=== PATIENT | female | born 1945 | race Caucasian/White ===

== ENCOUNTER 2019-09-09 10:26 | Outpatient (CLI) | payer MEDICARE, SELFPAY ==
--- NOTE | 2019-09-09 10:33 | MM_ITS ---
WS: [id number] SCREENING DIGITAL MAMMOGRAM WITH CAD HISTORY: SCREENING COMPARISON: None available. Bilateral CC and MLO views submitted. Computer aided detection analyzed. Breast composition: There are scattered areas of fibroglandular density. Lobulated mass in the upper- outer quadrant of the LEFT breast at a middle depth measures 10.8 mm in diameter. May be superimposed fibroglandular tissue and adjacent vein. Needs to be further evaluated. Additional benign calcificat ions in each breast. LEFT breast: Spot compression views (CC and MLO). True ML. Ultrasound to follow if abnormality humza hope. MM/[place] [id number] IMPRESSION: BI-RADS: 0-Incomplete: Need additional imaging evaluation FOLLOW UP: Need Additional Imaging
== END 2019-09-09 10:27 | disposition home or self-care (01) ==
LOC: RAD 10:26
PROVIDERS: Family Provider Family Medicine; PCP Family Medicine; Visit Provider Family Medicine
DX: Z12.31 Encounter for screening mammogram for malignant neoplasm of breast (principal)
CPT/HCPCS: 77067

== ENCOUNTER 2019-09-21 09:49 | Outpatient (CLI) | payer MEDICARE, SELFPAY ==
--- NOTE | 2019-09-21 09:57 | US_ITS ---
WS: [id number] ADDITIONAL VIEWS LEFT MAMMOGRAM LEFT BREAST ULTRASOUND HISTORY: LT BREAST MASS COMPARISON: 09/09/2019 LEFT MAMMOGRAM: Spot compression views and true ML. Focal asymmetry persists in the upper outer quadrant of the LEFT breast. Margins are very indistinct in the density is nearly equal to the adjacent breast tissue. This area becomes slightly less apparen t as compared to the prior screening examination. No distortion. LEFT BREAST ULTRASOUND 2-D and color Doppler imaging submitted. No abnormalities noted in the upper outer quadrant of the LEFT breast. US/US breast LT limited* [id number] IMPRESSION: BI-RADS: 3-Probably Benign FOLLOW UP: 6 Month Follow-up Vague asymmetry upper-outer quadrant of LEFT breast. Recommend 6 month follow-u p. Mammogram and ultrasound follow-up recommended.
== END 2019-09-21 09:50 | disposition home or self-care (01) ==
LOC: RADSHAW 09:54
PROVIDERS: Family Provider Family Medicine; PCP Family Medicine; Visit Provider Family Medicine
DX: N63.21 Unspecified lump in the left breast, upper outer quadrant (principal)
CPT/HCPCS: 76642; 77065

== ENCOUNTER 2019-10-05 13:12 | Outpatient (CLI) | payer MEDICARE, SELFPAY ==
--- NOTE | 2019-10-05 14:31 | PFTS_ITS ---
Date of Study:10/05/19 Date of Dictation: MECHANICS: Forced vital capacity (FVC) is normal. Forced expiratory volume in one second (FEV1) is reduced. FEV1/FVC is reduced. FLOW VOLUME LOOP: Reduced flow at all lung volumes. LUNG VOLUMES: Total lung capacity (TLC) is normal. Residual volume (RV) is increased. DIFFUSING CAPACITY FOR CARBON MONOXIDE: Mildly reduced. This has not been corrected for hemoglobin. INTERPRETATION: The pulmonary function tests are consistent with moderate obstructive ventilatory defect. There is significant postbronchodilator response. There is evidence of air trapping without hyperinflation. Gas exchange (DLCO) is mildly reduced. MTDD
== END 2019-10-05 13:13 | disposition home or self-care (01) ==
PROVIDERS: Family Provider Family Medicine; PCP Family Medicine; Visit Provider Family Medicine
DX: R06.2 Wheezing (principal); F17.210 Nicotine dependence, cigarettes, uncomplicated
CPT/HCPCS: 94060; 94726; 94729; J7611

== ENCOUNTER 2020-02-09 09:52 | Outpatient (CLI) | payer MEDICARE, SELFPAY ==
--- NOTE | 2020-02-09 09:59 | MM_ITS ---
WS: [id number] LEFT DIGITAL MAMMOGRAPHY WITH CAD CLINICAL INFORMATION: ABNORMAL MAMMOGRAM COMPARISON: September 21, 2019 TECHNIQUE: 5 views of the left breast were obtained. FINDINGS: Fatty-replaced left breast. Left breast is stable in appearance. Stable vague asymmetry upper outer q uadrant left breast. This is unchanged. Ultrasound is pending. ULTRASOUND BREAST LEFT TECHNIQUE: Ultrasound left breast focused area of concern. CLINICAL INFORMATION: ABNORMAL MAMMOGRAM COMPARISON: September 21, 2019 FINDINGS: Ultrasound left breast obtained at the 1 to 3:00 position. Normal underlying breast tissue. No cystic or solid lesions. No suspicious abnormalities. MM/[place] [id number] IMPRESSION: BI-RADS: 2-Benign FOLLOW UP: 1 Year Follow-up Recommend return to annual screening mammography.
== END 2020-02-09 09:53 | disposition home or self-care (01) ==
LOC: RAD 09:57
PROVIDERS: PCP Family Medicine; Visit Provider Family Medicine
DX: R92.8 Other abnormal and inconclusive findings on diagnostic imaging of breast (principal)
CPT/HCPCS: 76642; 77065

== ENCOUNTER 2020-02-27 12:12 | Observation (INO) | payer MEDICARE, SELFPAY ==
--- NOTE | 2020-02-17 10:08 | ANES.PREANE2 ---
Pre-Anesthetic Assessment Pre-Anesthetic Assessment: Height/Weight: Height 1.65 m Preop Diagnosis: Kne pain Proposed Procedure: Operation Date: 02/27/20 09:50 Proposed Procedures p Left Total Knee Arthroplasty 64607/M17.12(Left) - Carroll Gutierrez MD Familial anesthetic complications: None Social: Social History: No alcohol and No tobacco Exam: Pre-Anes Outpt Exam: alert, oriented x 3 and regular rate & rhythm Additional Exam Findings (including area of procedure): coarse breath sounds b/l Airway: Cervical ROM: WNL MP: 3 Dentition: False Pulmonary: Pulmonary: COPD (BID breathing treatments ) and CHILDS CV/HEM: CV/HEM: HTN : : None reported Hepatic: Hepatic: None reported GI: GI: None reported Metabolic: Metabolic: Hyperlipidemia Musc/skel: Musc/skel: OA/DJD Neuropsych: Neuropsych: None reported Anesthetic Plan: ASA status: 3 Anesthesia: General and Regional (specify below) Other: adductor Risk of > 500 ml blood loss (7ml/kg in children): Yes, adequate IV access and fluids planned PFSH Anesthesia PFSH: Social History (Updated 02/07/20 @ 09:30 by Bogdan Ponce LPN) Smoking and tobacco status: never smoked Alcohol intake: never Data Anesthesia Cardiac Studies: No Data to Display
--- NOTE | 2020-02-17 10:32 | ECG_ITS ---
[facility] ED Test Date: 2020-02-17 Pat Name: Keyona Chavarria Department: Room: Gender: Female V Belt Curer: : 1945 Requested By: Ena Lee Order Number: [id number] Gee MD: Chriss Guan M.D. Measurements Intervals Maud Rate: 65 P: 62 DE: 160 QRS: -8 QRSD: 83 T: 58 QT: 354 QTc: 369 Interpretive Statements SINUS RHYTHM No previous ECG available for comparison Electronically Signed On 02-17-2020 21:52:29 CDT by Chriss Guan M.D. [id number]
[2020-02-17 10:34] VITALS: BMI 33.3
[2020-02-27] VITALS (26 sets, daily range): BP systolic 134–225; BP diastolic 70–165; PULSE 59–88; RESP 9–24; TEMP 36.2–36.9; O2SAT 90–97
[2020-02-27] MEDS: sodium chloride 0.9% 1,000 ML 100 ML IV (08:39)
[2020-02-27] MEDS: sodium chloride 0.9% 1,000 ML 30 ML IV (08:40)
--- NOTE | 2020-02-27 09:21 | ANES.PROC ---
Anesthesia Procedures Procedure/Date: 02/27/20 Nerve Block ^: Nerve Block 1: Main Anesthesia: general anesthesia Time Out Performed: Yes Consent: requested by attending/covering physician, risks and benefits reviewed and patient agrees to proceed Nerve block location: adductor canal (left) Anesthesia monitors applied: pulse oximetry, EKG, BP cuff and oxygen Nerve block position: supine Anesthetic Used: ropivicaine 0.5% and with decadron (4mg) Amount of anesthesia used (mL): 30 Ultrasound used to: recognize landmarks Nerve Stimulator Used?: No Interscalene/Femoral BLK: 4 stimuplex 21 g needle used for position and inplane approach, visualize local anesthetic spread and no vascular puncture identified Injection: neg aspiration of heme Patient Tolerated Procedure: well and no complications Complications: none
--- NOTE | 2020-02-27 10:22 | W.PM.OPSUD ---
Surgery/Procedure H&P Update DATE OF PROCEDURE: February 27, 2020 DATE H&P PERFORMED: 02/07/20 PREOP DIAGNOSIS: Osteoarthritis left knee PLANNED PROCEDURE: Operation Date: 02/27/20 09:50 Proposed Procedures p Left Total Knee Arthroplasty 05616/M17.12(Left) - Carroll Gutierrez MD
--- NOTE | 2020-02-27 11:06 | SUR.OPER ---
called daughter and notified her of surgery start.
--- NOTE | 2020-02-27 12:21 | PM.OP ---
Operative Report Date of procedure: February 27, 2020 Pre-op Diagnosis: Osteoarthritis left knee Post-op diagnosis: same Post-op Findings: Same Procedure Done: Left total knee arthroplasty Pathology: none sent Surgeon: Carroll Gutierrez Anesthesia: General and Nerve Block (Adductor canal) Estimated blood loss (mL): 350 Complications: None Findings: Patient had severe eburnation over the medial femoral condyle, medial tibial plateau, patella and trochlea Procedure: The patient was taken to the operating room. Patient was given 1 g of tranexamic acid . The above anesthesia provided by the anesthesia service. A timeout was performed. The patient was prepped and draped in the usual fashion with the lower extremity exposed. A anterior incision was made, midline, from a point proximal to the patella to the distal tibial tubercle. Knee was entered through a medial parapatellar approach. the patellar fat pad was resected to provide better visibility. Retractors were placed medially and laterally adjacent to the tibial plateau. The femoral canal was drilled in line with the longitudinal axis of the femur. Intramedullary femoral guide for used to make a distal femoral cut in 5 degrees of valgus, resecting 8 mm from the more prominent condyle. Next the extra medullary tibial guide was placed in alignment with the longitudinal axis of the tibia. The cutting guides were set to remove just over 9 mm from the high tibial plateau. The proximal tibia was then cut. The femoral measuring guide was then placed over the distal femur. Rotation was verified checking the relationship of the guide to the condyle and the trochlear groove. The femur was measured and cut for the desired femoral component. The desired tibial baseplate was then chosen. A trial reduction with the femur tibial baseplate and polyethylene was done, assuring that the knee was stable throughout full motion. Ligament balancing no more than a release of the deep medial collateral ligament and removal of medial osteophytes. The tibia was prepared for the tibial baseplate. Patellar thickness was then measured. The patella was cut removing articular cartilage and prepared for appropriate size patellar button. All surfaces were cleaned with pulsatile lavage. The femur tibia and patella were then press-fit into place. The posterior capsule and collateral ligaments were then injected with a solution of 100 mL of 0.2% ropivacaine, 1 mL of a 1:1000 epinephrine solution, and 30 mg of Toradol. Final polyethylene component was then snapped into place into the tibia. 2 grams of tranexamic acid were applied to the wound. The tourniquet was deflated. The tranxanemic acid was left contact with the knee for 5 minutes before the knee was irrigated with saline. The extensor retinaculum was closed with 1 Ethibond. The subcutaneous tissues were closed with 2-0 Vicryl and the skin was closed with skin ruddy. A compressive dressing was applied. The patient was taken to recovery room in stable condition. Copybar total knee arthroplasty components were used includin) Size 3 triathalon cruciate retaining femoral component 2) Size 3 Tritanium tibial component 3) 82 mm /10 mm thickness Tritanium asymetric patella 4) Size 3/13 mm thickness CR tibial bearing insert
[2020-02-27] MEDS: fentaNYL 50 mcg/mL INJ 2mL IVP ×2 (12:34→12:56)
--- NOTE | 2020-02-27 12:34 | XR_ITS ---
NOTE: Report was unsigned for reason: Order was edited. Original Signature date and time was: 02/27/20 @1300 WS: [id number] LEFT KNEE 2 VIEWS AP and cross table lateral imaging is submitted. HISTORY: Status post left total knee arthroplasty. COMPARISON: 01/26/2020 Total knee replacement prosthetic devices are in good position and alignment. Normal position of the patella. Posterior patella prosthesis.. Numerous postsurgical sutures are noted over the anterior knee and there are normal postoperative changes in the soft tissues consistent with air, blood and edema. No complications are evident. MTDD XR/XR knee LT 3V* [id number] IMPRESSION: Satisfactory appearance of the recent LEFT knee arthroplasty.
[2020-02-27] MEDS: ipratropium 0.5 mg/2.5 mL Neb INHALATION (12:42)
--- NOTE | 2020-02-27 12:48 | SUR.PHASEI ---
1229 PATIENT TO PACU FROM OR. RESTLESS IN BED, C/O PAIN. DRESSING INTACT TO LEFT KNEE WITH FRANCINE BANDAGE IN PLACE. LEFT PEDAL PULSE, STRONG, MARKED. TABARES CATH DRAINING WITH CLEAR YELLOW URINE. PATIENT PLACED ON SIMPLE MASK AT 8L, SPO2 95%.
[2020-02-27] MEDS: hyDRALAzine 20 mg/mL INJ 1 mL 5 MG IVP (13:27)
--- NOTE | 2020-02-27 13:42 | SUR.PHASEI ---
1333 PATIENT TO MED SURG AT THIS TIME. PAIN TO LEFT KNEE IMPROVED. FIRST ICE IN PLACE.
[2020-02-27] MEDS: lactated ringers 1,000 ML 80 ML IV (14:26)
[2020-02-27] MEDS: oxyCODONE 5 mg IR Tab/Cap PO ×2 (15:17→19:45)
[2020-02-27] MEDS: chlorhexidine gluconate 0.12% Btl 473 mL 30 ML MUCOUS MEM ×2 (17:20→20:13)
[2020-02-27] MEDS: mupirocin oint 22 gm 1 APPLIC TOPICAL (17:22)
[2020-02-27] MEDS: calcium carbonate 500 mg Chew Tablet 1000 MG PO (17:22)
[2020-02-27] MEDS: iron polysaccharide complex 150 mg Capsule PO (17:22)
[2020-02-27] MEDS: sennosides-docusate Tablet 2 TAB PO (17:22)
[2020-02-27] MEDS: CELEcoxib 200 mg Capsule PO (20:13)
[2020-02-28] VITALS (10 sets, daily range): BP systolic 129–180; BP diastolic 64–91; PULSE 75–87; RESP 16–22; TEMP 36.6–37.2; O2SAT 92–96
[2020-02-28] MEDS: oxyCODONE 5 mg IR Tab/Cap PO ×4 (02:23→15:43)
[2020-02-28] MEDS: lactated ringers 1,000 ML 80 ML IV (03:26)
[2020-02-28 04:25] LABS: Hemoglobin 12.6 g/dL (11.5-15.3)
--- NOTE | 2020-02-28 06:20 | SUR.OPER ---
PATIENT DID WELL THROUGH THE NIGHT. REPORTS OF PAIN AND CONTROLLED WITH PRN OXY IR. PATIENT DID NOT SLEEP MUCH. OUTPUT WNL.
--- NOTE | 2020-02-28 08:16 | PM.DCS ---
Discharge Providers Date of Admission: 02/27/20 12:12 Date of Discharge: February 28, 2020 Attending Provider at Admission: Carroll Gutierrez MD Attending Provider at Discharge: Carroll Gutierrez MD Primary Care Provider: Radhika Kaminski MD Diagnoses at Discharge Discharge Diagnosis (1) Status post left knee replacement: Status: Acute (2) Osteoarthritis of left knee: Status: Acute Reason for Visit Reason for Visit: patient agreed to pay $300.00 day of surgery Hospital Course Hospital Course: Patient was admitted for an elective left total knee arthroplasty on 02/27/2020. She did very well postoperatively. By the first day she was up with her walker independent. Her pain was controlled with oxycodone. She was thought stable for discharge. He was managed with aspirin and sequential compression dressings for deep venous thromboses. Physical Exam Narrative: EXAM NARRATIVE: On 02/28/2020 the patient left knee dressing was clean and dry. She can perform a straight leg raise. He was visualized ambulatory with a walker. She had no distal neurovascular deficits I can appreciate. Urinary Catheter Management^: Taylor: Cath Placed During This Visit: yes, but has since been removed by the nurse Reason for Continuing Indwelling Catheter: Decision to DC Catheter Urinary Catheter Date of Insertion: 02/27/20 Urinary Catheter Time of Insertion: 10:35 Date Urinary Catheter Removed: 02/28/20 Time Urinary Catheter Discontinued: 07:18 Discharge Data Data Completed and Pending: Completed Studies During Hospitalization Category Date Time Status XR knee LT 3V* [id number] Routine Exams 02/27/20 12:34 Completed Labs from last 24 hours 02/28/20 03:15 Hgb 12.6 Vitals: Last Vital Signs Temp 98.9 F 02/28/20 04:48 Pulse 87 02/28/20 04:48 Resp 16 02/28/20 06:48 BP 147/73 02/28/20 04:48 Pulse Ox 92 02/28/20 04:48 Discharge Plan Discharge Patient Disposition: Home, Self-Care Condition: Stable Prescriptions: New oxycodone 5 mg Tablet 5 mg PO Q4H PRN (Reason: Moderate Pain) Qty: 40 RF: 0 aspirin 325 mg Tablet,Delayed Release (Dr/Ec) 325 mg PO DAILY Qty: 30 RF: 0 Continued lisinopril 5 mg tablet 15 mg PO DAILY RF: 0 lovastatin 10 mg tablet 10 mg PO DAILY RF: 0 mupirocin 2 % ointment 1 applic TOPICAL BID Qty: 22 RF: 0 meloxicam 7.5 mg Tablet 15 mg PO DAILY RF: 0 Vitamin D3 10 mcg (400 unit) Capsule 10 mcg PO DAILY RF: 0 Fish Oil 1,000 mg (120 mg-180 mg) Capsule 2 cap PO DAILY RF: 0 Vitamin B-12 5,000 mcg/mL Drops 5,000 mcg SUBLINGUAL DAILY RF: 0 Discharge Orders: Discharge Order (Routine); Ordered 02/28/20 Ordered By: Carroll Gutierrez Other Ambulatory Orders: DME: Walker (Order) Location: None Selected Ordered By: Carroll Gutierrez Referrals: [facility] [place] [Outside] [facility] ([facility]) [Outside] Carroll Gutierrez MD [Physician] - 03/12/20 2:45 pm Discharge Diet: Advance as tolerated Discharge Activity: Resume usual activity Activity Restrictions/Additional Instructions: May shower once incisions completely free of drainage. Replaced dressings as needed for drainage.. Take oxycodone for breakthrough pain. Exercises per physical therapy. Ice and elevate knees as needed for pain and swelling.. Discharge Attestations Time Spent in Discharge Care*: other Quality Metrics Clinical Quality Measures During this hospital stay, did patient experience: None Coding Level of Care Code Acute Therapy Coordinator for [facility] Diagnoses Status post left knee replacement Z96.652 Osteoarthritis of left knee M17.12
[2020-02-28] MEDS: lisinopril 10 mg Tablet 15 MG PO (09:27)
[2020-02-28] MEDS: multivitamin therapeutic Tablet 1 TAB PO (09:28)
[2020-02-28] MEDS: aspirin 325 mg EC Tablet PO (09:28)
[2020-02-28] MEDS: sennosides-docusate Tablet 2 TAB PO (09:28)
[2020-02-28] MEDS: cholecalciferol (vitamin D3) 1,000 unit Tablet 1000 UNIT PO (09:29)
[2020-02-28] MEDS: atorvastatin 40 mg Tablet 20 MG PO (09:29)
[2020-02-28] MEDS: CELEcoxib 200 mg Capsule PO (09:29)
[2020-02-28] MEDS: calcium carbonate 500 mg Chew Tablet 1000 MG PO (09:30)
[2020-02-28] MEDS: iron polysaccharide complex 150 mg Capsule PO (09:30)
[2020-02-28] MEDS: mupirocin oint 22 gm 1 APPLIC TOPICAL (09:31)
--- NOTE | 2020-02-28 17:59 | PC.NURSE ---
Pt taken to personal vehicle in wheelchair. Mask worn when she left room until she removed outside. All discharge questions gone over with pt and daughter.
== END 2020-02-28 18:00 | disposition home or self-care (01) ==
LOC: MEDSURG 12:12
PROVIDERS: Admitting Provider Orthopaedic Surgery; PCP Family Medicine; Visit Provider Orthopaedic Surgery
PROC: (CPT 27447; principal; 2020-02-27 09:50)
DX: M17.12 Unilateral primary osteoarthritis, left knee (principal); J44.9 Chronic obstructive pulmonary disease, unspecified; I10 Essential (primary) hypertension; E78.5 Hyperlipidemia, unspecified; M19.90 Unspecified osteoarthritis, unspecified site
CPT/HCPCS: 27447; 12345; 36415; 51702; 73560; 73562; 85018; 93005; 96365; 96366; 96374; 97110; 97116; 97161; 97166; 97530; C1776; G0378; J0131; J0360; J0690; J1100; J1580; J2001; J2405; J2704; J2795; J3010; J7030; J7611; J7644

== ENCOUNTER → 2020-04-10 14:13 | Outpatient (BNVA) | payer MEDICARE, SELFPAY | PROVIDERS: PCP Family Medicine; Visit Provider Orthopaedic Surgery | DX: Z47.1 Aftercare following joint replacement surgery (principal); Z96.652 Presence of left artificial knee joint | CPT/HCPCS: 73560; 73565 ==

== ENCOUNTER 2020-04-17 18:33 | Inpatient (IN) | payer MEDICARE, SELFPAY ==
[2020-04-17 19:20] VITALS: BP 122/79; PULSE 88; RESP 18; TEMP 35.9; O2SAT 96; BMI 33.3
--- NOTE | 2020-04-17 20:16 | XRR_ITS ---
PROCEDURE INFORMATION: Exam: XR Left Knee Exam date and time: 04/17/2020 10:27 PM Age: 74 years old Clinical indication: Injury or trauma; Fall; Initial encounter; Blunt trauma; Left; Injury date: 04/17/20; Prior surgery; Surgery type: Lt knee TECHNIQUE: Imaging protocol: XR Left knee. Views: 3 views. COMPARISON: CR XR knee LT 1-2V [id number] 04/10/2020 2:20 PM FINDINGS: Bones/joints: Status post left knee arthroplasty with femoral, tibial, and patellar components. There is a comminuted fracture of the distal femoral metaphysis. The major distal fragment has been displaced approximately 2.5 cm posteriorly relative to the major proximal fragment. The metallic hardware is intact. No knee dislocation. Large knee joint effusion. Soft tissues: No subcutaneous gas or radiopaque foreign body identified. XR/XR knee LT 3V* [id number] IMPRESSION: 1. There is a comminuted fracture of the distal femoral metaphysis. The major distal fragment has been displaced approximately 2.5 cm posteriorly relative to the major proximal fragment.
--- NOTE | 2020-04-17 21:08 | ED_ITS ---
HPI - Fall General: Chief Complaint: Fall Stated Complaint: fell Time Seen by Provider: 04/17/20 20:55 Source: patient Mode of arrival: ambulatory Limitations: no limitations History of Present Illness: HPI Narrative: 74-year-old female who had a knee replacement her right knee in February. Patient states she tripped and fell 2 hours before arrival. She landed on her right knee and has had severe right knee pain since then. States pain is 9 out of 10 is much worse with movement and cannot stand. She denies any other injuries. MD complaint: fall Onset (ago): hour(s) Fall from: standing Associated symptoms-after fall: Denies abdominal pain, chest pain or headache(s) Review of Systems Const: Denies: fever(s), chills, body aches or change in appetite Eyes: Denies: blurry vision or eye discomfort ENMT: Denies: throat pain or dental pain Card: Denies: chest pain Resp: Denies: dyspnea GI: Denies: abdominal pain, nausea, vomiting or diarrhea : Denies: dysuria Musc: Reports: joint pain Skin/Breast: Denies: rash Neuro: Denies: headache(s) Psych: Denies: depression Christiano/Lymph: Denies: easy bruising All/Imm: Denies: urticaria PFSH ED PFSH: Social History Smoking and tobacco status: never smoked Alcohol intake: never Physical Exam Const: COMMON NORMALS: no acute distress, patient oriented x3 and healthy appearing HENMT: COMMON NORMALS: normocephalic and atraumatic HEAD & SCALP: normocephalic and atraumatic Eye: COMMON NORMALS: Equal, round and reactive pupils present and EOMs intact bilaterally PUPIL: Yes Equal, round and reactive pupils present Neck/C-Spine: COMMON NORMALS: full ROM and supple Chest: COMMONS NORMALS: normal inspection of the chest and normal palpation of entire chest wall Resp: COMMON NORMALS: normal respiratory effort, No retractions, No use of accessory muscles and clear to auscultation bilaterally AUSCULTATION: clear to auscultation bilaterally Cardio: COMMON NORMALS: regular rate, regular rhythm and No murmurs present (Cardio) RATE: regular rate RHYTHM: regular rhythm GI: COMMON NORMALS: Normal to inspection, nondistended, normoactive bowel sounds present, Soft to palpation, non-tender and no masses PALPATION: Yes So ft to palpation Extremity: NARRATIVE EXTREMITY EXAM: Tenderness over right knee. Distal pulses intact patient is feeling to sensation to her foot is able to plantar and dorsiflex her foot. Neuro: COMMON NORMALS: patient oriented x3, moves all extremities and no focal motor deficits Psych: COMMON NORMALS: mental status grossly normal, Normal thought process present and cooperative THOUGHT PROCESS: Normal thought process present Skin: COMMON NORMALS: no rashes or lesions noted and no wounds GENERAL SKIN EXAM: no rashes or lesions noted Course Vital Signs: Vital signs: Vital Signs Temperature 96.6 F L 04/17/20 19:20 Pulse Rate 75 04/17/20 21:18 Respiratory Rate 18 04/17/20 21:18 Blood Pressure 131/68 04/17/20 21:18 Pulse Oximetry 97 04/17/20 21:18 MDM - Fall MDM Narrative: Medical decision making narrative: Patient presents with a dis cristino femur fracture to her right leg. I spoke to Dr. Garcia who is consulted. I also spoke to Dr. Pina who is admitting. Patient placed in a knee immobilizer. Patient has distal pulses intact and able to feel sensations after knee immobilizer placement as well. Patient's been stable while in the ER. Lab Data: Labs: Lab Results 04/17/20 04/17/20 Range/Units 21:15 21:15 WBC 19.4 H (4.0-10.0) 10^3/ uL RBC 4.93 (4.1-5.3) 10^6/u L Hgb 13.9 (11.5-15.3) g/dL Hct 45.7 (37.0-47.0) % MCV 92.7 (81-99) fL MCH 28.2 (28.0-34.0) pg MCHC 30.4 (30.0-36.0) g/dL RDW 13.2 (12.1-15.1) % Plt Count 310 (130-400) 10^3/c mm MPV 8.7 (7.4-10.4) fL Neut % (Auto) 79.0 % Lymph % (Auto) 13.9 % Coles % (Auto) 5.6 % Eos % (Auto) 0.5 % Baso % (Auto) 0.4 % Neut # (Auto) 15.34 H (1.8-7.7) 10^3/u L Lymph # (Auto) 2.7 (0.8-4.8) 10^3/u L Coles # (Auto) 1.1 H (0.2-0.9) 10^3/u L Eos # (Auto) 0.1 (0.0-0.8) 10^3/u L Baso # (Auto) 0.1 (0.0-0.1) 10^3/u L Nucleated RBC % (a uto) 0 % Nucleated RBCs # 0.0 /100WBC Sodium 138 (136-145) mmol/L Chloride 104 (98-107) mmol/L GFR Calculation Not Reportable Calculated Osmolal ity 286 (285-295) mOsm/k g Calcium 9.6 (8.5-10.5) mg/dL Imaging Data^: xr r knee: Attestation: I personally reviewed and interpreted this imaging study as follows: My impression: Distal femur fracture noted Discharge Plan Discharge Patient Disposition: Admitted As Inpatient Clinical Impression: Fall Qualifiers: Encounter type: initial encounter Qualified Code(s): W19.XXXA - Unspecified fall, initial encounter Femoral distal fracture Qualifiers: Encounter type: initial encounter Fracture type: closed Fracture morphology: unspecified fracture morphology Laterality: right Qualified Code(s): S72.401A - Unspecified fracture of lower end of right femur, initial encounter for closed fracture Condition: Stable Referrals: Radhika Kaminski MD [Primary Care Provider] - Coding Level of Care Code ED Loan Documents Closer for [facility] Fwd Exam Comprehensive
[2020-04-17 21:18] VITALS: BP 131/68; PULSE 75; RESP 18; O2SAT 97
[2020-04-17] MEDS: HYDROmorphone 1 mg/mL INJ 1 mL IVP (21:19)
[2020-04-17] MEDS: ondansetron 2 mg/ML SDV 2 mL 4 MG IVP (21:19)
[2020-04-17 21:22] LABS: Basophils # 0.1 10^3/uL (0.0-0.1); Basophils % 0.4 %; Eosinophils # 0.1 10^3/uL (0.0-0.8); Eosinophils % 0.5 %; Hematocrit 45.7 % (37.0-47.0); Hemoglobin 13.9 g/dL (11.5-15.3); Lymphocytes # 2.7 10^3/uL (0.8-4.8); Lymphocytes % 13.9 %; Mean Corpuscular HGB Conc 30.4 g/dL (30.0-36.0); Mean Corpuscular Hemoglobin 28.2 pg (28.0-34.0); Mean Corpuscular Volume 92.7 fL (81-99); Mean Platelet Volume 8.7 fL (7.4-10.4); Monocytes # 1.1 10^3/uL (0.2-0.9); Monocytes % 5.6 %; Neutrophils # 15.34 10^3/uL (1.8-7.7); Nucleated Red Blood Cells % 0 %; Platelet Count 310 10^3/cmm (130-400); Red Blood Count 4.93 10^6/uL (4.1-5.3); Red Cell Distribution Width 13.2 % (12.1-15.1); White Blood Count 19.4 10^3/uL (4.0-10.0)
--- NOTE | 2020-04-17 21:24 | XRR_ITS ---
PROCEDURE INFORMATION: Exam: XR Chest, 1 View Exam date and time: 04/17/2020 9:55 PM Age: 74 years old Clinical indication: Other: HTN TECHNIQUE: Imaging protocol: XR of the chest Views: 1 view. COMPARISON: CR Chest 2 views* [id number] 05/17/2014 1:32 PM FINDINGS: Lungs: The lungs are clear bilaterally. Pulmonary vasculature within normal limits. Pleural space: No visible pneumothorax or pleural effusion. Heart/Mediastinum: Cardiomediastinal silhouette contour within normal limits. Bones/joints: No emergent findings identified. XR/XR chest 1V portable [id number] IMPRESSION: 1. No radiographic findings of acute cardiopulmonary disease.
[2020-04-17 21:42] LABS: Blood Urea Nitrogen 28 mg/dL (8-23); Calcium 9.6 mg/dL (8.5-10.5); Carbon Dioxide 19 mmol/L (22-29); Chloride 104 mmol/L (98-107); Glucose 154 mg/dL (65-115); Osmolality Calculated 286 mOsm/kg (285-295); Sodium 138 mmol/L (136-145)
[2020-04-17 21:45] LABS: Anion Gap 19.2 (5-19); Potassium 4.2 mmol/L (3.5-5.1)
[2020-04-17 22:05] LABS: INR 1.02 (0.8-1.2)
--- NOTE | 2020-04-17 22:35 | P.HP_ITS ---
Providers/Chief Complaint Admitting Physician: Chriss Medina MD Primary Care Provider: Radhika Kaminski MD Chief Complaint: fell History of Present Illness Keyona Chavarria is a 74 year old female who carries history of osteoarthritis, non- oxygen dependent COPD, coronary artery disease, GERD, osteoarthritis of left knee status post knee replacement came in after sustaining a fall. Patient is stating that she was planning to go to the restaurant today when she lost her balance, she tripped over and fell on her left side and heard a popping in her knee. She was not able to bear any weight, she called her family, she was brought to the ER, diagnostics in the ER revealed distal left femur fracture, knee brace was placed, orthopedic consult placed, patient did not experience any chest pain, shortness of breath, palpitations, fever, change in bowel movements or dysuria before this event. She is endorsing to losing her balance and falling on the concrete ground. She is denying any previous history of seizures or arrhythmias. She is tachycardic and tachypneic. MARY on BMP. He is afebrile. Chest x-ray with linear atelectasis versus infiltrate right lower base, I will give her Levaquin and fluids because she meet sepsis criteria Review of Systems Const: Reports: chills, body aches and fatigue; Denies: fever(s) Eyes: Denies: change in vision ENMT: Denies: throat pain Card: Denies: chest pain Resp: Denies: dyspnea GI: Denies: abdominal pain : Denies: flank pain Musc: Denies: neck pain Skin/Breast: Reports: lesions Neuro: Denies: headache(s) Psych: Denies: anxiety Endo: Denies: polyuria Christiano/Lymph: Denies: easy bruising All/Imm: Denies: urticaria Medications/Allergies Home Medications Medication Instructions Recorded Confirmed Last Taken Type lisinopril 5 mg tablet 15 mg PO DAILY tab 02/07/20 04/17/20 04/17/20 History lovastatin 10 mg tablet 10 mg PO DAILY 02/07/20 04/17/20 04/17/20 History Vitamin B-12 5,000 mcg SUBLINGUAL DAILY 02/17/20 04/17/20 04/17/20 History cholecalciferol (vitamin D3) 10 mcg PO DAILY 02/17/20 04/17/20 04/17/20 History [Vitamin D3] meloxicam 15 mg PO DAILY 02/17/20 04/17/20 04/17/20 History omega 8-obh-wkq-fish oil [Fish Oil] 2 cap PO DAILY 02/17/20 04/17/20 04/17/20 History mupirocin 2 % topical ointment 1 applic TOPICAL BID #22 gm 02/20/20 04/17/20 Unknown Rx albuterol sulfate 2 puff INHALATION Q4H PRN 04/17/20 04/17/20 04/17/20 History fluticasone propion-salmeterol 1 inh INHALATION BID 04/17/20 04/17/20 04/17/20 History [Wixela Inhub] Allergies Allergy/AdvReac Type Severity Reaction Status Date / Time No Known Allergies Allergy Verified 04/17/20 21:32 PFSH Acute PFSH: Medical History Asthma 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 with reduced DLCO however total lung capacity is normal increased residual volume COPD (chronic obstructive pulmonary disease) Coronary disease GERD (gastroesophageal reflux disease) Osteoarthritis of left knee Sinus bradycardia Surgical History Coronary angioplasty status Status post left knee replacement Family History Brother CAD (coronary artery disease) Social History (Updated 04/18/20 @ 01:43 by Chriss Medina MD) Smoking and tobacco status: former smoker Alcohol intake: never Substance/Drug Use: never Housing: House Vitals/I&O/Wt Last Vital Signs Temp 96.6 F L 04/17/20 19:20 Pulse 75 04/17/20 21:18 Resp 18 04/17/20 21:18 BP 131/68 04/17/20 21:18 Pulse Ox 97 04/17/20 21:18 Weight last 48 hrs Weight 90.718 kg Physical Exam Narrative: EXAM NARRATIVE: Very pleasant elderly female currently laying comfortably in her bed She has left-sided knee brace no vascular compromise of bilateral lower extremities No active respiratory distress Afebrile S1, S2 no tachycardia heart failure Abdomen soft nontender nondistended bowel sound present Neurologically no focal deficit EOMI, PERRLA Appropriate mood and affect Lungs are clear to auscultation No skin ulcers found Data : 04/17/20 21:15 04/17/20 21:15 A&P Assessment and plan (1) Femoral distal fracture: Status: Acute Qualifiers: Encounter type: initial encounter Fracture morphology: unspecified fracture morphology Fracture type: closed Laterality: left Qualified Code(s): S72.402A - Unspecified fracture of lower end of left femur, initial encounter for closed fracture (2) Fall: Status: Acute Qualifiers: Encounter type: initial encounter Qualified Code(s): W19.XXXA - Unspecified fall, initial encounter (3) Sepsis: Status: Acute (4) Community acquired pneumonia: Status: Acute Additional A&P Information Left distal femoral fracture Left knee brace Analgesia with bowel regimen Orthopedic count No vascular compromise of lower extremity Sepsis secondary to community-acquired pneumonia Right lower base infiltrate Tachycardic, tachypneic, leukocytosis, I will treat her with Levaquin Check urine antigen Low risk for SARS COVID-19 Hypertension: Currently normotensive, monitor overnight, hold lisinopril to avoid vaso-plegic shock perioperatively Patient has good functional capacity, considering urgent nature of the surgery would not require any cardiac work-up, RCRI class I risk Full code VT prophylaxis currently on SCDs, anticipating surgical intervention tomorrow morning N.p.o. Attestations Medical Necessity Statement*: Anticipating stay in the hospital course more than 2 midnights currently need IV antibiotics for pneumonia and need surgical intervention for left femur fracture Time Spent in Patient Care: (>than 50% of time spent in counselling and/or direct pt care on unit) . 40 minutes Coding Level of Care Code Acute Cost Estimating Manager for Chg Fwd Diagnoses Femoral distal fracture S72.402A Encounter type: initial encounter Fracture morphology: unspecified fracture morphology Fracture type: closed Laterality: left Fall W19.XXXA Encounter type: initial encounter Sepsis A41.9 Community acquired pneumonia J18.9
[2020-04-17 22:47] VITALS: BP 115/75; PULSE 102; RESP 14; O2SAT 94
[2020-04-17 22:52] VITALS: BP 123/56; PULSE 85; RESP 14; O2SAT 96
[2020-04-17] MEDS: dextrose 5%-sod chloride 0.45% 1,000 ML 75 ML IV (23:37)
[2020-04-17 23:58] VITALS: RESP 20
[2020-04-17] MEDS: morphine 4 mg/mL SDV 1 mL IVP (23:58)
[2020-04-18] VITALS (22 sets, daily range): BP systolic 81–133; BP diastolic 51–86; PULSE 75–103; RESP 14–24; TEMP 36.4–37.7; O2SAT 90–100
--- NOTE | 2020-04-18 | SCC_ITS ---
Procedure Done: Open reduction internal fixation left distal femur 205.9 seconds of fluoroscopic guidance, for a cumulative dose of 18.67 mGy, was provided to Dr. Gutierrez by the radiology department. C-arm images of the LEFT knee were saved for the patient's permanent record. [facility]
[2020-04-18] MEDS: levofloxacin-dextrose 5 % 750 MG/150 ML PREMIX 100 MG IV (04:02)
[2020-04-18 05:06] LABS: Basophils % 0.3 %; Eosinophils % 0.2 %; Hematocrit 37.4 % (37.0-47.0); Hemoglobin 11.4 g/dL (11.5-15.3); Lymphocytes # 2.9 10^3/uL (0.8-4.8); Lymphocytes % 22.5 %; Mean Corpuscular HGB Conc 30.5 g/dL (30.0-36.0); Mean Corpuscular Hemoglobin 27.9 pg (28.0-34.0); Mean Corpuscular Volume 91.4 fL (81-99); Mean Platelet Volume 8.9 fL (7.4-10.4); Monocytes # 1.1 10^3/uL (0.2-0.9); Monocytes % 8.7 %; Neutrophils % 67.9 %; Nucleated Red Blood Cells % 0 %; Platelet Count 271 10^3/cmm (130-400); Red Blood Count 4.09 10^6/uL (4.1-5.3); Red Cell Distribution Width 13.2 % (12.1-15.1)
[2020-04-18 05:29] LABS: Anion Gap 13.5 (5-19); Blood Urea Nitrogen 33 mg/dL (8-23); Calcium 8.7 mg/dL (8.5-10.5); Carbon Dioxide 22 mmol/L (22-29); Chloride 104 mmol/L (98-107); Glucose 153 mg/dL (65-115); Osmolality Calculated 280 mOsm/kg (285-295); Potassium 4.5 mmol/L (3.5-5.1); Sodium 135 mmol/L (136-145)
[2020-04-18 06:04] LABS: Add Urine Microscopic? YES; Bacteria Urine TRACE; Bilirubin Urine 1+ (NEGATIVE); Blood Urine Neg (Negative); Glucose Urine UA Norm (Normal); Ketones Urine Negative (Negative); Leukocyte Esterase Urine Negative (Negative); Nitrate Urine Negative (Negative); Protein Urine 1+ (Negative); RBC Urine RARE /hpf (0-2); Squamous Epithelial Cell Urine RARE (0-5); Urine Appearance Cloudy (CLEAR); Urine Color Yellow (Yellow); Urobilinogen Urine 1 mg/dL (Negative); WBC Urine 0-4 /hpf (0-5); pH Urine 5 (5-7)
[2020-04-18] MEDS: sennosides-docusate Tablet 1 TAB PO (08:37)
[2020-04-18] MEDS: morphine 4 mg/mL SDV 1 mL IVP (08:56)
--- NOTE | 2020-04-18 14:13 | PC.CHAP ---
Pastoral Care Encounter/Spiritual Assessment Type of Contact [] Declined buckle coverer visit [] Patient/Family/Request visit [] Outpatient visit [] Follow-up visit [] Physician referral [] Code/Alert [X] Routine visit [] Staff referral [] Actively dying [] Patient sleeping [] Family support [] [] Out of room [] Palliative care [] [] Receiving care in room [] Pre-surgical visit [] Trauma [] Long length of stay [] ICU visit [] Other: Relational/Emotional Strength [] Patient feels connected with others/family/visitors/staff [] Distress [] Loneliness/isolation [] Abandonment Spirituality of Patient [] Person of Mago [] Attends Uatsdin of their Mago [] Believes in Prayer [] Reads Bible or Sabianism materials [] There are Spiritual issues to be addressed Office Services Specialist Interventions [] Prayer [] Active listening [] Non-anxious presence [] Spiritual/emotional support [] Crisis/trauma care [] Spiritual counseling [] Bereavement support [] Provided bereavement packet [] Provided Bible/devotional materials [] Provided toy/stuffed animal, coloring book to patient or family member [] Provided Communion [] Anointing/[place] [] Salvation [] Completed spiritual assessment [] Other: Impact on Illness or Injury [] Angry [] Fearful [] Anxious [] Often cries [] Exhaustion [] Unable to work [] Unable to attend muslim [] Unable to walk/stand [] Unable to read [] Unable to drive [] Unable to eat/drink [] Unable to sleep [] Unable to be with family [] Patient intubated [] Other: Summary Time spent with patient
--- NOTE | 2020-04-18 16:09 | ANES.PREANE2 ---
Pre-Anesthetic Assessment Pre-Anesthetic Assessment: Height/Weight: Height 1.65 m Weight 90.718 kg Temp Pulse Resp BP Pulse Ox 98.6 F 75 18 81/51 94 04/18/20 15:22 04/18/20 15:22 04/18/20 15:22 04/18/20 15:22 04/18/20 15:22 Preop Diagnosis: Osteoarthritis left knee Proposed Procedure: Operation Date: 04/18/20 16:00 Proposed Procedures p ORIF LEFT KNEE PERIPROSTHETIC FX(Left) - Carroll Gutierrez MD Was Beta Nataly taken within 24 hours: Yes Last intake: Intake Last Liquid Date 04/17/20 Last Liquid Time 18:00 Last Solid Date 04/17/20 Last Solid Time 18:00 Social: Social History: No alcohol and No tobacco Exam: Pre-Anes Outpt Exam: alert, oriented x 3, clear to auscultation bilaterally and regular rate & rhythm Airway: MP: 2 Dentition: Partials Pulmonary: Pulmonary: COPD CV/HEM: CV/HEM: HTN : : None reported Hepatic: Hepatic: None reported GI: GI: GERD Metabolic: Metabolic: DM Musc/skel: Musc/skel: None reported Neuropsych: Neuropsych: None reported Anesthetic Plan: ASA status: 3E Anesthesia: General Meds/Allergies Current Medications: Current Medications Generic Name Dose Route Start Last Admin Trade Name Freq PRN Reason Stop Dose Admin Dextrose/Sodium Ch loride 1,000 mls @ 75 ml s/hr 04/17/20 23:27 04/18/20 15:12 Dextrose 5%-Sod Chloride 0.45% IV Infused .[id number] VICKY Infusion Levofloxacin/Dextr ose 750 mg in 150 mls @ 100 mls/hr 04/18/20 02:00 04/18/20 08:58 Levaquin-D5w IV Infused Q24H VICKY Infusion Protocol Morphine Sulfate 4 mg 04/17/20 23:27 04/18/20 08:56 Morphine IVP 4 mg Q4H PRN Administration SEVERE PAIN Senna/Docusate Sod ium 1 tab 04/18/20 09:00 04/18/20 08:37 Senna-S PO 1 tab BID VICKY Administration PFSH Anesthesia PFSH: Medical History Asthma 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 with reduced DLCO however total lung capacity is normal increased residual volume COPD (chronic obstructive pulmonary disease) Coronary disease GERD (gastroesophageal reflux disease) Osteoarthritis of left knee Sinus bradycardia Surgical History Coronary angioplasty status Status post left knee replacement Family History Brother CAD (coronary artery disease) Social History (Updated 04/18/20 @ 01:43 by Chriss Medina MD) Smoking and tobacco status: former smoker Alcohol intake: never Substance/Drug Use: never Housing: House Data Anesthesia CBC & Chem 7: 04/18/20 04:40 04/18/20 04:40 Other Labs: Laboratory Results - last 48 hr 04/17/20 04/17/20 04/17/20 21:15 21:15 21:15 WBC 19.4 H RBC 4.93 Hgb 13.9 Hct 45.7 MCV 92.7 MCH 28.2 MCHC 30.4 RDW 13.2 Plt Count 310 MPV 8.7 Neut % (Auto) 79.0 Lymph % (Auto) 13.9 [place] % (Auto) 5.6 Eos % (Auto) 0.5 Baso % (Auto) 0.4 Neut # (Auto) 15.34 H Lymph # (Auto) 2.7 [place] # (Auto) 1.1 H Eos # (Auto) 0.1 Baso # (Auto) 0.1 Nucleated RBC % (auto) 0 Nucleated RBCs # 0.0 PT 13.70 INR 1.02 Sodium 138 Potassium 4.2 Chloride 104 Carbon Dioxide 19 L Anion Gap 19.2 H BUN 28 H Creatinine 1.3 H GFR Calculation Not Reportable Glucose 154 H Calculated Osmolality 286 Calcium 9.6 Urine Color Urine Appearance Urine pH Ur Specific [place] Urine Protein Urine Glucose (UA) Urine Ketones Urine Blood Urine Nitrate Urine Bilirubin Urine Urobilinogen Ur Leukocyte Esterase Urine RBC Urine WBC Ur Squamous Epith Cells Amorphous Sediment Urine Bacteria 04/18/20 04/18/20 04/18/20 04:00 04:40 04:40 WBC 13.0 H RBC 4.09 L Hgb 11.4 L Hct 37.4 MCV 91.4 MCH 27.9 L MCHC 30.5 RDW 13.2 Plt Count 271 MPV 8.9 Neut % (Auto) 67.9 Lymph % (Auto) 22.5 [place] % (Auto) 8.7 Eos % (Auto) 0.2 Baso % (Auto) 0.3 Neut # (Auto) 8.80 H Lymph # (Auto) 2.9 [place] # (Auto) 1.1 H Eos # (Auto) 0.0 Baso # (Auto) 0.0 Nucleated RBC % (auto) 0 Nucleated RBCs # 0.0 PT INR Sodium 135 L Potassium 4.5 Chloride 104 Carbon Dioxide 22 Anion Gap 13.5 BUN 33 H Creatinine 2.0 H GFR Calculation Not Reportable Glucose 153 H Calculated Osmolality 280 L Calcium 8.7 Urine Color Yellow Urine Appearance Cloudy Urine pH 5 Ur Specific [place] 1.030 Urine Protein 1+ H Urine Glucose (UA) Norm Urine Ketones Negative Urine Blood Neg Urine Nitrate Negative Urine Bilirubin 1+ H Urine Urobilinogen 1 H Ur Leukocyte Esterase Negative Urine RBC Rare Urine WBC 0-4 H Ur Squamous Epith Cells Rare Amorphous Sediment Not Reportable Urine Bacteria Trace Micro: Microbiology 04/18/20 04:00 Bacterial Antigens - Final Urine,Clean Catch 04/18/20 04:00 Legionella Urinary Antigen - Final Urine Catheterized Cardiac Studies: No Data to Display
[2020-04-18] MEDS: sodium chloride 0.9% 1,000 ML 30 ML IV (16:35)
--- NOTE | 2020-04-18 16:43 | PM.CONSULT ---
Providers/Reason For Consult Consulting Physican/Specialty*: Carroll Gutierrez MD Reason for Consult*: Left periprosthetic distal femur fracture Attending Physician: Westley Shepard Primary Care Provider: Radhika Kaminski MD History of Present Illness History of Present Illness Keyona Chavarria is a 74 year old female who underwent elective left total knee arthroplasty on 02/27/2020. She was doing well. She was actually seen in my clinic on April 10, 2028 where she was ambulating without her walker and I returned it. Apparently yesterday she was at a [employer] restaurant. She stood up from the jensen tripped and fell landing on the anterior aspect of her left knee. She felt a pop and had immediate pain. She was seen in our emergency room where radiographs revealed a periprosthetic left supracondylar femur fracture Meds/Allergies Home Medications and Allergies Home Medications Medication Instructions Recorded Confirmed Last Taken Type lisinopril 5 mg tablet 15 mg PO DAILY tab 02/07/20 04/17/20 04/17/20 History lovastatin 10 mg tablet 10 mg PO DAILY 02/07/20 04/17/20 04/17/20 History Vitamin B-12 5,000 mcg SUBLINGUAL DAILY 02/17/20 04/17/20 04/17/20 History cholecalciferol (vitamin D3) 10 mcg PO DAILY 02/17/20 04/17/20 04/17/20 History [Vitamin D3] meloxicam 15 mg PO DAILY 02/17/20 04/17/20 04/17/20 History omega 0-wsd-zwd-fish oil [Fish Oil] 2 cap PO DAILY 02/17/20 04/17/20 04/17/20 History mupirocin 2 % topical ointment 1 applic TOPICAL BID #22 gm 02/20/20 04/17/20 Unknown Rx albuterol sulfate 2 puff INHALATION Q4H PRN 04/17/20 04/17/20 04/17/20 History fluticasone propion-salmeterol 1 inh INHALATION BID 04/17/20 04/17/20 04/17/20 History [Wixela Inhub] Allergies Allergy/AdvReac Type Severity Reaction Status Date / Time No Known Allergies Allergy Verified 04/17/20 21:32 Current Medications Current Medications Generic Name Dose Route Start Last Admin Trade Name Freq PRN Reason Stop Dose Admin Dextrose/Sodium Chloride 1,000 mls @ 75 mls/hr 04/17/20 23:27 04/18/20 15:12 Dextrose 5%-Sod Chloride 0.45% IV Infused .[id number] VICKY Infusion Levofloxacin/Dextrose 750 mg in 150 mls @ 100 mls/hr 04/18/20 02:00 04/18/20 08:58 Levaquin-D5w IV Infused Q24H VICKY Infusion Protocol Sodium Chloride 1,000 mls @ 30 mls/hr 04/18/20 16:15 04/18/20 16:35 Sodium Chloride 0.9% IV 04/19/20 16:14 30 mls/hr .Q24H VICKY Administration Morphine Sulfate 4 mg 04/17/20 23:27 04/18/20 08:56 Morphine IVP 4 mg Q4H PRN Administration SEVERE PAIN Senna/Docusate Sodium 1 tab 04/18/20 09:00 04/18/20 08:37 Senna-S PO 1 tab BID VICKY Administration PFSH Acute PFSH: Medical History Asthma 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 with reduced DLCO however total lung capacity is normal increased residual volume COPD (chronic obstructive pulmonary disease) Coronary disease GERD (gastroesophageal reflux disease) Osteoarthritis of left knee Sinus bradycardia Surgical History Coronary angioplasty status Status post left knee replacement Family History Brother CAD (coronary artery disease) Social History (Updated 04/18/20 @ 01:43 by Chriss Medina MD) Smoking and tobacco status: former smoker Alcohol intake: never Substance/Drug Use: never Housing: House Vitals/I&O/Wt Last Vital Signs Temp 98.6 F 04/18/20 15:22 Pulse 75 04/18/20 15:22 Resp 18 04/18/20 15:22 BP 81/51 04/18/20 15:22 Pulse Ox 94 04/18/20 15:22 04/18/20 04/18/20 04/18/20 06:59 14:59 22:59 Intake Total 100 / 100 150 / 150 1000 / 1150 Output Total 60 / 60 Balance 40 / 40 150 / 150 1000 / 1150 Weight last 48 hrs Weight 200 lb Physical Exam Narrative: EXAM NARRATIVE: Patient's left knee is in immobilizer. She has swelling about the knee. Her skin is intact. She has pain with any efforts at motion of the knee. She will flex and extend her left toes and ankle. Her sensation is intact light touch. She has a strong left tibialis posterior pulse and good perfusion in her digits Urinary Catheter Management^: Taylor: Cath Placed During This Visit: yes Reason for Continuing Indwelling Catheter: Perioperative Use in Selected Surgeries Urinary Catheter Date of Insertion: 04/18/20 Urinary Catheter Time of Insertion: 04:00 Data Micro: Micro: Microbiology 04/18/20 04:00 Bacterial Antigens - Final Urine,Clean Catch 04/18/20 04:00 Legionella Urinary Antigen - Final Urine Catheterize d Imaging^: Xray Ortho: Radiologist's impression: I reviewed radiographs of the left knee. The patient has a left periprosthetic distal femur fracture. Her components appear to be well fixed. A&P Assessment and plan (1) Femoral distal fracture: I discussed options with the patient. To be mobilized and have any chance of resuming ambulatory status she will need surgical stabilization of the fracture. It appears the components are well fixed. I would recommend doing this with a distal femoral locking plate. Kerrie risk with surgery. I told her this fracture can be difficult to heal. I discussed risk of bleeding and infection. I discussed risk of nonunion malunion. I discussed the possible need for future revision of her components. She understands and agrees to proceed. We will proceed to the operating room today. Status: Acute Qualifiers: Encounter type: initial encounter Fracture morphology: unspecified fracture morphology Fracture type: closed Laterality: left Qualified Code(s): S72.402A - Unspecified fracture of lower end of left femur, initial encounter for closed fracture Coding Level of Care Code Acute Saw Feeder for [facility] Fwd Diagnoses Femoral distal fracture S72.402A Encounter type: initial encounter Fracture morphology: unspecified fracture morphology Fracture type: closed Laterality: left
--- NOTE | 2020-04-18 19:24 | XR_ITS ---
WS: [id number] Left knee, AP and lateral views, 04/18/2020 Clinical Data: OR PICS Comparison: Left knee, 04/17/2020. Findings: The fracture of the distal left femur has been reduced with the aid of a lateral plate extending from at least the mid femoral region to the condylar region. The plate is fixed with multiple orthopedic screws. The femoral component of the left knee arthroplasty is in good position. XR/XR knee LT 1-2V [id number] Impression: 1. Internal fixation of comminuted fracture of distal left femur. 2. The femoral component of the left knee arthroplasty is in good position.
--- NOTE | 2020-04-18 19:34 | PM.OP ---
Operative Report Date of procedure: April 18, 2020 Pre-op Diagnosis: Periprosthetic left femur fracture, status post left total knee arthroplasty Post-op diagnosis: same Post-op Findings: Same Procedure Done: Open reduction internal fixation left distal femur Implants: Alexander AXSOS 12 hole distal femoral locking plate Pathology: none sent Surgeon: Carroll Gutierrez Anesthesia: General Estimated blood loss (mL): 400 Complications: None Findings: The patient had a mildly comminuted fracture of her left distal femur oblique just above the level of the anterior flare of her total knee arthroplasty. She had osteopenia consistent with age. Condition: stable Disposition: PACU Brief History: The patient is a 74-year-old female who underwent left total knee arthroplasty approximately 6 weeks ago. She was functioning well and ambulatory with her walker. The day prior to surgery she fell in a restaurant on her flexed knee with immediate pain. Radiographs revealed a left supracondylar femur fracture Procedure: The patient was taken to the operating room and given 2 g of Ancef. She was prepped and draped in the supine position with the left lower extremity exposed. A timeout was performed. Initially an 8 cm long incision was made over the lateral knee from a level the joint line extending proximally. Dissection was carried through the subcutaneous fat with electrocautery and the fascia nikolai was split. The vastus lateralis musculature was elevated bringing us to the lateral femur and the joint. With longitudinal traction the fracture could be disengaged and aligned. The 12 hole AXSOS plate was then passed from distal to proximal along the lateral femur. Is provisionally held in place with 2 K wires. Utilizing the targeting guide a proximal unicortical cortical screw was placed securing the proximal plate to the lateral femur. Final alignment was accomplished with a [place] elevator and gentle traction. Combination of locking and nonlocking screws were placed through the distal femoral fragment all with fair purchase. The guide was used to past series of the locking screws through the proximal shaft and nonlocking screws more proximally all with reasonable purchase. The process of his securing 1 of the proximal cancellous screws a head did break off.. Due to the extensive proximal fixation the screw was left in place. The wound was irrigated with saline. Intraoperative images were taken with fluoroscopy verifying anatomic alignment. The fascia nikolai was closed laterally with 0 Ethibond. Deep tissues were closed with: 2-0 Vicryl. The skin was closed with skin ruddy. Xeroflo gauze 4 x 4's and ABD pad and compressive Souleymane wrap were applied. The patient was placed in a longer knee immobilizer. She was extubated taken recovery in stable condition.
[2020-04-18] MEDS: morphine 4 mg/mL SDV 1 mL 2 MG IVP ×2 (19:50→19:55)
[2020-04-18] MEDS: sodium chloride 0.9% 1,000 ML 80 ML IV (21:38)
--- NOTE | 2020-04-18 22:25 | PC.NURSE ---
O2 O2 sat 88-89% on room air with VS check. Placed O2 at 2l with sat up to 94%. Explained to pt will probably just need tonight while sleeping
--- NOTE | 2020-04-18 23:55 | P.PN_ITS ---
Subjective Subjective: Interval history: Deneis pain. Having some wheezing, but says it is much less than she used to. Was just recently started on treatment for COPD. Vitals/I&O/Wt Last Vital Signs Temp 98.3 F 04/18/20 23:29 Pulse 94 04/18/20 23:29 Resp 18 04/18/20 23:29 BP 119/69 04/18/20 23:29 Pulse Ox 98 04/18/20 23:29 04/18/20 04/18/20 04/19/20 14:59 22:59 06:59 Intake Total 150 / 150 1420 / 1570 Output Total 650 / 650 Balance 150 / 150 770 / 920 Weight last 48 hrs Weight 90.718 kg Physical Exam Const: COMMON NORMALS: no acute distress and patient oriented x3 HENMT: COMMON NORMALS: oropharynx normal Eye: OTHER: Disconjugate gaze. Neck/C-Spine: COMMON NORMALS: no JVD Resp: COMMON NORMALS: normal respiratory effort AUSCULTATION: wheezes (mild) Cardio: COMMON NORMALS: no JVD, regular rhythm, S1 normal heart sound present, S2 normal heart sound present and No murmurs present (Cardio) RHYTHM: regular rhythm HEART SOUNDS: S1 normal heart sound present and S2 normal heart sound present GI: COMMON NORMALS: Normal to inspection, nondistended, normoactive bowel s ounds present, Soft to palpation and non-tender PALPATION: Yes Soft to palpation Extremity: COMMON NORMALS: no joint enlargement and no pedal edema NARRATIVE EXTREMITY EXAM: shortened LLE. Swellng at the knee. Neuro: COMMON NORMALS: patient oriented x3 and moves all extremities Skin: COMMON NORMALS: no rashes or lesions noted GENERAL SKIN EXAM: no rashes or lesions noted Urinary Catheter Management^: Taylor: Cath Placed During This Visit: yes Reason for Continuing Indwelling Catheter: Perioperative Use in Selected Surgeries Urinary Catheter Date of Insertion: 04/18/20 Urinary Catheter Time of Insertion: 04:00 Data : 04/18/20 04:40 04/18/20 04:40 Micro: Microbiology 04/18/20 04:00 Bacterial Antigens - Final Urine,Clean Catch 04/18/20 04:00 Legionella Urinary Antigen - Final Urine Catheterized A&P Assessment and plan (1) Femoral distal fracture: ORIF L distal femur fracture today. Monitory post-operatively. Mild wheezes, but doing well on room air. Status: Acute Qualifiers: Encounter type: initial encounter Fracture morphology: unspecified fracture morphology Fracture type: closed Laterality: left Qualified Code(s): S72.402A - Unspecified fracture of lower end of left femur, initial encounter for closed fracture (2) Fall: Status: Acute Qualifiers: Encounter type: initial encounter Qualified Code(s): W19.XXXA - Unspecified fall, initial encounter (3) Sepsis: CAP, as below. Collect blood and sputum cultures. Urine not suggestive of UTI. No RN RESEARCH, GI, integumentary symptoms to suggest infection. Status: Acute (4) Community acquired pneumonia: She had a low grade fever. Sats good on RA pre-operatively, subsequently requiring a little oxygen. BP steady. Monitor. Follow up cultures. Bacterial antigens neg. Status: Acute Additional A&P Information Hypertension: hold lisinopril COPD: resume inhalers. Duonebs PRN. Full code Attestations Medical Necessity Statement*: Continue admission for management following distal femoral fracture repair, PNA. 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
[2020-04-19] VITALS (10 sets, daily range): BP systolic 89–122; BP diastolic 47–67; PULSE 84–97; RESP 16–22; TEMP 36.3–37.2; O2SAT 88–97
[2020-04-19] MEDS: ceFAZolin 1,000 MG in sodium chloride 0.9% (plus) 50 ML 100 MG IV ×3 (00:46→17:16)
[2020-04-19 01:26] LABS: Basophils % 0.2 %; Eosinophils % 0.2 %; Hematocrit 31.1 % (37.0-47.0); Hemoglobin 9.2 g/dL (11.5-15.3); Lymphocytes # 1.7 10^3/uL (0.8-4.8); Mean Corpuscular HGB Conc 29.6 g/dL (30.0-36.0); Mean Corpuscular Hemoglobin 28.8 pg (28.0-34.0); Mean Corpuscular Volume 97.2 fL (81-99); Mean Platelet Volume 8.7 fL (7.4-10.4); Monocytes % 8.1 %; Neutrophils % 76.9 %; Nucleated Red Blood Cells % 0 %; Platelet Count 221 10^3/cmm (130-400); Red Cell Distribution Width 13.4 % (12.1-15.1); White Blood Count 12.1 10^3/uL (4.0-10.0)
[2020-04-19 01:44] LABS: Alanine Aminotransferase 7 U/L (0-33); Alkaline Phosphatase 55 IU/L (35-105); Anion Gap 14.9 (5-19); Aspartate Amino Transferase 11 U/L (0-32); Blood Urea Nitrogen 42 mg/dL (8-23); Calcium 7.6 mg/dL (8.5-10.5); Carbon Dioxide 17 mmol/L (22-29); Chloride 109 mmol/L (98-107); Globulin 2.2 g/dL (1.3-4.6); Glucose 136 mg/dL (65-115); Osmolality Calculated 282 mOsm/kg (285-295); Potassium 4.9 mmol/L (3.5-5.1); Sodium 136 mmol/L (136-145); Total Bilirubin 0.3 mg/dL (0.15-1.2); Total Protein 5.2 g/dL (6.6-8.7)
[2020-04-19] MEDS: levofloxacin-dextrose 5 % 750 MG/150 ML PREMIX 100 MG IV (05:25)
[2020-04-19] MEDS: HYDROcodone-acetaminophen 5-325 mg Tablet PO ×2 (05:28→10:35)
[2020-04-19] MEDS: albuterol 8 gm MDI 2 PUFF INHALATION ×2 (08:38→21:48)
[2020-04-19] MEDS: sodium chloride 0.9% 1,000 ML 80 ML IV ×2 (10:36→21:32)
--- NOTE | 2020-04-19 12:13 | ANE.PACU2 ---
Inpatient post-anesthesia follow up: Airway intact: Yes Vital signs: Temperature 98.0 F Pulse Rate [Monito r] 88 Pulse Rate 94 Respiratory Rate 18 Blood Pressure [Le ft Arm] 122/79 Blood Pressure 89/53 Pulse Oximetry 93 Oxygen Delivery Me thod Room Air Oxygen Flow Rate 2 Fraction of Inspir ed Oxygen Hydration adequate: Yes Nausea and vomiting: No Pain level: 7 Mental status: Baseline
--- NOTE | 2020-04-19 13:22 | PM.PN ---
Subjective Subjective: Interval history: She states she is doing all right. Does not have any breathing difficulties. Does note that her blood pressure is low today, and states that usually does not have low blood pressure. Vitals/I&O/Wt Last Vital Signs Temp 98.0 F 04/19/20 11:10 Pulse 94 04/19/20 11:10 Resp 18 04/19/20 11:10 BP 89/53 04/19/20 11:10 Pulse Ox 93 04/19/20 11:10 04/18/20 04/19/20 04/19/20 22:59 06:59 14:59 Intake Total 1530 / 1680 200 / 1880 1350 / 1350 Output Total 650 / 650 350 / 1000 200 / 200 Balance 880 / 1030 -150 / 880 1150 / 1150 Weight last 48 hrs Weight 90.718 kg Physical Exam Const: COMMON NORMALS: no acute distress and patient oriented x3 HENMT: COMMON NORMALS: oropharynx normal Eye: OTHER: Disconjugate gaze. Neck/C-Spine: COMMON NORMALS: no JVD Resp: COMMON NORMALS: normal respiratory effort AUSCULTATION: wheezes (mild) Cardio: COMMON NORMALS: no JVD, regular rhythm, S1 normal heart sound present, S2 normal heart sound present and No murmurs present (Cardio) RHYTHM: regular rhythm HEART SOUNDS: S1 normal heart sound present and S2 normal heart sound present GI: COMMON NORMALS: Normal to inspection, nondistended, normoactive bowel sounds present, Soft to palpation and non-tender PALPATION: Yes Soft to palpation Extremity: COMMON NORMALS: no joint enlargement and no pedal edema NARRATIVE EXTREMITY EXAM: shortened LLE. Swellng at the knee. Neuro: COMMON NORMALS: patient oriented x3 and moves all extremities Skin: COMMON NORMALS: no rashes or lesions noted GENERAL SKIN EXAM: no rashes or lesions noted Urinary Catheter Management^: Taylor: Cath Placed During This Visit: yes Reason for Continuing Indwelling Catheter: Perioperative Use in Selected Surgeries Urinary Catheter Date of Insertion: 04/18/20 Urinary Catheter Time of Insertion: 04:00 Data : 04/19/20 01:10 04/19/20 01:10 Micro: Microbiology 04/19/20 01:05 Blood Culture - Preliminary Blood SPECIMEN COLLECTED 04/19/20 01:10 Blood Culture - Preliminary Blood SPECIMEN COLLECTED A&P Assessment and plan (1) Hypotension: Mean BP 58. WBC count is still some elevated, although this appears to be improving. She denies rest or discomfort apart from having some wheezing. She is saturating 93% on room air. Has been on antibiotics for suspected pneumonia. Discussed with Ortho. Has had some decline in hemoglobin down to 9.2. Will recheck later today. Has not had excessive pain medication. Fracture secondary to trauma. Has met all suspicion of infection of the left knee joint. At this time we will give her a normal saline bolus 500 mL. Will check lactic acid. Continue antibiotics as above. Due to repeat use of steroids in the past, concern is for contribution from adrenal insufficiency. Okay with Ortho to start for now on stress dose steroid. Monitor blood pressures. Wean down steroids as soon as possible due to the bone fractures, surgery. Discussed with patient. She is agreeable. Status: Acute (2) Femoral distal fracture: ORIF L distal femur fracture today. Monitory post-operatively. Mild wheezes, but doing well on room air. She is touchdown weightbearing only on the left lower extremity. She lives alone, and so after discharge would be agreeable to go to SNF for additional rehabilitation. Status: Acute Qualifiers: Encounter type: initial encounter Fracture morphology: unspecified fracture morphology Fracture type: closed Laterality: left Qualified Code(s): S72.402A - Unspecified fracture of lower end of left femur, initial encounter for closed fracture (3) Fall: Status: Acute Qualifiers: Encounter type: initial encounter Qualified Code(s): W19.XXXA - Unspecified fall, initial encounter (4) Sepsis: CAP Blood and sputum cultures. Urine not suggestive of UTI. No SOLID STATE TESTER, GI, integumentary symptoms to suggest infection. Status: Acute (5) Community acquired pneumonia: She had a low grade fever. Resolved so far without recurrence. Sats good on RA pre-operatively, subsequently requiring a little oxygen. BP steady. Monitor. Follow up cultures. Bacterial antigens neg. Status: Acute Additional A&P Information Hypertension: hold lisinopril COPD: resume inhalers. Duonebs PRN. Full code Attestations Medical Necessity Statement*: Continue admission for assessment of management of hypotension, acute anemia, postoperative care after left distal femoral fracture and repair. 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
--- NOTE | 2020-04-19 14:02 | PM.PN ---
Subjective Subjective: Interval history: Patient describes little pain. Tolerating p.o. intake. Vitals/I&O/Wt Last Vital Signs Temp 98.0 F 04/19/20 11:10 Pulse 94 04/19/20 11:10 Resp 18 04/19/20 11:10 BP 122/58 04/19/20 13:42 Pulse Ox 93 04/19/20 11:10 04/18/20 04/19/20 04/19/20 22:59 06:59 14:59 Intake Total 1530 / 1680 200 / 1880 1350 / 1350 Output Total 650 / 650 350 / 1000 200 / 200 Balance 880 / 1030 -150 / 880 1150 / 1150 Weight last 48 hrs Weight 200 lb Physical Exam Narrative: EXAM NARRATIVE: Left knee dressing clean and dry. Flexes and extends left toes and ankle. Comparable tibialis posterior pulse. Urinary Catheter Management^: Taylor: Cath Placed During This Visit: yes Reason for Continuing Indwelling Catheter: Perioperative Use in Selected Surgeries Urinary Catheter Date of Insertion: 04/18/20 Urinary Catheter Time of Insertion: 04:00 Data : 04/19/20 01:10 04/19/20 01:10 Micro: Microbiology 04/19/20 01:05 Blood Culture - Preliminary Blood SPECIMEN COLLECTED 04/19/20 01:10 Blood Culture - Preliminary Blood SPECIMEN COLLECTED A&P Assessment and plan (1) Postoperative state: Patient has been bit hypertensive today. I suspect this is a result of pain medications. Therapy will continue to mobilize her. 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
[2020-04-19 16:24] LABS: Hemoglobin 8.1 g/dL (11.5-15.3)
[2020-04-19 16:40] LABS: Lactic Sepsis W/Reflex 1.4 mmol/L (0.5-2.2)
[2020-04-19] MEDS: predniSONE 20 mg Tablet PO (17:11)
[2020-04-19] MEDS: enoxaparin 40 mg/0.4 mL Syringe SUBCUT (21:34)
[2020-04-19] MEDS: HYDROcodone-acetaminophen 5-325 mg Tablet 1 TAB PO (21:40)
[2020-04-20] VITALS (12 sets, daily range): BP systolic 113–190; BP diastolic 66–80; PULSE 81–100; RESP 17–22; TEMP 36.4–36.9; O2SAT 92–99
[2020-04-20] MEDS: HYDROcodone-acetaminophen 5-325 mg Tablet 1 TAB PO ×4 (03:36→21:02)
[2020-04-20] MEDS: albuterol 8 gm MDI 2 PUFF INHALATION ×3 (03:58→21:18)
[2020-04-20 04:38] LABS: Basophils % 0.1 %; Hematocrit 25.8 % (37.0-47.0); Hemoglobin 7.9 g/dL (11.5-15.3); Lymphocytes # 1.2 10^3/uL (0.8-4.8); Lymphocytes % 15.3 %; Mean Corpuscular HGB Conc 30.6 g/dL (30.0-36.0); Mean Corpuscular Hemoglobin 28.2 pg (28.0-34.0); Mean Corpuscular Volume 92.1 fL (81-99); Monocytes # 0.6 10^3/uL (0.2-0.9); Monocytes % 7.8 %; Neutrophils # 5.77 10^3/uL (1.8-7.7); Neutrophils % 76.4 %; Nucleated Red Blood Cells % 0 %; Platelet Count 154 10^3/cmm (130-400); Red Cell Distribution Width 13.7 % (12.1-15.1); White Blood Count 7.6 10^3/uL (4.0-10.0)
[2020-04-20 05:00] LABS: Alanine Aminotransferase < 5 U/L (0-33); Alkaline Phosphatase 57 IU/L (35-105); Anion Gap 10.8 (5-19); Aspartate Amino Transferase 11 U/L (0-32); Blood Urea Nitrogen 28 mg/dL (8-23); Calcium 8.1 mg/dL (8.5-10.5); Carbon Dioxide 21 mmol/L (22-29); Chloride 111 mmol/L (98-107); Globulin 2.2 g/dL (1.3-4.6); Glucose 144 mg/dL (65-115); Osmolality Calculated 286 mOsm/kg (285-295); Potassium 4.8 mmol/L (3.5-5.1); Sodium 138 mmol/L (136-145); Total Bilirubin 0.2 mg/dL (0.15-1.2); Total Protein 5.2 g/dL (6.6-8.7)
[2020-04-20] MEDS: predniSONE 20 mg Tablet PO (08:36)
--- NOTE | 2020-04-20 09:29 | PC.SOCIAL ---
IMM update Pg. 2 of updated and given to patient, who verbalized understanding.
[2020-04-20] MEDS: sodium chloride 0.9% 1,000 ML 80 ML IV (11:41)
--- NOTE | 2020-04-20 13:50 | PC.NURSE ---
Physical Therapy in room assisting pt back to bed from chair. Pt tolerated well. Room is neat with 2 bed rails up, call light in reach, no linen on floor, bedside table within reach.
--- NOTE | 2020-04-20 15:28 | P.PN_ITS ---
Subjective Subjective: Interval history: Today she is feeling better. Her blood pressure has been better. Reports that she gets somewhat sleepy after pain medication. Denies chest pain or pressure. Wheezing is better today. Currently denies shortness of breath. Says has been working was with her incentive spirometer. Vitals/I&O/Wt Last Vital Signs Temp 98.1 F 04/20/20 11:52 Pulse 95 04/20/20 11:52 Resp 17 04/20/20 11:52 BP 142/70 04/20/20 11:52 Pulse Ox 96 04/20/20 11:52 04/20/20 04/20/20 04/20/20 06:59 14:59 22:59 Intake Total 1170 / 1170 Output Total 450 / 1500 450 / 450 Balance -450 / 1204.667 720 / 720 Physical Exam Const: COMMON NORMALS: no acute distress and patient oriented x3 HENMT: COMMON NORMALS: oropharynx normal Eye: OTHER: Disconjugate gaze. Very hard of hearing, right ear is the only site she hears out of. Neck/C-Spine: COMMON NORMALS: no JVD Resp: COMMON NORMALS: normal respiratory effort AUSCULTATION: wheezes (mild) Cardio: COMMON NORMALS: no JVD, regular rhythm, S1 normal heart sound present, S2 normal heart sound present and No murmurs present (Cardio) RHYTHM: regular rhythm HEART SOUNDS: S1 normal heart sound present and S2 normal heart sound present GI: COMMON NORMALS: Normal to inspection, nondistended, normoactive bowel sounds present, Soft to palpation and non-tender PALPATION: Yes Soft to palpation Extremity: COMMON NORMALS: no joint enlargement and no pedal edema NARRATIVE EXTREMITY EXAM: Left lower extremity well perfused. Neuro: COMMON NORMALS: patient oriented x3 and moves all extremities Skin: COMMON NORMALS: no rashes or lesions noted GENERAL SKIN EXAM: no jose hes or lesions noted Urinary Catheter Management^: Taylor: Cath Placed During This Visit: yes Reason for Continuing Indwelling Catheter: Perioperative Use in Selected Surgeries Urinary Catheter Date of Insertion: 04/18/20 Urinary Catheter Time of Insertion: 04:00 Data : 04/20/20 04:23 04/20/20 04:23 Micro: Microbiology 04/19/20 01:05 Blood Culture - Preliminary Blood NEGATIVE TO DATE 04/19/20 01:10 Blood Culture - Preliminary Blood NEGATIVE TO DATE A&P Assessment and plan (1) Community acquired pneumonia: Gradually improving. Was started on low-dose prednisone due to recurrent wheezing with hypoxia, with some component of bronchitis, COPD exacerbation. Oxygenation is improved. Today wheezing has resolved. Decrease prednisone dose to 10 mg for tomorrow, and if continues to do well may discontinue. No recurrence of fever. Continue antibiotics. Pending COVID-19 testing results for placement to correction facility. Monitor. Follow up cultures. Bacterial antigens neg. Status: Acute (2) Femoral distal fracture: ORIF L distal femur fracture. Caution with pain medicines as appears to be sensitive to them. She is touchdown weightbearing only on the left lower extremity. She lives alone, would benefit from going to SNF. Status: Acute Qualifiers: Encounter type: initial encounter Fracture morphology: unspecified frac ture morphology Fracture type: closed Laterality: left Qualified Code(s): S72.402A - Unspecified fracture of lower end of left femur, initial encounter for closed fracture (3) Hypotension: Resolved. Status: Acute (4) Fall: Would benefit from rehabilitation after discharge. Status: Acute Qualifiers: Encounter type: initial encounter Qualified Code(s): W19.XXXA - Unspecified fall, initial encounter (5) Sepsis: CAP Blood and sputum cultures. Urine not suggestive of UTI. No DIRECTOR OF GOLF, GI, integumentary symptoms to suggest infection. Status: Acute Additional A&P Information Hypertension: hold lisinopril due to MARY. Fluctuating blood pressures, although currently appears at goal. Will monitor for now. Change diet to cardiac. MARY: improving COPD: resume inhalers. Duonebs PRN. Full code Attestations Medical Necessity Statement*: Continue admission for assessment of management following femoral fracture and repair, community-acquired pneumonia, COPD exacerbation, disposition arrangements. 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
[2020-04-20] MEDS: enoxaparin 40 mg/0.4 mL Syringe SUBCUT (21:03)
[2020-04-20] MEDS: ipratropium-albuterol 3 mL Neb INHALATION (21:18)
--- NOTE | 2020-04-20 21:33 | PC.NURSE ---
pt increasingly wheezy from initial assessment at 1930 to 2099, pt minimally SOB so elected to put pt on 2Lnc. Expiratory weezes with no crackles. Fluids running at 80ml/hr. Respiratory to room for breathing treatment and confirmed no crackles or evidence of fluid over load. Will monitor.
[2020-04-21] VITALS (12 sets, daily range): BP systolic 157–196; BP diastolic 75–90; PULSE 82–105; RESP 16–20; TEMP 36.4–37.4; O2SAT 95–98
--- NOTE | 2020-04-21 00:06 | PC.NURSE ---
Patient's blood pressure is elevated 182/80. Patient's nurse been notified.
--- NOTE | 2020-04-21 02:41 | PC.NURSE ---
discovered in pts belongings on rounding that she had home medications in her possession. Went through medications and there were anti-nausea, and anti-spasmodic drugs in the bag. Spoke with the pt about policy and she agreed with sending her medications home with her son, who was at bedside at the time. Witnessed son leaving with said medications.
[2020-04-21] MEDS: levofloxacin-dextrose 5 % 750 MG/150 ML PREMIX 100 MG IV (05:11)
[2020-04-21] MEDS: sodium chloride 0.9% 1,000 ML 80 ML IV (05:15)
[2020-04-21 06:11] LABS: Basophils % 0.3 %; Eosinophils # 0.2 10^3/uL (0.0-0.8); Eosinophils % 3.1 %; Hematocrit 22.9 % (37.0-47.0); Hemoglobin 7.1 g/dL (11.5-15.3); Lymphocytes # 2.2 10^3/uL (0.8-4.8); Lymphocytes % 32.5 %; Mean Corpuscular Hemoglobin 28.3 pg (28.0-34.0); Mean Corpuscular Volume 91.2 fL (81-99); Mean Platelet Volume 9.2 fL (7.4-10.4); Monocytes # 0.4 10^3/uL (0.2-0.9); Monocytes % 6.3 %; Neutrophils # 3.93 10^3/uL (1.8-7.7); Neutrophils % 57.5 %; Nucleated Red Blood Cells % 0 %; Platelet Count 170 10^3/cmm (130-400); Red Blood Count 2.51 10^6/uL (4.1-5.3); Red Cell Distribution Width 13.6 % (12.1-15.1); White Blood Count 6.8 10^3/uL (4.0-10.0)
[2020-04-21 06:14] LABS: Coronavirus Lab Test PTC Negative
[2020-04-21 06:47] LABS: Alanine Aminotransferase < 5 U/L (0-33); Albumin Level 2.8 g/dL (3.5-5.2); Alkaline Phosphatase 55 IU/L (35-105); Anion Gap 11.3 (5-19); Aspartate Amino Transferase 10 U/L (0-32); Blood Urea Nitrogen 22 mg/dL (8-23); Calcium 8.3 mg/dL (8.5-10.5); Carbon Dioxide 22 mmol/L (22-29); Chloride 110 mmol/L (98-107); Globulin 2.3 g/dL (1.3-4.6); Glucose 105 mg/dL (65-115); Osmolality Calculated 285 mOsm/kg (285-295); Potassium 4.3 mmol/L (3.5-5.1); Sodium 139 mmol/L (136-145); Total Bilirubin 0.3 mg/dL (0.15-1.2); Total Protein 5.1 g/dL (6.6-8.7)
[2020-04-21] MEDS: predniSONE 10 mg Tablet PO (08:58)
[2020-04-21] MEDS: albuterol 8 gm MDI 2 PUFF INHALATION (09:17)
[2020-04-21] MEDS: HYDROcodone-acetaminophen 5-325 mg Tablet 1 TAB PO ×2 (11:05→18:52)
--- NOTE | 2020-04-21 15:17 | P.DS_ITS ---
Discharge Providers Date of Admission: 04/17/20 21:39 Date of Discharge: April 21, 2020 Attending Provider at Admission: Chriss Medina MD Attending Provider at Discharge: Westley Shepard Primary Care Provider: Radhika Kaminski MD Diagnoses at Discharge Discharge Diagnosis (1) Community acquired pneumonia: Status: Acute (2) Femoral distal fracture: Status: Acute Qualifiers: Encounter type: initial encounter Fracture morphology: unspecified fracture morphology Fracture type: closed Laterality: left Qualified Code(s): S72.402A - Unspecified fracture of lower end of left femur, initial encounter for closed fracture (3) Hypotension: Status: Acute (4) Fall: Status: Acute Qualifiers: Encounter type: initial encounter Qualified Code(s): W19.XXXA - Unspecified fall, initial encounter (5) Sepsis: Status: Acute Reason for Visit Reason for Visit: fell Hospital Course Hospital Course: 74-year-old lady with history of osteoarthritis, COPD, CAD, GERD, status post left TKA in January was admitted after she lost her balance, tripped and fell on the left side, with resultant distal femoral fracture, on presentation also noted with sepsis, community-acquired pneumonia. For this is been treated with Levaquin, with resolution of sepsis. MARY resolved as well. After discussion of treatment options with orthopedics elected to proceed with open reduction internal fixation which was done on 04/18. Has had some gradual hemoglobin decline, due to this received 1 unit PRBC transfusion today. Please follow-up hemoglobin after discharge. Taylor catheter was kept in place somewhat longer than usual as she had an episode of hypotension, although this appears to have been related to taking 2 tablets of hydrocodone with temporal relation, and subsequently has had no recurrence. Her breathing continues to improve, although was noted to have substantial wheezing and COPD exacerbation, requiring oxygen due to which he received after discussion with orthopedic surgery, a dose of 40 mg prednisone, which was next day cut down to 20, and today down to 10. As she still has some residual wheezing, this is for now cut down to 5 mg, and hopefully may be able to discontinue tomorrow so as to avoid complications with healing as discussed with her. Her COVID 19 PCR testing was negative. Bacterial antigens in urine negative. She will complete course of antibiotic with Levaquin. She otherwise has been having some pain in the left leg, but has been working physical therapy. She is touchdown weightbearing on the left only. Discussed with orthopedic surgery, and she was cleared for discharge from their perspective. Per recommendation she will continue on extended DVT prophylaxis for the next 4 weeks due to consideration of higher than normal risk for VTE. Please exercise caution with pain medications as her blood pressure appears to be sensitive to them. She is feeling well, and after receiving blood transfusion is eager to proceed to SNF to continue her rehabilitation. Physical Exam Const: COMMON NORMALS: no acute distress and patient oriented x3 HENMT: COMMON NORMALS: oropharynx normal Eye: OTHER: Disconjugate gaze. Very hard of hearing, right ear is the only site she hears out of. Neck/C-Spine: COMMON NORMALS: no JVD Resp: COMMON NORMALS: normal respiratory effort AUSCULTATION: wheezes (mild) Cardio: COMMON NORMALS: no JVD, regular rhythm, S1 normal heart sound present, S2 normal heart sound present and No murmurs present (Cardio) RHYTHM: regular rhythm HEART SOUNDS: S1 normal heart sound present and S2 normal heart sound present GI: COMMON NORMALS: Normal to inspection, nondistended, normoactive bowel sounds present, Soft to palpation and non-tender PALPATION: Yes Soft to palpation Extremity: COMMON NORMALS: no joint enlargement and no pedal edema NARRATIVE EXTREMITY EXAM: Left lower extremity well perfused. Neuro: COMMON NORMALS: patient oriented x3 and moves all extremities Skin: COMMON NORMALS: no rashes or lesions noted GENERAL SKIN EXAM: no rashes or lesions noted Urinary Catheter Management^: Taylor: Cath Placed During This Visit: yes Reason for Continuing Indwelling Catheter: Perioperative Use in Selected Surgeries Urinary Catheter Date of Insertion: 04/18/20 Urinary Catheter Time of Insertion: 04:00 Discharge Data Data Completed and Pending: Completed Studies During Hospitalization Category Date Time Status XR chest 1V ladi ble [id number] Stat Exams 04/17/20 21:24 Completed XR knee LT 1-2V 7 [id number] Routine Exams 04/18/20 19:24 Completed XR knee LT 3V* 73 [id number] Stat Exams 04/17/20 20:16 Completed Pending at discharge Category Date Time Status Blood Culture Sta t Lab 04/19/20 01:05 Results Sputum Culture an d Gram Stain Routi ne Lab 04/20/20 21:45 Results Labs from last 24 hours 04/21/20 04/21/20 04/20/20 05:45 05:45 08:10 WBC 6.8 RBC 2.51 L Hgb 7.1 L Hct 22.9 L MCV 91.2 MCH 28.3 MCHC 31.0 RDW 13.6 Plt Count 170 MPV 9.2 Neut % (Auto) 57.5 Lymph % (Auto) 32.5 [place] % (Auto) 6.3 Eos % (Auto) 3.1 Baso % (Auto) 0.3 Neut # (Auto) 3.93 Lymph # (Auto) 2.2 [place] # (Auto) 0.4 Eos # (Auto) 0.2 Baso # (Auto) 0.0 Nucleated RBC % (a uto) 0 Nucleated RBCs # 0.0 Sodium 139 Potassium 4.3 Chloride 110 H Carbon Dioxide 22 Anion Gap 11.3 BUN 22 Creatinine 0.8 GFR Calculation Not Reportable Glucose 105 Calculated Osmolal ity 285 Calcium 8.3 L Total Bilirubin 0.3 AST 10 ALT < 5 Alkaline Phosphata se 55 Total Protein 5.1 L Albumin 2.8 L Globulin 2.3 Nasal/Oral COVID-1 9 PCR Negative Blood Type Rho(D) Type Antibody Screen Antibody Identific ation Antigen Identifica tion Crossmatch 04/18/20 17:43 WBC RBC Hgb Hct MCV MCH MCHC RDW Plt Count MPV Neut % (Auto) Lymph % (Auto) [place] % (Auto) Eos % (Auto) Baso % (Auto) Neut # (Auto) Lymph # (Auto) [place] # (Auto) Eos # (Auto) Baso # (Auto) Nucleated RBC % (a uto) Nucleated RBCs # Sodium Potassium Chloride Carbon Dioxide Anion Gap BUN Creatinine GFR Calculation Glucose Calculated Osmolal ity Calcium Total Bilirubin AST ALT Alkaline Phosphata se Total Protein Albumin Globulin Nasal/Oral COVID-1 9 PCR Blood Type O Positive Rho(D) Type Positive Antibody Screen Positive Antibody Identific ation Anti-Jka Antigen Identifica tion Jka Antigen - NEG ATIVE Crossmatch See Detail Vitals: Last Vital Signs Temp 99.1 F 04/21/20 14:55 Pulse 94 04/21/20 14:55 Resp 17 04/21/20 14:55 BP 167/89 04/21/20 14:55 Pulse Ox 97 04/21/20 14:55 Discharge Plan Discharge Patient Disposition: Xfer SNF Condition: Stable Prescriptions: New hydrocodone-acetaminophen 5-325 mg Tablet 1 tab PO Q4H PRN (Reason: Breakthrough Pain) Qty: 12 RF: 0 prednisone 5 mg Tablet 5 mg PO DAILY Qty: 1 RF: 0 Levaquin 750 mg tablet 750 mg PO DAILY 5 Days Qty: 5 RF: 0 Lovenox 40 mg/0.4 mL Syringe 40 mg SUBCUT Q24H 28 Days Qty: 11.2 RF: 0 amlodipine 5 mg tablet 5 mg PO DAILY Qty: 30 RF: 0 Continued lovastatin 10 mg tablet 10 mg PO DAILY RF: 0 mupirocin 2 % ointment 1 applic TOPICAL BID Qty: 22 RF: 0 Wixela Inhub 250-50 mcg/dose blister with device 1 inh INHALATION BID RF: 0 albuterol sulfate 90 mcg/actuation HFA aerosol inhaler 2 puff INHALATION Q4H PRN (Reason: Shortness Of Breath) RF: 0 cholecalciferol (vitamin D3) [Vitamin D3] 10 mcg (400 unit) Capsule 10 mcg PO DAILY RF: 0 omega 1-oly-jdt-fish oil [Fish Oil] 1,000 mg (120 mg-180 mg) Capsule 2 cap PO DAILY RF: 0 Vitamin B-12 5,000 mcg/mL Drops 5,000 mcg SUBLINGUAL DAILY RF: 0 Held lisinopril 5 mg tablet 15 mg PO DAILY RF: 0 Hold Instructions: Resume on 04/28/20. Discontinued meloxicam 7.5 mg Tablet 15 mg PO DAILY RF: 0 Discharge Orders: Discharge Order (Routine); Ordered 04/21/20 Ordered By: Westley Shepard Referrals: Radhika Kaminski MD [Primary Care Provider] - 4-7 days (long-term will make all follow up appointments.) Carroll Gutierrez MD [Physician] - 1 week (Please call [facility] with a follow up appointment for [address] Gutiererz. Faxed information to clinic) Discharge Activity: Limit activity as instructed and As per PT/OT instructions Patient Instructions: Hydrocodone/Acetaminophen (By mouth), Prednisone (By mouth), Amlodipine (By mouth), Enoxaparin (Injection), Levofloxacin (By mouth), Sepsis (DC), Community-acquired Pneumonia (DC), Precautions after Total Joint Replacement Surgery (DC), Hypotension (DC) Activity Restrictions/Additional Instructions: Touchdown weightbearing on LLE. Fall precautions. Consider reevaluation for home oxygen once she is more ambulatory. At rest she has not been requiring any oxygen on evaluation. Please recheck hemoglobin in 3 days due to acute blood loss anemia. And BMP in 3 days to confirm improvement of acute kidney injury. Monitor blood pressure 3 times daily due to hypertension. Discharge Attestations Time Spent in Discharge Care*: greater than 30 min Quality Metrics Clinical Quality Measures During this hospital stay, did patient experience: None Coding Level of Care Code Acute Slot Floor Attendant for g Fwd Diagnoses Community acquired pneumonia J18.9 Femoral distal fracture S72.402A Encounter type: initial encounter Fracture morphology: unspecified fracture morphology Fracture type: closed Laterality: left Hypotension I95.9 Fall W19.XXXA Encounter type: initial encounter Sepsis A41.9
[2020-04-21] MEDS: sodium chloride 0.9% (100 ml) 100 ML 125 ML (17:23)
--- NOTE | 2020-04-24 16:18 | PC.SOCIAL ---
Received call from Dr Shepard indicating sputum shows yeast growing. If improving per Dr Shepard may not be significant however would like result sent to [facility] and nurse to discuss results with attending at that facility. Call placed to Brianda patient care nurse for Mrs. Chavarria and reviewed information. Brianda agrees to discuss with attending provider and provided fax number of [phone] to send results. Results faxed with confirmation that fax was sent successfully.
== END 2020-04-21 19:00 | disposition skilled nursing facility (03) | DRG 853 ==
LOC: ER 21:46 → MEDSURG 22:19
PROVIDERS: Emergency Medicine; Orthopaedic Surgery; Admitting Provider Internal Medicine; PCP Family Medicine; Visit Provider Internal Medicine
PROC: 0QSC04Z Reposition Left Lower Femur with Internal Fixation Device, Open Approach (ICD-10-PCS; principal; 2020-04-18 16:00)
DX: A41.9 Sepsis, unspecified organism (principal); J18.9 Pneumonia, unspecified organism; S72.452A Displaced supracondylar fracture without intracondylar extension of lower end of left femur, initial encounter for closed fracture; M97.12XA Periprosthetic fracture around internal prosthetic left knee joint, initial encounter; J44.1 Chronic obstructive pulmonary disease with (acute) exacerbation; J44.0 Chronic obstructive pulmonary disease with (acute) lower respiratory infection; N17.9 Acute kidney failure, unspecified; W01.0XXA Fall on same level from slipping, tripping and stumbling without subsequent striking against object, initial encounter; I25.10 Atherosclerotic heart disease of native coronary artery without angina pectoris; Z98.61 Coronary angioplasty status; K21.9 Gastro-esophageal reflux disease without esophagitis; Z96.652 Presence of left artificial knee joint; Z87.891 Personal history of nicotine dependence; I10 Essential (primary) hypertension; I95.9 Hypotension, unspecified; D64.9 Anemia, unspecified; Z79.51 Long term (current) use of inhaled steroids
CPT/HCPCS: 12345; 36415; 36430; 51702; 71045; 73560; 73562; 76000; 80048; 80053; 80500; 81001; 83605; 85018; 85025; 85610; 86403; 86850; 86870; 86900; 86902; 86920; 87040; 87070; 87106; 87205; 87449; 87635; 94640; 96372; 96375; 97110; 97162; 97166; 97530; 97535; 99282; C1713; J0690; J1170; J1580; J1650; J1956; J2270; J2370; J2405; J2704; J2710; J3010; J3490; J3535; J7030; J7512; J7799; P9016

== ENCOUNTER → 2020-05-22 15:02 | Outpatient (BNVA) | payer MEDICARE, SELFPAY | PROVIDERS: PCP Family Medicine; Visit Provider Orthopaedic Surgery | DX: Z47.89 Encounter for other orthopedic aftercare (principal); S72.402D Unspecified fracture of lower end of left femur, subsequent encounter for closed fracture with routine healing; W19.XXXD Unspecified fall, subsequent encounter | CPT/HCPCS: 73562 ==

== ENCOUNTER → 2020-06-19 13:36 | Outpatient (BNVA) | payer MEDICARE, SELFPAY | PROVIDERS: PCP Family Medicine; Visit Provider Orthopaedic Surgery | DX: Z48.89 Encounter for other specified surgical aftercare (principal); S72.402A Unspecified fracture of lower end of left femur, initial encounter for closed fracture; S72.492A Other fracture of lower end of left femur, initial encounter for closed fracture | CPT/HCPCS: 73562 ==

== ENCOUNTER → 2020-07-17 08:56 | Outpatient (BNVA) | payer MEDICARE, SELFPAY | PROVIDERS: PCP Family Medicine; Visit Provider Orthopaedic Surgery | DX: Z47.89 Encounter for other orthopedic aftercare (principal); S72.402D Unspecified fracture of lower end of left femur, subsequent encounter for closed fracture with routine healing; X58.XXXD Exposure to other specified factors, subsequent encounter | CPT/HCPCS: 73562 ==

== ENCOUNTER → 2020-08-14 08:37 | Outpatient (BNVA) | payer MEDICARE, SELFPAY | PROVIDERS: PCP Family Medicine; Visit Provider Orthopaedic Surgery | DX: Z47.1 Aftercare following joint replacement surgery (principal); S72.402D Unspecified fracture of lower end of left femur, subsequent encounter for closed fracture with routine healing; X58.XXXD Exposure to other specified factors, subsequent encounter; Z96.652 Presence of left artificial knee joint | CPT/HCPCS: 73560; 73565 ==

== ENCOUNTER → 2020-09-25 08:18 | Outpatient (BNVA) | payer MEDICARE, SELFPAY | PROVIDERS: PCP Family Medicine; Visit Provider Orthopaedic Surgery | DX: Z47.89 Encounter for other orthopedic aftercare (principal); S72.402D Unspecified fracture of lower end of left femur, subsequent encounter for closed fracture with routine healing; W19.XXXD Unspecified fall, subsequent encounter | CPT/HCPCS: 73560; 73565 ==

== ENCOUNTER → 2020-12-25 08:24 | Outpatient (BNVA) | payer MEDICARE, SELFPAY | PROVIDERS: PCP Family Medicine; Visit Provider Orthopaedic Surgery | DX: Z98.890 Other specified postprocedural states (principal); S72.402D Unspecified fracture of lower end of left femur, subsequent encounter for closed fracture with routine healing; W19.XXXD Unspecified fall, subsequent encounter; Z48.89 Encounter for other specified surgical aftercare | CPT/HCPCS: 73560; 73565 ==

== ENCOUNTER 2021-02-13 21:17 | Emergency (ER) | payer MEDICARE, SELFPAY ==
[2021-02-13 21:28] VITALS: BP 214/169; PULSE 111; RESP 17; TEMP 36.4; O2SAT 93; BMI 30.9
--- NOTE | 2021-02-13 21:42 | CTR_ITS ---
PROCEDURE INFORMATION: Exam: CT Head Without Contrast Exam date and time: 02/13/2021 9:42 PM Age: 75 years old Clinical indication: Altered mental status/memory loss; Patient HX: Hallucinations. ; Additional info: Halucinations TECHNIQUE: Imaging protocol: Computed tomography of the head without contrast. Radiation optimization: All CT scans at this facility use at least one of these dose optimization techniques: automated exposure control; mA and/or kV adjustment per patient size (includes targeted exams where dose is matched to clinical indication); or iterative reconstruction. ADDITIONAL STUDY INFORMATION: Total DLP (mGy-cm): 569.52 COMPARISON: No relevant prior studies available. FINDINGS: Examination is limited by artifacts from patient motion. There is [id number]-dvpqixgm low density in the bilateral periventricular white matter which may represent chronic small vessel ischemic disease in the appropriate clinical setting. The possibility of superimposed acute infarctions cannot be excluded; consider MRI brain (including diffusion images) for further assessment if clinically warranted and if patient has no contraindication to MRI. There are prominent intracranial arterial calcifications. There is moderate cerebral cortical volume loss. Ventricles do not appear significantly dilated. No definite depressed calvarial fracture is demonstrated. Visualized paranasal sinuses and mastoid air cells demonstrate no significant opacification. CT/CT head wo con* [id number] IMPRESSION: Examination is limited by artifacts from patient motion. Probable chronic ischemic changes as discussed above. Radiation Dose CTDIVOL = (mGy): DLP = 569.52 (mGy-cm)
--- NOTE | 2021-02-13 21:42 | ECG_ITS ---
[facility] Test Date: 2021-02-13 Pat Name: Keyona Chavarria Department: Room: Gender: Female Communication Clerk: : 1945 Requested By: Albert Laura Order Number: [id number] Gee MD: Tracee Sherman M.D. Measurements Intervals [place] Rate: 95 P: 79 SD: 152 QRS: -19 QRSD: 98 T: 76 QT: 332 QTc: 417 Interpretive Statements SINUS RHYTHM WITH SINUS ARRHYTHMIA SEPTAL MYOCARDIAL INFARCTION [40+ ms Q WAVE IN V1/V2], PROBABLY OLD Compared to ECG 02/17/2020 10:44:55 Myocardial infarct finding now present Electronically Signed On 02-15-2021 14:22:44 CDT by Tracee Sherman M.D. [id number] lisa
[2021-02-13 22:05] LABS: Basophils # 0.1 10^3/uL (0.0-0.1); Basophils % 0.6 %; Eosinophils # 0.2 10^3/uL (0.0-0.8); Eosinophils % 1.5 %; Hematocrit 49.9 % (37.0-47.0); Hemoglobin 16.2 g/dL (11.5-15.3); Lymphocytes # 4.3 10^3/uL (0.8-4.8); Lymphocytes % 36.5 %; Mean Corpuscular HGB Conc 32.5 g/dL (30.0-36.0); Mean Corpuscular Hemoglobin 28.8 pg (28.0-34.0); Mean Corpuscular Volume 88.8 fL (81-99); Mean Platelet Volume 8.5 fL (7.4-10.4); Monocytes # 0.8 10^3/uL (0.2-0.9); Monocytes % 7.2 %; Neutrophils % 53.9 %; Nucleated Red Blood Cells % 0 %; Platelet Count 339 10^3/cmm (130-400); Red Blood Count 5.62 10^6/uL (4.1-5.3); Red Cell Distribution Width 12.9 % (12.1-15.1); White Blood Count 11.7 10^3/uL (4.0-10.0)
--- NOTE | 2021-02-13 22:18 | ED_ITS ---
HPI - Psych General: Chief Complaint: Psychiatric Symptoms Stated Complaint: hallucinating, SI, Time Seen by Provider: 02/13/21 21:39 Source: patient and family Mode of arrival: ambulatory Limitations: no limitations History of Present Illness: HPI Narrative: 75-year-old female states she is actually been hearing voices over the last 2 years but has not informed any family until just recently. Family states that they had her today talking to these voices. She states the voices became more violent and been telling her to kill herself. They had to take a knife away from her at home. Patient is here cooperative. She denies a history of these hallucinations before last 2 years. Associated symptoms: Reports auditory hallucinations Review of Systems Const: Denies: fever(s), chills, body aches or change in appetite Eyes: Denies: blurry vision or eye discomfort ENMT: Denies: throat pain or dental pain Card: Denies: chest pain Resp: Denies: dyspnea GI: Denies: abdominal pain, nausea, vomiting or diarrhea : Denies: dysuria Musc: Denies: neck pain or back pain Skin/Breast: Denies: rash Neuro: Denies: headache(s) Psych: Reports: auditory hallucinations [place]/Lymph: Denies: easy bruising All/Imm: Denies: urticaria PFSH ED PFSH: Medical History (Updated 02/14/21 @ 03:13 by Albert Laura MD) Asthma 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 with reduced DLCO however total lung capacity is normal increased residual volume COPD (chronic obstructive pulmonary disease) Coronary disease GERD (gastroesophageal reflux disease) Osteoarthritis of left knee Sinus bradycardia Surgical History Coronary angioplasty status History of knee replacement procedure of left knee Status post left knee replacement Family History Brother CAD (coronary artery disease) Social History Smoking and tobacco status: former smoker Alcohol intake: never Housing: House Current gender identity: Female Physical Exam Const: COMMON NORMALS: no acute distress, patient oriented x3 and healthy appearing HENMT: COMMON NORMALS: normocephalic and atraumatic HEAD & SCALP: normocephalic and atraumatic Eye: COMMON NORMALS: Equal, round and reactive pupils present and EOMs intact bilaterally PUPIL: Yes Equal, round and reactive pupils present Neck/C-Spine: COMMON NORMALS: full ROM and supple Chest: COMMONS NORMALS: normal inspection of the chest and normal palpation of entire chest wall Resp: COMMON NORMALS: normal respiratory effort, No retractions, No use of accessory muscles and clear to auscultation bilaterally AUSCULTATION: clear to auscultation bilaterally Cardio: COMMON NORMALS: regular rate, regular rhythm and No murmurs present (Cardio) RATE: regular rate RHYTHM: regular rhythm GI: COMMON NORMALS: Normal to inspection, nondistended, normoactive bowel sounds present, Soft to palpation, non-tender and no masses PALPATION: Yes Soft to palpation Extremity: COMMON NORMALS: normal to inspection and full ROM Neuro: COMMON NORMALS: patient oriented x3, moves all extremities and no focal motor deficits Psych: COMMON NORMALS: mental status grossly normal, Normal thought process present and cooperative THOUGHT PROCESS: Normal thought process present THOUGHT CONTENT: Yes Hallucination(s) present Skin: COMMON NORMALS: no rashes or lesions noted and no wounds GENERAL SKIN EXAM: no rashes or lesions noted Course Vital Signs: Vital signs: Vital Signs Temperature 97.6 F 02/13/21 21:28 Pulse Rate 70 02/14/21 00:57 Respiratory Rate 18 02/14/21 00:57 Blood Pressure 169/97 02/14/21 00:57 Pulse Oximetry 94 02/14/21 00:57 MDM - Psych MDM Narrative: Medical decision making narrative: Keyona presents here with hallucinations along with some suicidal thoughts. Patient is medically cleared and accepted at [facility]. Will transfer there. Lab Data: Labs: Lab Results 02/13/21 02/13/21 02/13/21 Range/Units 21:45 21:45 21:55 WBC 11.7 H (4.0-10.0) 10^3/ uL RBC 5.62 H (4.1-5.3) 10^6/u L Hgb 16.2 H (11.5-15.3) g/dL Hct 49.9 H (37.0-47.0) % MCV 88.8 (81-99) fL MCH 28.8 (28.0-34.0) pg MCHC 32.5 (30.0-36.0) g/dL RDW 12.9 (12.1-15.1) % Plt Count 339 (130-400) 10^3/c mm MPV 8.5 (7.4-10.4) fL Neut % (Auto) 53.9 % Lymph % (Auto) 36.5 % Bell % (Auto) 7.2 % Eos % (Auto) 1.5 % Baso % (Auto) 0.6 % Neut # (Auto) 6.30 (1.8-7.7) 10^3/u L Lymph # (Auto) 4.3 (0.8-4.8) 10^3/u L Bell # (Auto) 0.8 (0.2-0.9) 10^3/u L Eos # (Auto) 0.2 (0.0-0.8) 10^3/u L Baso # (Auto) 0.1 (0.0-0.1) 10^3/u L Nucleated RBC % (a uto) 0 % Nucleated RBCs # 0.0 /100WBC Sodium (136-145) mmol/L Potassium (3.5-5.1) mmol/L Chloride (98-107) mmol/L Carbon Dioxide (22-29) mmol/L Anion Gap (5-19) BUN (8-23) mg/dL Creatinine (0.5-0.9) mg/dL GFR Calculation Glucose (65-115) mg/dL Calculated Osmolal ity (285-295) mOsm/k g Calcium (8.5-10.5) mg/dL Total Bilirubin (0.15-1.2) mg/dL AST (0-32) U/L ALT (0-33) U/L Alkaline Phosphata se (35-105) IU/L Total Protein (6.6-8.7) g/dL Albumin (3.5-5.2) g/dL Globulin (1.3-4.6) g/dL Urine Color Yellow (Yellow) Urine Appearance Sl hazy (CLEAR) Urine pH 5 (5-7) Ur Specific Gravit y 1.015 (1.005-1.030) Urine Protein 1+ H (Negative) Urine Glucose (UA) Norm (Normal) Urine Ketones Negative (Negative) Urine Blood 3+ H (Negative) Urine Nitrate Negative (Negative) Urine Bilirubin Neg (Negative) Urine Urobilinogen Norm (Negative) mg/dL Ur Leukocyte Isabel ase 2+ H (Negative) Urine RBC 0-4 H (0-2) /hpf Urine WBC 25-40 H (0-5) /hpf Ur Squamous Epith Cells 25-40 H (0-5) /hpf Amorphous Sediment Not Reportable Urine Bacteria 2+ H (NONE) /hpf Salicylates (3-10) mg/dL Urine Opiates Scre en Negative (Negative) ng/mL Acetaminophen (10-30) ug/mL Ur Barbiturates Sc reen Negative (Negative) ng/mL Ur Phencyclidine S crn Negative (Negative) ng/mL Ur Amphetamines Sc reen Negative (Negative) ng/mL U Benzodiazepines Scrn Negative (Negative) ng/mL Urine Cocaine Scre en Negative (Negative) ng/mL U Marijuana (THC) Screen Positive H (Negative) ng/mL Ethyl Alcohol (0-10) mg/dL SARS-CoV-2 Ag (Rap id) (Negative) 02/13/21 02/13/21 Range/Units 21:55 23:10 WBC (4.0-10.0) 10^3/ uL RBC (4.1-5.3) 10^6/u L Hgb (11.5-15.3) g/dL Hct (37.0-47.0) % MCV (81-99) fL MCH (28.0-34.0) pg MCHC (30.0-36.0) g/dL RDW (12.1-15.1) % Plt Count (130-400) 10^3/c mm MPV (7.4-10.4) fL Neut % (Auto) % Lymph % (Auto) % Bell % (Auto) % Eos % (Auto) % Baso % (Auto) % Neut # (Auto) (1.8-7.7) 10^3/u L Lymph # (Auto) (0.8-4.8) 10^3/u L Bell # (Auto) (0.2-0.9) 10^3/u L Eos # (Auto) (0.0-0.8) 10^3/u L Baso # (Auto) (0.0-0.1) 10^3/u L Nucleated RBC % (a uto) % Nucleated RBCs # /100WBC Sodium 138 (136-145) mmol/L Potassium 4.4 (3.5-5.1) mmol/L Chloride 103 (98-107) mmol/L Carbon Dioxide 21 L (22-29) mmol/L Anion Gap 18.4 (5-19) BUN 28 H (8-23) mg/dL Creatinine 1.2 H (0.5-0.9) mg/dL GFR Calculation Not Reportable Glucose 121 H (65-115) mg/dL Calculated Osmolal ity 293 (285-295) mOsm/k g Calcium 9.8 (8.5-10.5) mg/dL Total Bilirubin 0.3 (0.15-1.2) mg/dL AST 14 (0-32) U/L ALT 10 (0-33) U/L Alkaline Phosphata se 109 H (35-105) IU/L Total Protein 7.3 (6.6-8.7) g/dL Albumin 4.7 (3.5-5.2) g/dL Globulin 2.6 (1.3-4.6) g/dL Urine Color (Yellow) Urine Appearance (CLEAR) Urine pH (5-7) Ur Specific Gravit y (1.005-1.030) Urine Protein (Negative) Urine Glucose (UA) (Normal) Urine Ketones (Negative) Urine Blood (Negative) Urine Nitrate (Negative) Urine Bilirubin (Negative) Urine Urobilinogen (Negative) mg/dL Ur Leukocyte Isabel ase (Negative) Urine RBC (0-2) /hpf Urine WBC (0-5) /hpf Ur Squamous Epith Cells (0-5) /hpf Amorphous Sediment Urine Bacteria (NONE) /hpf Salicylates < 0.3 L (3-10) mg/dL Urine Opiates Scre en (Negative) ng/mL Acetaminophen < 5.0 L (10-30) ug/mL Ur Barbiturates Sc reen (Negative) ng/mL Ur Phencyclidine S crn (Negative) ng/mL Ur Amphetamines Sc reen (Negative) ng/mL U Benzodiazepines Scrn (Negative) ng/mL Urine Cocaine Scre en (Negative) ng/mL U Marijuana (THC) Screen (Negative) ng/mL Ethyl Alcohol < 10 (0-10) mg/dL SARS-CoV-2 Ag (Rap id) Negative (Negative) Imaging Data^: CXR: Attestation: I personally reviewed and interpreted this imaging study as follows: My impression: no acute abnormality EKG Data^: EKG 1: Attestation: I personally reviewed and interpreted this EKG as follows: EKG interpretation date: 02/13/21 EKG interpretation time: 22:13 Interpretation: nsr hr [address] or t wave abnormalities qrs 98 qtc 384 Discharge Plan Discharge Patient Disposition: Xfer Psychiatric Hosp Clinical Impression: Suicidal ideation Condition: Stable Referrals: Radhika Kaminski MD [Primary Care Provider] - Coding Level of Care Code ED Stitch Bonding Machine Operator for Chg Fwd Exam Comprehensive
[2021-02-13 22:25] LABS: Alanine Aminotransferase 10 U/L (0-33); Albumin Level 4.7 g/dL (3.5-5.2); Alkaline Phosphatase 109 IU/L (35-105); Anion Gap 18.4 (5-19); Aspartate Amino Transferase 14 U/L (0-32); Blood Urea Nitrogen 28 mg/dL (8-23); Calcium 9.8 mg/dL (8.5-10.5); Carbon Dioxide 21 mmol/L (22-29); Chloride 103 mmol/L (98-107); Globulin 2.6 g/dL (1.3-4.6); Glucose 121 mg/dL (65-115); Osmolality Calculated 293 mOsm/kg (285-295); Potassium 4.4 mmol/L (3.5-5.1); Sodium 138 mmol/L (136-145); Total Bilirubin 0.3 mg/dL (0.15-1.2); Total Protein 7.3 g/dL (6.6-8.7)
[2021-02-13 22:31] LABS: Amphetamines Screen Urine Negative (Negative); Barbiturates Screen Urine Negative (Negative); Benzodiazepines Screen Urine Negative (Negative); Cocaine Screen Urine Negative (Negative); Opiate Screen Urine Negative (Negative); PCP Screen Urine Negative (Negative); THC Screen Urine Positive (Negative)
[2021-02-13 22:34] LABS: Acetaminophen < 5.0 ug/mL (10-30); Alcohol Level < 10 mg/dL (0-10); Creatinine Clr Calc Pharmacy 41.2274; Salicylate < 0.3 mg/dL (3-10)
[2021-02-13 22:40] LABS: Add Urine Culture? No; Add Urine Microscopic? YES; Bacteria Urine 2+ /hpf; Bilirubin Urine Neg (Negative); Blood Urine 3+ (Negative); Glucose Urine UA Norm (Normal); Ketones Urine Negative (Negative); Leukocyte Esterase Urine 2+ (Negative); Nitrate Urine Negative (Negative); Protein Urine 1+ (Negative); RBC Urine 0-4 /hpf (0-2); Specific Gravity, Urine 1.015 (1.005-1.030); Squamous Epithelial Cell Urine 25-40 /hpf (0-5); Urine Appearance SL Hazy (CLEAR); Urine Color Yellow (Yellow); Urobilinogen Urine Norm (Negative); WBC Urine 25-40 /hpf (0-5); pH Urine 5 (5-7)
[2021-02-13 22:49] VITALS: BP 196/90
[2021-02-13] MEDS: labetalol 5 mg/mL SDV 20mL 10 MG IVP (23:10)
[2021-02-13 23:35] LABS: SARS Covid-2 Antigen Negative (Negative)
--- NOTE | 2021-02-14 00:21 | PC.NURSE ---
2130 Pt placed in paper scrubs; sitter outside room; room cleared of unsafe items. Pt calm and cooperative. Urine and blood specimens collected. Hypertensive; notified.
--- NOTE | 2021-02-14 00:56 | PC.NURSE ---
Assisted onto bedside toilet. Daughter left to go home for the night.
[2021-02-14 00:57] VITALS: BP 169/97; PULSE 70; RESP 18; O2SAT 94
[2021-02-14] MEDS: LORazepam 2 mg/mL INJ 1 mL 1 MG IVP (01:46)
--- NOTE | 2021-02-14 02:43 | PC.NURSE ---
Pt resting, eyes closed, easily awakened. Lights off for comfort; sitter outside room. Will continue to monitor.
--- NOTE | 2021-02-14 02:46 | XRR_ITS ---
PROCEDURE INFORMATION: Exam: XR Chest Exam date and time: 02/14/2021 2:46 AM Age: 75 years old Clinical indication: Abnormal findings; Abnormal diagnostic tests; Abnormal ekg; Patient HX: Elevated wbc. History of copd. Psych transfer. ; Additional info: Si TECHNIQUE: Imaging protocol: XR of the chest. Views: 1 view. COMPARISON: CR XR chest 1V portable [id number] 04/17/2020 9:39 PM FINDINGS: Lung volumes are somewhat low. Otherwise no focal pulmonary consolidation is demonstrated on this single frontal image. No significant obscuration of the lateral costophrenic angles is demonstrated. No significant vascular congestion is demonstrated. Visualized cardiac silhouette size appears mildly enlarged. Thoracic aorta is unfolded. XR/XR chest 1V portable [id number] IMPRESSION: No definite acute pulmonary process is demonstrated.
--- NOTE | 2021-02-14 04:07 | PC.NURSE ---
Accepted by Dr. Villalobos at [facility].
[2021-02-14 04:44] VITALS: BP 172/118; PULSE 72; RESP 16; O2SAT 95
[2021-02-14] MEDS: hyDRALAzine 20 mg/mL INJ 1 mL 10 MG IVP (04:48)
[2021-02-14 05:36] VITALS: BP 174/91; PULSE 74; RESP 16; O2SAT 95
[2021-02-14] MEDS: labetalol 5 mg/mL SDV 20mL 10 MG IVP (05:50)
--- NOTE | 2021-02-14 05:52 | PC.NURSE ---
Pt resting; no needs identified at this time. Sitter outside room. Will continue to monitor.
[2021-02-14 06:15] VITALS: BP 143/94
--- NOTE | 2021-02-14 06:56 | PC.NURSE ---
Called daughter Lorraine to advise that pt was transferred to [place] and gave her the contact number.
[2021-02-14 06:57] VITALS: BP 143/77; PULSE 70; RESP 18; O2SAT 95
== END 2021-02-14 06:58 ==
PROVIDERS: Emergency Provider Emergency Medicine; PCP Family Medicine
DX: R45.851 Suicidal ideations (principal); J44.9 Chronic obstructive pulmonary disease, unspecified; I25.10 Atherosclerotic heart disease of native coronary artery without angina pectoris; Z98.61 Coronary angioplasty status; Z87.891 Personal history of nicotine dependence; R44.0 Auditory hallucinations
CPT/HCPCS: 70450; 71045; 80053; 80306; 80307; 81001; 85025; 87426; 93005; 96374; 96375; 96376; 99284; J0360; J2060; J3490

== ENCOUNTER 2021-02-17 19:59 | Inpatient (IN) | payer MEDICARE, SELFPAY ==
[2021-02-17 20:45] VITALS: BP 201/148; PULSE 90; RESP 18; TEMP 36.7; O2SAT 97; BMI 36.6
[2021-02-17 21:35] LABS: Basophils # 0.1 10^3/uL (0.0-0.1); Basophils % 0.6 %; Eosinophils # 0.2 10^3/uL (0.0-0.8); Eosinophils % 1.4 %; Hematocrit 45.5 % (37.0-47.0); Hemoglobin 14.9 g/dL (11.5-15.3); Lymphocytes # 3.2 10^3/uL (0.8-4.8); Mean Corpuscular HGB Conc 32.7 g/dL (30.0-36.0); Mean Corpuscular Volume 88.5 fL (81-99); Monocytes % 8.4 %; Neutrophils # 7.37 10^3/uL (1.8-7.7); Neutrophils % 62.3 %; Nucleated Red Blood Cells % 0 %; Platelet Count 308 10^3/cmm (130-400); Red Blood Count 5.14 10^6/uL (4.1-5.3); Red Cell Distribution Width 13.2 % (12.1-15.1); White Blood Count 11.8 10^3/uL (4.0-10.0)
[2021-02-17 21:47] LABS: Alanine Aminotransferase 10 U/L (0-33); Alkaline Phosphatase 97 IU/L (35-105); Anion Gap 14.7 (5-19); Aspartate Amino Transferase 14 U/L (0-32); Blood Urea Nitrogen 28 mg/dL (8-23); Calcium 9.2 mg/dL (8.5-10.5); Carbon Dioxide 22 mmol/L (22-29); Chloride 106 mmol/L (98-107); Globulin 2.4 g/dL (1.3-4.6); Glucose 120 mg/dL (65-115); Osmolality Calculated 293 mOsm/kg (285-295); Potassium 4.7 mmol/L (3.5-5.1); Sodium 138 mmol/L (136-145); Total Bilirubin 0.2 mg/dL (0.15-1.2); Total Protein 6.4 g/dL (6.6-8.7)
[2021-02-17 21:48] LABS: Acetaminophen < 5.0 ug/mL (10-30); Alcohol Level < 10 mg/dL (0-10); Salicylate < 0.3 mg/dL (3-10)
[2021-02-17 22:00] LABS: Amphetamines Screen Urine Negative (Negative); Barbiturates Screen Urine Negative (Negative); Benzodiazepines Screen Urine Negative (Negative); Cocaine Screen Urine Negative (Negative); Opiate Screen Urine Negative (Negative); PCP Screen Urine Negative (Negative); THC Screen Urine Positive (Negative)
[2021-02-17 22:14] VITALS: BP 172/96; PULSE 80; RESP 16; O2SAT 99
[2021-02-17 22:17] LABS: Blood Urine Neg (Negative); Glucose Urine UA Norm (Normal); Ketones Urine Negative (Negative); Protein Urine Neg (Negative); Specific Gravity, Urine 1.015 (1.005-1.030); Urine Appearance Clear (CLEAR); Urine Color Yellow (Yellow); pH Urine 5 (5-7)
[2021-02-17 22:18] LABS: Add Urine Microscopic? YES; Bilirubin Urine Neg (Negative); Leukocyte Esterase Urine 1+ (Negative); Nitrate Urine Negative (Negative); Urobilinogen Urine 1 mg/dL (Negative)
[2021-02-17 22:27] LABS: Add Urine Culture? No; Bacteria Urine 1+ /hpf; RBC Urine 0-4 /hpf (0-2); Squamous Epithelial Cell Urine 25-40 /hpf (0-5)
[2021-02-17] MEDS: cefdinir 300 MG CAPSULE PO (23:13)
[2021-02-17 23:20] VITALS: BP 244/144; PULSE 95; RESP 18; O2SAT 96
[2021-02-17 23:30] LABS: SARS Covid-2 Antigen Negative (Negative)
[2021-02-18] VITALS (103 sets, daily range): BP systolic 97–218; BP diastolic 53–132; PULSE 65–100; RESP 13–35; TEMP 36.4–37; O2SAT 87–97
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
--- NOTE | 2021-02-18 03:18 | ECG_ITS ---
[facility] Test Date: 2021-02-18 Pat Name: Keyona Chavarria Department: Room: Gender: Female Buffer Copper: : [id number] Requested By: Joe Aceves Order Number: [id number] Gee MD: Jarod José M.D. Measurements Intervals [place] Rate: 92 P: 69 ME: 158 QRS: -21 QRSD: 85 T: 60 QT: 342 QTc: 423 Interpretive Statements SINUS RHYTHM SEPTAL MYOCARDIAL INFARCTION [40+ ms Q WAVE IN V1/V2], PROBABLY OLD INTERPRETATION BASED ON A DEFAULT AGE OF 40 YEARS Compared to ECG 02/13/2021 22:13:54 Sinus arrhythmia no longer present Myocardial infarct finding still present Electronically Signed On 02-18-2021 21:15:54 CDT by Jarod José M.D. [email or web address]
[2021-02-18] MEDS: LORazepam 1 mg Tablet PO (03:56)
[2021-02-18] MEDS: amlodipine 10 mg Tablet PO (04:25)
[2021-02-18] MEDS: cloNIDine 0.1 mg Tablet 0.2 MG PO (05:28)
[2021-02-18] MEDS: nitroglycerin 1 gm/inch oint Pkt 2 INCH TOPICAL (07:31)
[2021-02-18] MEDS: labetalol 5 mg/mL SDV 20mL 20 MG IVP (07:37)
[2021-02-18] MEDS: enalaprilat 1.25 mg/mL Inj IVP (07:37)
[2021-02-18 08:34] LABS: Thyroid Stimulating Hormone 0.63 uIU/mL (0.27-4.20)
[2021-02-18 08:37] LABS: Estmated Average Glucose 105; Hemoglobin A1C 5.3 % (4.0-6.0)
--- NOTE | 2021-02-18 08:38 | PC.NURSE ---
Sitter at doorway . No acute distress or changes
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
[2021-02-18] MEDS: haloperidol inj 5 mg/mL INJ 1 mL 3 MG IVP (08:56)
[2021-02-18 09:46] LABS: Troponin T (5th) Once 21 ng/L (0-10)
[2021-02-18 10:19] LABS: Vitamin B12 > 2000 pg/mL (232-1245)
[2021-02-18] MEDS: aspirin 81 mg EC Tablet PO (10:20)
[2021-02-18] MEDS: metoprolol tartrate 25 mg Tablet 12.5 MG PO ×2 (10:20→20:17)
[2021-02-18] MEDS: atorvastatin 40 mg Tablet 20 MG PO (10:20)
[2021-02-18] MEDS: enoxaparin 40 mg/0.4 mL Syringe SUBCUT (10:21)
[2021-02-18 12:32] LABS: Troponin T (5th) Once 27 ng/L (0-10)
--- NOTE | 2021-02-18 12:40 | PC.CHAP ---
Pastoral Care Encounter/Spiritual Assessment Type of Contact [] Declined cage supervisor visit [] Patient/Family/Request visit [] Outpatient visit [x] Follow-up visit [] Physician referral [] Code/Alert [] Routine visit [] Staff referral [] Actively dying [x] Patient sleeping [] Family support [] [] Out of room [] Palliative care [] [] Receiving care in room [] Pre-surgical visit [] Trauma [] Long length of stay [] ICU visit [] Other: Relational/Emotional Strength [] Patient feels connected with others/family/visitors/staff [] Distress [] Loneliness/isolation [] Abandonment Spirituality of Patient [] Person of Mago [] Attends Uatsdin of their Mago [] Believes in Prayer [] Reads Bible or Baptist materials [] There are Spiritual issues to be addressed Res Counselor Interventions [] Prayer [] Active listening [] Non-anxious presence [] Spiritual/emotional support [] Crisis/trauma care [] Spiritual counseling [] Bereavement support [] Provided bereavement packet [] Provided Bible/devotional materials [] Provided toy/stuffed animal, coloring book to patient or family member [] Provided Communion [] Anointing/[place] [] Salvation [] Completed spiritual assessment [] Other: Impact on Illness or Injury [] Angry [] Fearful [] Anxious [] Often cries [] Exhaustion [] Unable to work [] Unable to attend advent [] Unable to walk/stand [] Unable to read [] Unable to drive [] Unable to eat/drink [] Unable to sleep [] Unable to be with family [] Patient intubated [] Other: Summary Time spent with patient
[2021-02-18] MEDS: hyDRALAzine 20 mg/mL INJ 1 mL 10 MG IVP ×2 (19:07→22:38)
--- NOTE | 2021-02-18 19:10 | PC.NURSE ---
Blood pressure 191/106 at this time PRN hydralzine IVP given at this time
--- NOTE | 2021-02-18 22:22 | PC.NURSE ---
High BP Notified Dr. Medina about patient high blood pressure of 179/104, after receiving scheduled dose of 2100 Metoprolol 12.5 mg PO. Patient also has PRN Hydralazine 10 mg IVP ordered Q4 and received a dose at 1907. Dr. Medina put in orders to administer another 10 mg Hydralazine IVP one time.
[2021-02-19] VITALS (131 sets, daily range): BP systolic 86–155; BP diastolic 52–86; PULSE 58–109; RESP 16–33; TEMP 35.9–37.6; O2SAT 89–98; BMI 33.1
[2021-02-19 05:22] LABS: Basophils # 0.1 10^3/uL (0.0-0.1); Basophils % 0.7 %; Eosinophils # 0.2 10^3/uL (0.0-0.8); Eosinophils % 1.8 %; Hematocrit 46.1 % (37.0-47.0); Hemoglobin 14.7 g/dL (11.5-15.3); Lymphocytes # 3.7 10^3/uL (0.8-4.8); Lymphocytes % 35.1 %; Mean Corpuscular HGB Conc 31.9 g/dL (30.0-36.0); Mean Corpuscular Hemoglobin 28.8 pg (28.0-34.0); Mean Corpuscular Volume 90.2 fL (81-99); Mean Platelet Volume 8.7 fL (7.4-10.4); Monocytes # 0.9 10^3/uL (0.2-0.9); Monocytes % 8.7 %; Neutrophils # 5.63 10^3/uL (1.8-7.7); Neutrophils % 53.4 %; Nucleated Red Blood Cells % 0 %; Platelet Count 306 10^3/cmm (130-400); Red Blood Count 5.11 10^6/uL (4.1-5.3); Red Cell Distribution Width 13.3 % (12.1-15.1); White Blood Count 10.5 10^3/uL (4.0-10.0)
[2021-02-19 05:39] LABS: Alanine Aminotransferase 8 U/L (0-33); Albumin Level 3.7 g/dL (3.5-5.2); Alkaline Phosphatase 73 IU/L (35-105); Anion Gap 15.7 (5-19); Aspartate Amino Transferase 13 U/L (0-32); Blood Urea Nitrogen 21 mg/dL (8-23); Carbon Dioxide 24 mmol/L (22-29); Chloride 105 mmol/L (98-107); Globulin 2.4 g/dL (1.3-4.6); Glucose 106 mg/dL (65-115); Osmolality Calculated 293 mOsm/kg (285-295); Potassium 4.7 mmol/L (3.5-5.1); Sodium 140 mmol/L (136-145); Total Bilirubin 0.5 mg/dL (0.15-1.2); Total Protein 6.1 g/dL (6.6-8.7)
--- NOTE | 2021-02-19 05:55 | PC.NURSE ---
Shift Summary Patient noted to have high blood pressure at the beginning of the night, notified Dr. Medina and received a one time order for an additional dose of Hydralazine 10 mg IVP. After administering the 10 mg IVP of Hydralazine the patients blood pressure was normotensive the rest of the night. Patient rested throughout the evening and only had one complaint of a headache, which Dr. Medina was notified about but no orders were received for PRN pain medication. Patient has a 20 gauge IV to the right forearm that is saline locked. She is alert and oriented x4. Patient showed no signs of aggression and made no threats to the staff throughout the night. Patient noted to mumble underneath breath and look to the side occasionally which looks like she is talking to someone, although there is no one there. Patient had 2 small brown bowel movements and 3 voids all evening.
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
--- NOTE | 2021-02-19 08:04 | PC.NURSE ---
recd. sleeping. awakened easily. oriented to person, place, date, president.. dr. saenz in.
[2021-02-19] MEDS: acetaminophen 325 mg Tablet 650 MG PO (08:08)
[2021-02-19] MEDS: atorvastatin 40 mg Tablet 20 MG PO (09:00)
[2021-02-19] MEDS: aspirin 81 mg EC Tablet PO (09:07)
[2021-02-19] MEDS: amlodipine 10 mg Tablet PO (09:08)
[2021-02-19] MEDS: enoxaparin 40 mg/0.4 mL Syringe SUBCUT (09:08)
[2021-02-19] MEDS: lisinopril 20 mg Tablet PO (09:08)
--- NOTE | 2021-02-19 09:24 | PC.CHAP ---
Pastoral Care Encounter/Spiritual Assessment Type of Contact [] Declined band presser visit [] Patient/Family/Request visit [] Outpatient visit [] Follow-up visit [] Physician referral [] Code/Alert [x] Routine visit [] Staff referral [] Actively dying [x] Patient sleeping [] Family support [] [] Out of room [] Palliative care [] [] Receiving care in room [] Pre-surgical visit [] Trauma [] Long length of stay [x] ICU visit [] Other: Relational/Emotional Strength [] Patient feels connected with others/family/visitors/staff [] Distress [] Loneliness/isolation [] Abandonment Spirituality of Patient [] Person of Mago [] Attends Oriental Orthodox of their Mago [] Believes in Prayer [] Reads Bible or Zoroastrianism materials [] There are Spiritual issues to be addressed Game Programmer Interventions [x] Prayer [] Active listening [] Non-anxious presence [] Spiritual/emotional support [] Crisis/trauma care [] Spiritual counseling [] Bereavement support [] Provided bereavement packet [] Provided Bible/devotional materials [] Provided toy/stuffed animal, coloring book to patient or family member [] Provided Communion [] Anointing/[place] [] Salvation [x] Completed spiritual assessment [] Other: Impact on Illness or Injury [] Angry [] Fearful [] Anxious [] Often cries [] Exhaustion [] Unable to work [] Unable to attend baptism [] Unable to walk/stand [] Unable to read [] Unable to drive [] Unable to eat/drink [] Unable to sleep [] Unable to be with family [] Patient intubated [] Other: Summary Time spent with patient
--- NOTE | 2021-02-19 09:24 | PC.NURSE ---
dr. blackmon in.
[2021-02-19] MEDS: metoprolol tartrate 25 mg Tablet 12.5 MG PO (11:20)
--- NOTE | 2021-02-19 13:13 | PM.TDS ---
Transfer Summary Providers Date of Admission: 02/18/21 09:23 Date of Discharge: 02/19/21 Attending Provider at Admission: Jairo Altamirano MD Attending Provider at Transfer: Jairo Altamirano MD Primary Care Provider: Radhika Kaminski MD Anticipated Date of Transfer: Anticipated date of transfer: 02/19/21 Receiving Facility & Provider: Receiving Provider: [] Receiving facility: [] Diagnoses at Discharge Discharge Diagnosis (1) Hyperglycemia: Status: Acute (2) Confusion: Status: Acute (3) Suicidal ideation: Status: Acute (4) Acute psychosis: Status: Acute (5) Homicidal ideation: Status: Acute (6) Hypertensive crisis, unspecified: Status: Acute (7) Postoperative state: Status: Acute (8) Community acquired pneumonia: Status: Acute (9) Fall: Status: Acute Qualifiers: Encounter type: initial encounter Qualified Code(s): W19.XXXA - Unspecified fall, initial encounter (10) Femoral distal fracture: Status: Acute Qualifiers: Encounter type: initial encounter Fracture morphology: unspecified fracture morphology Fracture type: closed Laterality: left Qualified Code(s): S72.402A - Unspecified fracture of lower end of left femur, initial encounter for closed fracture Reason for Visit Reason for Visit: [facility] Hospital Course Hospital Course Keyona is a 75-year-old white female who presented to the emergency department with confusion, homicidal ideation, and concern of auditory hallucinations. A 96-hour hold was placed in the emergency department. She received some Haldol for agitation. As blood pressure was markedly elevated, she was admitted to the medical service. She received quite a bit of blood pressure medication in the emergency department. While in the hospital I adjusted her Norvasc, lisinopril and added metoprolol and aspirin secondary to her past history of coronary disease. She did not have any significant concerning trend of her troponin. Psychiatric consultation was obtained. They believed to geriatric psychiatric evaluation was in order. As she was medically stable, transfer to [facility] was arranged on February 19. Accepting physician Dr. Carter. Head CT and chest x-ray without any acute changes. TSH normal. B12 not low. No evidence of UTI. Physical Exam Narrative: EXAM NARRATIVE: General exam no apparent distress Cardiovascular regular in rhythm without murmur Lungs clear Abdomen is soft with positive bowel sounds Extremities no cyanosis clubbing or edema Neuro no obvious focal deficits. TS Data Data Completed and Pending: Labs from last 24 hours 02/19/21 02/19/21 05:00 05:00 WBC 10.5 H RBC 5.11 Hgb 14.7 Hct 46.1 MCV 90.2 MCH 28.8 MCHC 31.9 RDW 13.3 Plt Count 306 MPV 8.7 Neut % (Auto) 53.4 Lymph % (Auto) 35.1 [place] % (Auto) 8.7 Eos % (Auto) 1.8 Baso % (Auto) 0.7 Neut # (Auto) 5.63 Lymph # (Auto) 3.7 [place] # (Auto) 0.9 Eos # (Auto) 0.2 Baso # (Auto) 0.1 Nucleated RBC % (a uto) 0 Nucleated RBCs # 0.0 Sodium 140 Potassium 4.7 Chloride 105 Carbon Dioxide 24 Anion Gap 15.7 BUN 21 Creatinine 1.1 H GFR Calculation Not Reportable Glucose 106 Calculated Osmolal ity 293 Calcium 9.0 Total Bilirubin 0.5 AST 13 ALT 8 Alkaline Phosphata se 73 Total Protein 6.1 L Albumin 3.7 Globulin 2.4 Vitals: Last Vital Signs Temp 97.8 F 02/19/21 11:00 Pulse 83 02/19/21 11:45 Resp 20 H 02/19/21 11:45 BP 155/81 02/19/21 11:30 Pulse Ox 92 02/19/21 11:45 TS Medications Medications Home Medications lisinopril 5 mg tablet 10 mg PO DAILY tab 02/07/20 [History Confirmed 02/18/21] lovastatin 10 mg tablet 20 mg PO DAILY 02/07/20 [History Confirmed 02/18/21] Vitamin B-12 5,000 mcg SUBLINGUAL DAILY 02/17/20 [History Confirmed 02/18/21] cholecalciferol (vitamin D3) [Vitamin D3] 10 mcg PO DAILY 02/17/20 [History Confirmed 02/18/21] omega 5-sia-bys-fish oil [Fish Oil] 2 cap PO DAILY 02/17/20 [History Confirmed 02/18/21] albuterol sulfate 2 puff INHALATION Q4H PRN 04/17/20 [History Confirmed 02/18/21] fluticasone propion-salmeterol [Wixela Inhub] 1 inh INHALATION BID 08/25/20 [History Confirmed 02/18/21] amlodipine 5 mg PO DAILY #30 tab 04/21/20 [Rx Confirmed 02/18/21] meloxicam 15 mg PO DAILY 02/18/21 [History Confirmed 02/18/21] Active Medications Acetaminophen (Acetaminophen 325 Mg Tablet) 650 mg PO Q4H PRN PRN Reason: MILD PAIN OR INCREASE TEMP Last Admin: 02/19/21 08:08 Dose: 650 mg Documented by: Albuterol/Ipratropium (Ipratropium-Albuterol 3 Ml Neb) 3 ml INHALATION Q6H PRN PRN Reason: SHORTNESS OF BREATH Amlodipine Besylate (Amlodipine 10 Mg Tablet) 10 mg PO DAILY [facility] Last Admin: 02/19/21 09:08 Dose: 10 mg Documented by: Aspirin (Aspirin 81 Mg Ec Tablet) 81 mg PO DAILY [facility] Last Admin: 02/19/21 09:07 Dose: 81 mg Documented by: Atorvastatin Calcium (Atorvastatin 40 Mg Tablet) 20 mg PO DAILY [facility] Last Admin: 02/19/21 09:00 Dose: 20 mg Documented by: Enoxaparin Sodium (Enoxaparin 40 Mg/0.4 Ml Syringe) 40 mg SUBCUT Q24H [facility] Last Admin: 02/19/21 09:08 Dose: 40 mg Documented by: Hydralazine HCl (Hydralazine 20 Mg/Ml Inj 1 Ml) 10 mg IVP Q4H PRN PRN Reason: HYPERTENSION Last Admin: 02/18/21 19:07 Dose: 10 mg Documented by: Lisinopril (Lisinopril 20 Mg Tablet) 20 mg PO DAILY [facility] Last Admin: 02/19/21 09:08 Dose: 20 mg Documented by: Metoprolol Tartrate (Metoprolol Tartrate 25 Mg Tablet) 12.5 mg PO BID@0900,2100 [facility] Last Admin: 02/19/21 11:20 Dose: 12.5 mg Documented by: Ondansetron HCl (Ondansetron 2 Mg/Ml Sdv 2 Ml) 4 mg IVP Q6H PRN PRN Reason: NAUSEA AND VOMITING Fluticasone/Salmeterol (Fluticasone-Salmeterol 250-50 Diskus) 1 puff INHALATION BID.RESPIRATORY [facility] Last Admin: 02/19/21 10:20 Dose: 1 inhalation Documented by: Discharge Plan Discharge Patient Disposition: Xfer Psychiatric Hosp Condition: Stable Prescriptions: New metoprolol tartrate 25 mg Tablet 12.5 mg PO BID@0900,2100 Qty: 30 RF: 0 aspirin 81 mg Tablet,Delayed Release (Dr/Ec) 81 mg PO DAILY Qty: 30 RF: 0 Continued lovastatin 10 mg tablet 20 mg PO DAILY RF: 0 fluticasone propion-salmeterol [Wixela Inhub] 250-50 mcg/dose blister with device 1 inh INHALATION BID RF: 0 albuterol sulfate 90 mcg/actuation HFA aerosol inhaler 2 puff INHALATION Q4H PRN (Reason: Shortness Of Breath) RF: 0 meloxicam 7.5 mg tablet 15 mg PO DAILY RF: 0 cholecalciferol (vitamin D3) [Vitamin D3] 10 mcg (400 unit) Capsule 10 mcg PO DAILY RF: 0 omega 7-tza-ndf-fish oil [Fish Oil] 1,000 mg (120 mg-180 mg) Capsule 2 cap PO DAILY RF: 0 Vitamin B-12 5,000 mcg/mL Drops 5,000 mcg SUBLINGUAL DAILY RF: 0 Changed lisinopril 5 mg tablet 20 mg PO DAILY Qty: 0 RF: 0 amlodipine 5 mg tablet 10 mg PO DAILY Qty: 30 RF: 0 Discharge Orders: Transfer Out of Facility (Order); Ordered 02/19/21 Ordered By: Jairo Altamirano Referrals: Radhika Kaminski MD [Primary Care Provider] - Discharge Diet: Cardiac Discharge Activity: Increase activity as tolerated Transfer Attestations Time Spent in Transfer Care*: greater than 30 min Quality Metrics Clinical Quality Measures: During this hospital stay, did patient experience: None Coding Level of Care Code Acute Sales Enablement Consultant for Chg Fwd Diagnoses Hyperglycemia R73.9 Confusion R41.0 Suicidal ideation R45.851 Acute psychosis F23 Homicidal ideation R45.850 Hypertensive crisis, unspecified I16.9 Postoperative state Z98.890 Community acquired pneumonia J18.9 Fall W19.XXXA Encounter type: initial encounter Femoral distal fracture S72.402A Encounter type: initial encounter Fracture morphology: unspecified fracture morphology Fracture type: closed Laterality: left
--- NOTE | 2021-02-19 13:55 | PC.NURSE ---
transferred to 259/1 per w/c. c/o vertigo when she lay back in bed. upstairs.
--- NOTE | 2021-02-22 09:57 | PC.RESP ---
PULMONARY REHAB INFORMATION SENT TO PATIENT.
== END 2021-02-19 18:30 | DRG 304 ==
LOC: ER 02-18 08:14 → ICU 02-19 06:16 → MEDSURG 02-19 13:43
PROVIDERS: Physician Assistant; Admitting Provider Internal Medicine; Emergency Provider Emergency Medicine; PCP Family Medicine; Visit Provider Internal Medicine
DX: I16.9 Hypertensive crisis, unspecified (principal); J18.9 Pneumonia, unspecified organism; F23 Brief psychotic disorder; J44.0 Chronic obstructive pulmonary disease with (acute) lower respiratory infection; I10 Essential (primary) hypertension; I25.10 Atherosclerotic heart disease of native coronary artery without angina pectoris; Z98.61 Coronary angioplasty status; K21.9 Gastro-esophageal reflux disease without esophagitis; Z96.652 Presence of left artificial knee joint; Z87.891 Personal history of nicotine dependence; R45.850 Homicidal ideations; R73.9 Hyperglycemia, unspecified; E78.5 Hyperlipidemia, unspecified; Z81.8 Family history of other mental and behavioral disorders; S72.409D Unspecified fracture of lower end of unspecified femur, subsequent encounter for closed fracture with routine healing; W19.XXXD Unspecified fall, subsequent encounter; Z79.82 Long term (current) use of aspirin; Z79.51 Long term (current) use of inhaled steroids
CPT/HCPCS: 36415; 80053; 80306; 80307; 81001; 82607; 83036; 84443; 84484; 85025; 87426; 93005; 94640; 96365; 96372; 96375; 99285; 99291; 99292; J0360; J1630; J1650; J3490

== ENCOUNTER 2021-03-14 06:39 | Emergency (ER) | payer MEDICARE, SELFPAY ==
[2021-03-14 06:46] VITALS: BP 132/73; PULSE 73; RESP 16; TEMP 36.8; O2SAT 97; BMI 39.9
[2021-03-14 06:59] VITALS: BP 140/77; PULSE 65; RESP 18; O2SAT 97
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
[2021-03-14 07:38] LABS: Basophils # 0.1 10^3/uL (0.0-0.1); Basophils % 0.6 %; Eosinophils # 0.5 10^3/uL (0.0-0.8); Eosinophils % 4.8 %; Hematocrit 47.9 % (37.0-47.0); Hemoglobin 15.6 g/dL (11.5-15.3); Lymphocytes # 3.5 10^3/uL (0.8-4.8); Lymphocytes % 34.5 %; Mean Corpuscular HGB Conc 32.6 g/dL (30.0-36.0); Mean Corpuscular Hemoglobin 29.2 pg (28.0-34.0); Mean Corpuscular Volume 89.7 fL (81-99); Mean Platelet Volume 8.7 fL (7.4-10.4); Monocytes # 0.7 10^3/uL (0.2-0.9); Monocytes % 7.1 %; Neutrophils # 5.29 10^3/uL (1.8-7.7); Neutrophils % 52.7 %; Nucleated Red Blood Cells % 0 %; Platelet Count 292 10^3/cmm (130-400); Red Blood Count 5.34 10^6/uL (4.1-5.3); Red Cell Distribution Width 13.4 % (12.1-15.1)
[2021-03-14 07:55] LABS: Alanine Aminotransferase 10 U/L (0-33); Albumin Level 4.2 g/dL (3.5-5.2); Alkaline Phosphatase 74 IU/L (35-105); Anion Gap 19.1 (5-19); Aspartate Amino Transferase 12 U/L (0-32); Blood Urea Nitrogen 36 mg/dL (8-23); Calcium 9.3 mg/dL (8.5-10.5); Carbon Dioxide 20 mmol/L (22-29); Chloride 104 mmol/L (98-107); Globulin 2.7 g/dL (1.3-4.6); Glucose 104 mg/dL (65-115); Osmolality Calculated 295 mOsm/kg (285-295); Potassium 5.1 mmol/L (3.5-5.1); Sodium 138 mmol/L (136-145); Total Bilirubin 0.4 mg/dL (0.15-1.2); Total Protein 6.9 g/dL (6.6-8.7)
[2021-03-14 07:56] LABS: Bilirubin Urine Neg (Negative); Blood Urine Neg (Negative); Glucose Urine UA Norm (Normal); Ketones Urine Negative (Negative); Nitrate Urine Negative (Negative); Protein Urine Neg (Negative); Urine Appearance SL Hazy (CLEAR); Urine Color Yellow (Yellow); pH Urine 5 (5-7)
[2021-03-14 07:57] LABS: Add Urine Microscopic? YES; Leukocyte Esterase Urine 1+ (Negative); Urobilinogen Urine Norm (Negative)
[2021-03-14 08:01] LABS: Add Urine Culture? No; Bacteria Urine 1+ /hpf; Squamous Epithelial Cell Urine 25-40 /hpf (0-5)
[2021-03-14 08:03] LABS: Acetaminophen < 5.0 ug/mL (10-30); Alcohol Level < 10 mg/dL (0-10); Salicylate < 0.3 mg/dL (3-10)
[2021-03-14 08:40] VITALS: BP 155/95; PULSE 60; RESP 18; O2SAT 97
--- NOTE | 2021-03-14 09:20 | PC.NURSE ---
NO signs of delusional episodes, or stress States I feel great
[2021-03-14 10:00] VITALS: BP 137/83; PULSE 59; RESP 19; O2SAT 98
[2021-03-14 11:00] VITALS: BP 169/79; PULSE 88; RESP 19; O2SAT 97
== END 2021-03-14 12:17 | disposition home or self-care (01) ==
PROVIDERS: Emergency Provider Family Medicine; PCP Family Medicine
DX: F32.9 Major depressive disorder, single episode, unspecified (principal); F41.9 Anxiety disorder, unspecified; J44.9 Chronic obstructive pulmonary disease, unspecified; I25.10 Atherosclerotic heart disease of native coronary artery without angina pectoris; Z87.891 Personal history of nicotine dependence
CPT/HCPCS: 36415; 80053; 80307; 81001; 85025; 99283

== ENCOUNTER → 2021-05-07 13:20 | Outpatient (BNVA) | payer MEDICARE, SELFPAY | PROVIDERS: PCP Family Medicine; Visit Provider Psychiatry & Neurology Psychiatry | DX: F32.9 Major depressive disorder, single episode, unspecified (principal); R41.89 Other symptoms and signs involving cognitive functions and awareness | CPT/HCPCS: 90792 ==

== ENCOUNTER 2021-06-07 10:21 | Outpatient (CLI) | payer MEDICARE, SELFPAY ==
--- NOTE | 2021-06-07 10:28 | MM_ITS ---
WS: [id number] BILATERAL DIGITAL SCREENING MAMMOGRAPHY WITH CAD CLINICAL INFORMATION: SCREENING HISTORY: Screening mammogram. No current complaints. COMPARISON: February 09, 2020 TECHNIQUE: Bilateral CC and MLO views. FINDINGS: Scattered fibroglandular densities bilaterally. A few benign punctate calcifications. Vascular calcif ication. No suspicious focal mass, asymmetry, calcifications, or architectural distortion. No evidenc e of malignancy. MM/[id number] IMPRESSION: BI-RADS: 2-Benign FOLLOW UP: 1 Year Follow-up Recommend return to annual screening mammography.
== END 2021-06-07 10:22 | disposition home or self-care (01) ==
PROVIDERS: PCP Family Medicine; Visit Provider Family Medicine
DX: Z12.31 Encounter for screening mammogram for malignant neoplasm of breast (principal)
CPT/HCPCS: 77067

== ENCOUNTER → 2021-06-25 14:47 | Outpatient (BNVA) | payer MEDICARE, SELFPAY | PROVIDERS: PCP Family Medicine; Visit Provider Psychiatry & Neurology Psychiatry | DX: F32.9 Major depressive disorder, single episode, unspecified (principal); R41.89 Other symptoms and signs involving cognitive functions and awareness | CPT/HCPCS: 99214 ==

== ENCOUNTER → 2021-07-24 14:56 | Outpatient (BNVA) | payer MEDICARE, SELFPAY | PROVIDERS: PCP Family Medicine; Visit Provider Orthopaedic Surgery | DX: Z47.1 Aftercare following joint replacement surgery (principal); Z96.652 Presence of left artificial knee joint | CPT/HCPCS: 73560; 73565 ==

== ENCOUNTER → 2021-08-27 14:55 | Outpatient (BNVA) | payer MEDICARE, SELFPAY | PROVIDERS: PCP Family Medicine; Visit Provider Psychiatry & Neurology Psychiatry | DX: F32.9 Major depressive disorder, single episode, unspecified (principal); R41.89 Other symptoms and signs involving cognitive functions and awareness | CPT/HCPCS: 99214 ==

== ENCOUNTER 2022-05-31 00:50 | Emergency (ER) | payer MEDICARE, SELFPAY ==
[2022-05-31 00:57] VITALS: BP 160/74; PULSE 74; RESP 19; TEMP 36.4; O2SAT 98; BMI 27.4
--- NOTE | 2022-05-31 01:03 | W.ED.GENADLT ---
HPI - General Adult General: Chief complaint: General Medical Stated complaint: wants bp taken Time Seen by Provider: 05/31/22 01:01 History of Present Illness: 76-year-old female comes in today for concerns of feeling fatigued and is concerned that her blood count is low. Patient's had a history of anemia and blood loss due to surgery. Patient appears nontoxic. Patient appears in no acute distress. 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 with reduced DLCO however total lung capacity is normal increased residual volume Cognitive impairment COPD (chronic obstructive pulmonary disease) Coronary disease GERD (gastroesophageal reflux disease) MDD (major depressive disorder) Osteoarthritis of left knee Psychiatric care Sinus bradycardia Surgical History Coronary angioplasty status History of knee replacement procedure of left knee Status post left knee replacement Family History Brother CAD (coronary artery disease) Social History Smoking and tobacco status: former smoker Alcohol intake: never Housing: House Current gender identity: Female Physical Exam Const: COMMON NORMALS: alert HENMT: COMMON NORMALS: normocephalic HEAD & SCALP: normocephalic Neck/C-Spine: COMMON NORMALS: full ROM Resp: COMMON NORMALS: normal respiratory effort Cardio: COMMON NORMALS: regular rate RATE: regular rate Extremity: COMMON NORMALS: no pedal edema Neuro: SENSORIUM/ORIENTATION: Yes alert Skin: COMMON NORMALS: turgor normal GENERAL SKIN EXAM: turgor normal Course Vital Signs: Vital signs: Vital Signs Temperature 97.6 F 05/31/22 00:57 Pulse Rate 74 05/31/22 00:57 Respiratory Rate 19 H 05/31/22 00:57 Blood Pressure 160/74 05/31/22 00:57 Pulse Oximetry 98 05/31/22 00:57 Oxygen Delivery Me thod 05/31/22 00:57 MDM - General Adult Medical Decision Making 76-year-old female comes in today for complaints of lightheadedness and worry about her blood count. On exam patient appears well. Vital signs were normal. Respirations were even. Abdomen soft nontender. No edema is noted in extremities. Differential diagnosis includes but not limited to anxiety, anemia, hypertension. Vital signs were unremarkable except for some mild elevation in blood pressure. Hemoglobin hematocrit was 13 and 40. Reviewed exam with patient with recommendations for follow-up with primary care. No serious illness or injuries were noted. Patient reported understanding. Lab Data : 05/31/22 01:25 Laboratory Results WBC 9.9 10^3/uL (4.0-10.0) 05/31/22 01:25 RBC 4.66 10^6/uL (4.1-5.3) 05/31/22 01:25 Hgb 13.3 g/dL (11.5-15.3) 05/31/22 01:25 Hct 40.7 % (37.0-47.0) 05/31/22 01:25 MCV 87.3 fl (81-99) 05/31/22 01:25 MCH 28.5 pg (28.0-34.0) 05/31/22 01:25 MCHC 32.7 g/dL (30.0-36.0) 05/31/22 01:25 RDW 13.9 % (12.1-15.1) 05/31/22 01:25 Plt Count 313 10^3/cmm (130-400) 05/31/22 01:25 MPV 8.6 fL (7.4-10.4) 05/31/22 01:25 Neut % (Auto) 42.3 % 05/31/22 01:25 Lymph % (Auto) 45.8 % 05/31/22 01:25 [place] % (Auto) 7.2 % 05/31/22 01:25 Eos % (Auto) 3.7 % 05/31/22 01:25 Baso % (Auto) 0.7 % 05/31/22 01:25 Neut # (Auto) 4.20 10^3/uL (1.8-7.7) 05/31/22 01:25 Lymph # (Auto) 4.5 10^3/uL (0.8-4.8) 05/31/22 01:25 [place] # (Auto) 0.7 10^3/uL (0.2-0.9) 05/31/22 01:25 Eos # (Auto) 0.4 10^3/uL (0.0-0.8) 05/31/22 01:25 Baso # (Auto) 0.1 10^3/uL (0.0-0.1) 05/31/22 01:25 Nucleated RBC % (auto) 0 % 05/31/22 01:25 Nucleated RBCs # 0.0 /100WBC 05/31/22 01:25 Discharge Plan Discharge Patient Disposition: Home Clinical Impression: Anxiety about health Condition: Stable Prescriptions: No Action amlodipine 10 mg tablet 10 mg PO QAM Qty: 30 0RF lovastatin 10 mg tablet 20 mg PO DAILY metoprolol tartrate 25 mg tablet 12.5 mg PO BID 30 Days Qty: 30 0RF citalopram 10 mg tablet 10 mg PO DAILY 30 Days Qty: 30 3RF fluticasone propion-salmeterol [Wixela Inhub] 250-50 mcg/dose blister with device 1 inh INHALATION BID albuterol sulfate 90 mcg/actuation HFA aerosol inhaler 2 puff INHALATION Q4H PRN (Reason: Shortness Of Breath) omega 9-ope-sjx-fish oil [Fish Oil] 1,000 mg (120 mg-180 mg) Capsule 2 cap PO DAILY Vitamin B-12 5,000 mcg/mL Drops 5,000 mcg SUBLINGUAL BID meloxicam 15 mg tablet 15 mg PO BID lorazepam 0.5 mg tablet 0.5 mg PO Q6H PRN (Reason: Anxiety) lisinopril 10 mg tablet 20 mg PO QAM Discharge Orders: Discharge ED (Routine); Ordered 05/31/22 Ordered By: Marito Mohan Referrals: Radhika Kaminski MD [Primary Care Provider] - Discharge Diet: Usual diet Discharge Activity: Increase activity as tolerated Patient Instructions: Lightheadedness (ED) Activity Restrictions/Additional Instructions: Home and rest. Drink plenty of fluids. Continue with routine medications as directed. Follow-up with Dr. Kaminski for further recommendations and treatment. Coding Level of Care Code ED Power System Engineer for Chg Fwd Exam Detailed
[2022-05-31 01:31] LABS: Basophils # 0.1 10^3/uL (0.0-0.1); Basophils % 0.7 %; Eosinophils # 0.4 10^3/uL (0.0-0.8); Eosinophils % 3.7 %; Hematocrit 40.7 % (37.0-47.0); Hemoglobin 13.3 g/dL (11.5-15.3); Lymphocytes # 4.5 10^3/uL (0.8-4.8); Lymphocytes % 45.8 %; Mean Corpuscular HGB Conc 32.7 g/dL (30.0-36.0); Mean Corpuscular Hemoglobin 28.5 pg (28.0-34.0); Mean Corpuscular Volume 87.3 fl (81-99); Mean Platelet Volume 8.6 fL (7.4-10.4); Monocytes # 0.7 10^3/uL (0.2-0.9); Monocytes % 7.2 %; Neutrophils % 42.3 %; Nucleated Red Blood Cells % 0 %; Platelet Count 313 10^3/cmm (130-400); Red Blood Count 4.66 10^6/uL (4.1-5.3); Red Cell Distribution Width 13.9 % (12.1-15.1); White Blood Count 9.9 10^3/uL (4.0-10.0)
== END 2022-05-31 02:02 | disposition home or self-care (01) ==
PROVIDERS: Emergency Provider Nurse Practitioner Family; PCP Family Medicine
DX: F41.9 Anxiety disorder, unspecified (principal); J44.9 Chronic obstructive pulmonary disease, unspecified; I25.10 Atherosclerotic heart disease of native coronary artery without angina pectoris; Z87.891 Personal history of nicotine dependence; Z98.61 Coronary angioplasty status
CPT/HCPCS: 36415; 85025; 99283

== ENCOUNTER 2024-01-09 09:37 | Inpatient (IN) | payer MEDICARE, SELFPAY ==
[2024-01-09] VITALS (7 sets, daily range): BP systolic 89–130; BP diastolic 69–74; PULSE 84–136; RESP 16–20; TEMP 36.4–37.1; O2SAT 91–94; BMI 26.9
--- NOTE | 2024-01-09 10:13 | XRR_ITS ---
PROCEDURE INFORMATION: Exam: XR Chest Exam date and time: 01/09/2024 10:29 AM Age: 78 years old Clinical indication: Dyspnea; Additional info: Weakness TECHNIQUE: Imaging protocol: Radiologic exam of the chest. Views: 1 view. COMPARISON: CR XR chest 1V portable [id number] 02/14/2021 2:44 AM FINDINGS: Lungs: Unremarkable. No consolidation. Pleural spaces: Unremarkable. No pleural effusion. No pneumothorax. Heart/Mediastinum: Unremarkable. No cardiomegaly. Bones/joints: Unremarkable. XR/XR chest 1V portable [id number] IMPRESSION: No acute findings.
--- NOTE | 2024-01-09 10:34 | ED_ITS ---
HPI - Nausea/Vomiting/Diarrhea 2 General: Chief complaint: Nausea/Vomiting/Diarrhea Stated complaint: dizzy, left side hip pain Time Seen by Provider: 01/09/24 10:09 History of Present Illness: 78-year-old female with a history of hyp ertension, dementia, anxiety, depression, COPD and coronary artery disease who presents to the emergency room with weakness, fevers, cough, dry heaves and worsening dementia symptoms. This is been going on for about a week. Family states she normally lives in their basement but this week she has been on her couch all week. 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 This does not appear red or infected. No focal motor deficits. No abdominal pain. Family states she has has had decreased appetite and has not eaten much of anything all week Review of Systems 2 Narrative: Constitutional symptoms: Negative except as documented in HPI. Skin symptoms: Negative except as documented in HPI. Eye symptoms: Negative except as documented in HPI. ENMT symptoms: Negative except as documented in HPI. Respiratory symptoms: Negative except as documented in HPI. Cardiovascular symptoms: Negative except as documented in HPI. Gastrointestinal symptoms: Negative except as documented in HPI. Genitourinary symptoms: Negative except as documented in HPI. Musculoskeletal symptoms: Negative except as documented in HPI. Neurologic symptoms: Negative except as documented in HPI. Psychiatric symptoms: Negative except as documented in HPI. Endocrine symptoms: Negative except as documented in HPI. PFSH ED 2 PFSH: Medical History (Updated 01/09/24 @ 15:30 by Kim Molina MD) Cognitive impairment MDD (major depressive disorder) Sinus bradycardia COPD (chronic obstructive pulmonary disease) Asthma 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 with reduced DLCO however total lung capacity is normal increased residual volume GERD (gastroesophageal reflux disease) Coronary disease Osteoarthritis of left knee Surgical History History of knee replacement procedure of left knee Coronary angioplasty status Status post left knee replacement Family History Brother CAD (coronary artery disease) Social History Smoking and tobacco/nicotine status: former use of tobacco/nicotine Alcohol intake: never Substance/Drug Use: never Housing: House Current gender identity: Female Physical Exam 2 Narrative: EXAM NARRATIVE: General: Alert, no acute distress. Skin: Warm, dry. Head: Normocephalic, atraumatic. Neck: Supple, trachea midline. Eye: Extraocular movements are intact. Ears, nose, mouth and throat: Tacky oral mucosa Cardiovascular: Regular rate and rhythm, Normal peripheral perfusion. Respiratory: some expiratory wheeze, mild increased wob, breath sounds are equal, Symmetrical chest wall expansion. Frequent cough with some gagging Gastrointestinal: Soft, Nontender, Non distended, Normal bowel sounds. Musculoskeletal: Normal ROM, no deformity. Neurological: Alert and oriented to person, place, time, and situation, No focal neurological deficit observed. Psychiatric: Cooperative, appropriate mood & affect. Course 2 Vital Signs: Vital signs: Vital Signs Temperature 97.6 F 01/09/24 10:25 Pulse Rate 89 01/09/24 10:45 Respiratory Rate 18 01/09/24 10:45 Blood Pressure 130/74 01/09/24 10:25 Pulse Oximetry 92 01/09/24 10:45 Oxygen Delivery Me thod Room Air 01/09/24 10:45 MDM - Nausea/Vomiting/Diarrhea Medical Decision Making Differential diagnosis for patient with shortness of breath includes but is not limited to and based on the above HPI, review of systems and physical exam: Pneumonia. Bronchitis. Asthma or COPD with acute exacerbation. Acute coronary syndrome / [place]. Pulmonary embolism. Anxiety. Congestive heart failure. Viral infections including influenza and Covid-19. Atrial fibrillation. Anxiety. Pleural effusion. Pneumothorax. Also urine and a lipase were ordered given her gagging and dry heaving. Workup: Lab work, chest X-ray and EKG ordered to evaluate, rule in and rule out above pathologies Chest x-ray: No acute process. No infiltrate. No pneumothorax. No cardiomegaly. This was reviewed and interpreted by myself the ER physician. EKG: Time 1224 rate 119. Atrial fibrillation with rapid ventricular response, No ST-T changes, no ectopy, This was reviewed and interpreted by myself the ER physician at 1228. Most recent EKG was in 2020. The 3 previous EKGs on the chart show sinus rhythm. No known history of atrial fibrillation CT head: No acute intracranial process. no intracranial hemorrhage, no evidence of infarct. no evidence of acute fracture.This was reviewed and interpreted by myself the ER physician. Lab Review: Laboratory results were reviewed and interpreted by myself the emergency room physician. Patient has a white count of 9. Hemoglobin 16. BUN and creatinine are 70 and 1.8. This is quite a bit above her baseline. Urinalysis does show 5-10 whites and 2+ bacteria. Treating for UTI and renal failure/dehydration. I reviewed the patient's medical record. Reexamination: Patient appears much more alert at this time. She was a little bit somnolent earlier. After some fluids she is talking and still very concerned about the fatty deposit on her left leg. No increased work of breathing. No focal motor deficits. Seems to be at her baseline mentation. Consultation: I spoke with Dr. Ward who is working with hospital service who agrees with admission. CT of the abdomen and pelvis is being done at the hospitalist request to rule out obstructive uropathy given the patient has renal failure. Assessment and plan: Acute on chronic renal failure Urinary tract infection Dehydration Metabolic encephalopathy COPD with acute exacerbation -Normal saline bolus, IV Rocephin -IV Solu-Medrol and 2 updrafts were given for her cough and wheeze. -I discussed the patient with the hospitalist on-call who is admitting the patient. - Discussed findings and plan with patient. Answered any questions. - All laboratory values were reviewed and interpreted personally by myself, the ER physician - All imaging was reviewed and interpreted personally by myself, the ER physician. - Evaluation and treatment of this problem were appropriate in the emergency setting Lab Data 01/09/24 11:28 01/09/24 13:20 Radiology Impressions Chest X-Ray 01/09/24 10:13 IMPRESSION: No acute findings. Head CT 01/09/24 13:06 IMPRESSION: No acute intracranial findings. Laboratory Results WBC 9.35 10^3/uL (3.29-11.43) 01/09/24 11:28 RBC 5.59 10^6/uL (3.85-5.65) 01/09/24 11:28 Hgb 16.10 g/dL (11.27-16.99) 01/09/24 11:28 Hct 50.0 % (36-47) H 01/09/24 11:28 MCV 89.4 fl (85-98) 01/09/24 11:28 MCH 28.8 pg (27-33) 01/09/24 11:28 MCHC 32.2 g/dL (30-55) 01/09/24 11:28 RDW 13.0 % (12.1-15.1) 01/09/24 11:28 Plt Count 322 10^3/cmm (157-399) 01/09/24 11:28 MPV 9.7 fL (7.4-10.4) 01/09/24 11:28 Neut % (Auto) 64.0 % 01/09/24 11:28 Lymph % (Auto) 27.9 % 01/09/24 11:28 [place] % (Auto) 7.6 % 01/09/24 11:28 Eos % (Auto) 0.1 % 01/09/24 11:28 Baso % (Auto) 0.1 % 01/09/24 11:28 Neut # (Auto) 5.98 10^3/uL (1.8-7.7) 01/09/24 11:28 Lymph # (Auto) 2.6 10^3/uL (0.8-4.8) 01/09/24 11:28 [place] # (Auto) 0.7 10^3/uL (0.2-0.9) 01/09/24 11:28 Eos # (Auto) 0.0 10^3/uL (0.0-0.8) 01/09/24 11:28 Baso # (Auto) 0.0 10^3/uL (0.0-0.1) 01/09/24 11:28 Nucleated RBC % (auto) 0 % 01/09/24 11:28 Nucleated RBCs # 0.0 /100WBC 01/09/24 11:28 Sodium 135 mmol/L (136-145) L 01/09/24 13:20 Potassium 4.8 mmol/L (3.5-5.1) 01/09/24 13:20 Chloride 100 mmol/L (98-107) 01/09/24 13:20 Carbon Dioxide 16 mmol/L (22-29) L 01/09/24 13:20 Anion Gap 23.8 (5-19) H 01/09/24 13:20 BUN 70 mg/dL (8-23) H 01/09/24 13:20 Creatinine 1.8 mg/dL (0.5-0.9) H 01/09/24 13:20 GFR Calculation Not Reportable 01/09/24 13:20 Glucose 130 mg/dL (65-115) H 01/09/24 13:20 Calculated Osmolality 302 mOsm/kg (285-295) H 01/09/24 13:20 Lactic Acid 3.6 mmol/L (0.5-2.2) H 01/09/24 11:28 Calcium 9.0 mg/dL (8.5-10.5) 01/09/24 13:20 Total Bilirubin 0.4 mg/dL (0.15-1.2) 01/09/24 13:20 AST 26 U/L (0-32) 01/09/24 13:20 ALT 22 U/L (0-33) 01/09/24 13:20 Alkaline Phosphatase 61 U/L (35-105) 01/09/24 13:20 Troponin T Baseline 32 ng/L (0-10) H 01/09/24 11:28 Troponin T 120 Minute 32.29 ng/L (0-10) H 01/09/24 13:20 Delta Troponin T 0.29 ABS# (0-10) 01/09/24 13:20 C-Reactive Protein 3.3 mg/L (0.0-4.9) 01/09/24 13:20 Total Protein 7.0 g/dL (6.6-8.7) 01/09/24 13:20 Albumin 3.9 g/dL (3.5-5.2) 01/09/24 13:20 Globulin 3.1 g/dL (1.3-4.6) 01/09/24 13:20 Lipase 82 U/L (13-60) H 01/09/24 13:20 Urine Color Yellow (Yellow) 01/09/24 13:50 Urine Appearance Hazy (CLEAR) A 01/09/24 13:50 Urine pH 5 (5-7) 01/09/24 13:50 Ur Specific [place] 1.020 (1.005-1.030) 01/09/24 13:50 Urine Protein Trace (Negative) 01/09/24 13:50 Urine Glucose (UA) Norm (Normal) 01/09/24 13:50 Urine Ketones 1+ (Negative) H 01/09/24 13:50 Urine Blood Neg (Negative) 01/09/24 13:50 Urine Nitrate Negative (Negative) 01/09/24 13:50 Urine Bilirubin 1+ (Negative) H 01/09/24 13:50 Urine Urobilinogen Norm mg/dL (Negative) 01/09/24 13:50 Ur Leukocyte Esterase Trace (Negative) H 01/09/24 13:50 Urine RBC None /hpf (0-2) 01/09/24 13:50 Urine WBC 5-10 /hpf (0-5) H 01/09/24 13:50 Ur Squamous Epith Cells 10-15 /hpf (0-5) H 01/09/24 13:50 Amorphous Sediment Not Reportable 01/09/24 13:50 Urine Bacteria 2+ /hpf (NONE) H 01/09/24 13:50 All radiology interpretation(s) finalized by discharge Discharge Plan Discharge Patient Disposition: Admitted As Inpatient Clinical Impression: Acute on chronic renal failure, Dehydration, Urinary tract infection, Metabolic encephalopathy, COPD with acute exacerbation Condition: Stable Coding Level of Care Code 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
[2024-01-09] MEDS: ipratropium-albuterol 3 mL Neb INHALATION (10:39)
[2024-01-09] MEDS: albuterol 2.5 mg/3 mL Neb INHALATION (10:39)
--- NOTE | 2024-01-09 10:45 | PC.PHAR ---
PT AMS - PTS DAUGHTER BROUGHT IN ALL PTS MED BOTTLES - MOST MEDS SHOULD BE OUT- ALL BOTTLES HAVE MEDS STILL IN THEM- PTS DAUGHTER STS PT TAKES CARE OF HER OWN MEDS BUT IS NON COMPLIANT
[2024-01-09] MEDS: methylPREDNISolone sod succ 125 mg/2 mL INJ IVP (11:27)
[2024-01-09] MEDS: ondansetron 2 mg/ML SDV 2 mL 4 MG IVP (11:27)
[2024-01-09] MEDS: sodium chloride 0.9% 1,000 ML 999 ML IV (11:39)
[2024-01-09 11:53] LABS: Basophils % 0.1 %; Eosinophils % 0.1 %; Lymphocytes # 2.6 10^3/uL (0.8-4.8); Lymphocytes % 27.9 %; Mean Corpuscular HGB Conc 32.2 g/dL (30-55); Mean Corpuscular Hemoglobin 28.8 pg (27-33); Mean Corpuscular Volume 89.4 fl (85-98); Mean Platelet Volume 9.7 fL (7.4-10.4); Monocytes # 0.7 10^3/uL (0.2-0.9); Monocytes % 7.6 %; Neutrophils # 5.98 10^3/uL (1.8-7.7); Nucleated Red Blood Cells % 0 %; Platelet Count 322 10^3/cmm (157-399); Red Blood Count 5.59 10^6/uL (3.85-5.65); White Blood Count 9.35 10^3/uL (3.29-11.43)
[2024-01-09 12:10] LABS: Lactic Sepsis W/Reflex 3.6 mmol/L (0.5-2.2)
[2024-01-09 12:11] LABS: Troponin(5th) Baseline 32 ng/L (0-10)
--- NOTE | 2024-01-09 12:15 | ECG_ITS ---
[facility] Test Date: 2024-01-09 Pat Name: Keyona Chavarria Department: Room: Gender: Female [employer] Developer: : 1945 Requested By: Kim Miller Order Number: [id number] Gee MD: Meredith Sotelo M.D. Measurements Intervals [place] Rate: 119 P: 0 PA: 0 QRS: -8 QRSD: 72 T: 76 QT: 300 QTc: 422 Interpretive Statements ATRIAL FIBRILLATION WITH RAPID VENTRICULAR RESPONSE LOW QRS VOLTAGE IN PRECORDIAL LEADS [QRS DEFLECTION < 1.0 mV IN CHEST LEADS] NONSPECIFIC T-WAVE ABNORMALITY ABNORMAL RHYTHM ECG Compared to ECG 02/18/2021 03:25:38 Low QRS voltage now present T-wave abnormality now present Sinus rhythm no longer present Electronically Signed On 01-09-2024 12:42:49 CDT by Meredith Sotelo M.D. [id number]
--- NOTE | 2024-01-09 13:06 | CTR_ITS ---
PROCEDURE INFORMATION: Exam: CT Head Without Contrast Exam date and time: 01/09/2024 1:24 PM Age: 78 years old Clinical indication: Altered mental status/memory loss; Confusion or disorientation; Additional info: Encephalopathy, altered mental status TECHNIQUE: Imaging protocol: Computed tomography of the head without contrast. Radiation optimization: All CT scans at this facility use at least one of these dose optimization techniques: automated exposure control; mA and/or kV adjustment per patient size (includes targeted exams where dose is matched to clinical indication); or iterative reconstruction. COMPARISON: CT head wo con* [id number] 02/13/2021 10:00 PM RADIATION DOSE METRICS: Total DLP (mGy-cm): 1739.78 FINDINGS: Brain: Diffuse cerebral atrophy, consistent with patient's age. No hemorrhage. No evidence of acute territorial infarction. Chronic left cerebellar infarct. Mild cerebral white matter hypodensities likely on the basis of chronic microvascular ischemic change. No mass effect. Prominent intracranial arterial calcifications, stable. Cerebral ventricles: Ventricles are in proportion to the degree of atrophy. Pituitary gland and sella: Partially empty sella. Paranasal sinuses: Visualized sinuses are unremarkable. No fluid levels. Mastoid air cells: Visualized mastoid air cells are well aerated. Bones: Unremarkable. No acute fracture. Soft tissues: Unremarkable. CT/CT head wo con* [id number] IMPRESSION: No acute intracranial findings.
[2024-01-09 13:36] LABS: Reflex Lactate Order REFLEX LACTIC ORDERD
[2024-01-09 14:16] LABS: Troponin 5 2HR 32.29 ng/L (0-10); Troponin 5 2HR Delta 0.29 ABS# (0-10)
[2024-01-09 14:16] LABS: Urine Appearance Hazy (CLEAR); Urine Color Yellow (Yellow); pH Urine 5 (5-7)
[2024-01-09 14:17] LABS: Add Urine Culture? No; Bacteria Urine 2+ /hpf; Bilirubin Urine 1+ (Negative); Blood Urine Neg (Negative); Glucose Urine UA Norm (Normal); Ketones Urine 1+ (Negative); Leukocyte Esterase Urine Trace (Negative); Nitrate Urine Negative (Negative); Protein Urine Trace (Negative); Urobilinogen Urine Norm (Negative)
[2024-01-09 14:31] LABS: Alanine Aminotransferase 22 U/L (0-33); Albumin Level 3.9 g/dL (3.5-5.2); Alkaline Phosphatase 61 U/L (35-105); Blood Urea Nitrogen 70 mg/dL (8-23); C Reactive Protein 3.3 mg/L (0.0-4.9); Carbon Dioxide 16 mmol/L (22-29); Chloride 100 mmol/L (98-107); Globulin 3.1 g/dL (1.3-4.6); Glucose 130 mg/dL (65-115); Lipase 82 U/L (13-60); Osmolality Calculated 302 mOsm/kg (285-295); Sodium 135 mmol/L (136-145); Total Bilirubin 0.4 mg/dL (0.15-1.2)
[2024-01-09 14:33] LABS: Anion Gap 23.8 (5-19); Aspartate Amino Transferase 26 U/L (0-32); Potassium 4.8 mmol/L (3.5-5.1)
--- NOTE | 2024-01-09 15:05 | CTR_ITS ---
PROCEDURE INFORMATION: Exam: CT Abdomen And Pelvis Without Contrast Exam date and time: 01/09/2024 3:32 PM Age: 78 years old Clinical indication: Condition or disease; Kidney or ureter condition; Chronic kidney disease or failure; Not specified; Patient HX: Patient has dementia and is unable to follow breathing instructions; Additional info: Renal failure, R/O obstructive uropathy per hospitalist TECHNIQUE: Imaging protocol: Computed tomography of the abdomen and pelvis without contrast. Radiation optimization: All CT scans at this facility use at least one of these dose optimization techniques: automated exposure control; mA and/or kV adjustment per patient size (includes targeted exams where dose is matched to clinical indication); or iterative reconstruction. COMPARISON: CR (CHEST, ) 01/09/2024 10:29 AM RADIATION DOSE METRICS: Total DLP (mGy-cm): 483.53 FINDINGS: Limitations: Motion artifact degradation. Lungs: Right lower lung subsegmental atelectasis versus scarring. Heart: Mitral annular calcification. Coronary arteries: Coronary artery calcification. Liver: Normal. No mass. Gallbladder and bile ducts: Prior cholecystectomy with common duct dilatation measuring up to 1.5 cm. No intrahepatic biliary ductal dilatation. Pancreas: Normal. No ductal dilation. Spleen: Normal. No splenomegaly. Adrenal glands: Normal. No mass. Kidneys and ureters: Bilateral simple appearing renal cysts require no dedicated imaging follow-up. Otherwise unremarkable. Stomach and bowel: No obstruction. Colonic diverticulosis without findings of diverticulitis. Appendix: No evidence of appendicitis. Intraperitoneal space: Unremarkable. No free air. No significant fluid collection. Vasculature: Heavy systemic atherosclerotic calcification without abdominal aortic aneurysm. Lymph nodes: Unremarkable. No enlarged lymph nodes. Urinary bladder: Unremarkable as visualized. Reproductive: Unremarkable as visualized. Bones/joints: No acute fracture. Dextroconvex spinal curvature. Degenerative change along the spine. Soft tissues: 1.1 cm long right buttock nodular dermal thickening on axial image 71 of series 3, correlate with direct visualization. CT/CT abdomen pelvis wo con [id number] IMPRESSION: 1. No calcified urolithiasis or obstructive uropathy. 2. Common duct dilatation may be on the basis of prior cholecystectomy. 3. Additional chronic and incidental findings as above, to include atherosclerosis and colonic diverticulosis.
[2024-01-09 15:38] LABS: Creatine Phosphokinase 131 U/L (26-192)
[2024-01-09] MEDS: cefTRIAXone 1,000 MG in sodium chloride 0.9% (plus) 50 ML 100 MG IV (15:46)
[2024-01-09 15:53] LABS: Lactic Acid level (Lactate) 2.1 mmol/L (0.5-2.2)
--- NOTE | 2024-01-09 16:50 | ECG_ITS ---
[facility] Test Date: 2024-01-09 Pat Name: Keyona Chavarria Department: Room: Gender: Female [employer] Employee [employer]: : 1945 Requested By: Kim Miller Order Number: [id number] Gee MD: Meredith Sotelo M.D. Measurements Intervals [place] Rate: 139 P: 0 NE: 0 QRS: -1 QRSD: 78 T: 100 QT: 287 QTc: 437 Interpretive Statements ATRIAL FIBRILLATION WITH RAPID VENTRICULAR RESPONSE NONSPECIFIC T-WAVE ABNORMALITY Compared to ECG 01/09/2024 12:24:45 No significant changes Electronically Signed On 01-10-2024 13:49:02 CDT by Meredith Sotelo M.D. [id number]
[2024-01-09 18:08] LABS: Troponin 5 6HR 25.28 ng/L (0-10)
[2024-01-09 18:09] LABS: Troponin 5 6HR Delta -6.72 ng/L (0-12)
--- NOTE | 2024-01-09 18:31 | PC.NURSE ---
Patient presents to CSU from ED via a bed at 1832 . She is able to walk from ED bed to CSU bed.
[2024-01-09] MEDS: pantoprazole 40 mg SDV IVP (20:49)
[2024-01-09] MEDS: sodium chloride 0.9% 500 ML 999 ML IV (21:40)
[2024-01-09 21:54] LABS: Anion Gap 18.9 (5-19); Blood Urea Nitrogen 73 mg/dL (8-23); Calcium 8.2 mg/dL (8.5-10.5); Carbon Dioxide 17 mmol/L (22-29); Chloride 98 mmol/L (98-107); Creatinine Clr Calc Pharmacy 27.5847; Glucose 202 mg/dL (65-115); Magnesium 2.4 mg/dL (1.7-2.3); Osmolality Calculated 295 mOsm/kg (285-295); Potassium 4.9 mmol/L (3.5-5.1); Sodium 129 mmol/L (136-145)
--- NOTE | 2024-01-09 22:18 | P.HP_ITS ---
Providers/Chief Complaint 2 Admitting Physician: Melina Ward MD Primary Care Provider: Radhika Kaminski MD Chief Complaint: dizzy, left side hip pain History of Present Illness Keyona Chavarria is a 78 year old female With past medical history of hypertension Presented to the emergency room this evening with complaints of feeling fatigued, weakness. In the ED she was noted to have an elevated creatinine. Concern for possible urinary tract infection. The patient subsequently was noted to have atrial fibrillation. She denied any chest pain, dyspnea, fevers. Review of Systems 2 General: Reports: 10 or more systems reviewed and unremarkable except in HPI and below Const: Reports: fatigue; Denies: fever(s) or chills Eyes: Denies: change in vision or blurry vision Resp: Denies: dyspnea or productive cough Musc: Denies: neck pain or back pain Neuro: Denies: headache(s) or numbness in extremities Medications/Allergies Home Medications Medication Instructions Recorded Confirmed Last Taken Type lovastatin 10 mg tablet 20 mg PO DAILY 02/07/20 01/09/24 03/13/21 History cyanocobalamin (vitamin B-12) 5,000 mcg sublingual BID 02/17/20 01/09/24 02/17/21 History 5,000 mcg/mL sublingual drops (Vitamin B-12) omega 2-glj-dxi-fish oil 1,000 mg 2 cap PO DAILY 02/17/20 01/09/24 02/17/21 History (120 mg-180 mg) capsule (Fish Oil) lisinopril 10 mg tablet 20 mg PO QAM 03/14/21 01/09/24 03/13/21 History amlodipine 10 mg tablet 10 mg PO QAM #30 tabs 05/07/21 01/09/24 Unknown Rx metoprolol tartrate 25 mg tablet 12.5 mg (1/2 x 25 mg) PO BID 30 05/30/21 01/09/24 Unknown Rx days #30 tabs meloxicam 7.5 mg tablet 15 mg PO DAILY 01/09/24 01/09/24 Unknown History Allergies Allergy/AdvReac Type Severity Reaction Status Date / Time codeine Allergy ALGY-Rash Verified 12/25/21 08:03 PFSH Acute 2 PFSH: Medical History (Updated 01/09/24 @ 22:26 by Melina Ward MD) Cognitive impairment MDD (major depressive disorder) Sinus bradycardia COPD (chronic obstructive pulmonary disease) Asthma 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 with reduced DLCO however total lung capacity is normal increased residual volume GERD (gastroesophageal reflux disease) Coronary disease Osteoarthritis of left knee Surgical History History of knee replacement procedure of left knee Coronary angioplasty status Status post left knee replacement Family History Brother CAD (coronary artery disease) Social History Smoking and tobacco/nicotine status: former use of tobacco/nicotine Alcohol intake: never Substance/Drug Use: never Housing: House Current gender identity: Female Vitals/I&O/Wt Last Vital Signs Temp 98.7 F 01/09/24 20:01 Pulse 136 H 01/09/24 21:38 Resp 20 H 01/09/24 21:38 BP 89/69 01/09/24 20:01 Pulse Ox 93 01/09/24 21:38 O2 Del Method Nasal Cannula 01/09/24 21:38 O2 Flow Rate 2 01/09/24 21:38 01/09/24 01/09/24 01/09/24 06:59 14:59 22:59 Intake Total 1250 / 1250 Balance 1250 / 1250 Weight last 48 hrs Weight 156 lb 14.4 oz Physical Exam 2 Const: COMMON NORMALS: no acute distress, average body habitus and patient oriented x3 HENMT: HEAD & SCALP: normal to inspection and normocephalic Resp: AUSCULTATION: wheezes Cardio: RATE: tachycardic RHYTHM: abnormal rhythm GI: INSPECTION: Yes normal to inspection Neuro: SPEECH: speech normal Data 01/09/24 11:28 01/09/24 21:31 Micro: Microbiology 01/09/24 11:28 Blood Culture - Preliminary Blood SPECIMEN COLLECTED 01/09/24 11:32 Blood Culture - Preliminary Blood SPECIMEN COLLECTED A&P Assessment and plan (1) Urinary tract infection: abnormal UA CT negative for renal stone continue Rocephin (2) Dehydration: IVF repeat labs (3) Acute on chronic renal failure: IVF, repeat labs avoid nephrotoxic medications (4) Atrial fibrillation: with RVR TSH wnl, Mg mild elevated low BP noted, IVF bolus given amiodarone ordered consider vasopressor, midodrine cardiology consultation check ECHO Attestations 2 Medical Necessity Statement*: dehydration, afib Coding Level of Care Code 24765 Diagnoses Urinary tract infection N39.0 Dehydration E86.0 Acute on chronic renal failure N17.9; N18.9 Atrial fibrillation I48.91
[2024-01-09] MEDS: hyDROXYzine 25 mg Capsule PO (22:32)
[2024-01-09] MEDS: amiodarone 150 MG/100 ML PREMIX 400 MG IV (23:06)
[2024-01-09] MEDS: sodium chloride 0.9% 500 ML IV (23:09)
[2024-01-10] VITALS (12 sets, daily range): BP systolic 93–142; BP diastolic 63–100; PULSE 90–140; RESP 17–34; TEMP 36.4–37; O2SAT 91–96
[2024-01-10 02:27] LABS: Glucose Point of Care 189 mg/dL (70-110)
[2024-01-10 05:19] LABS: Hematocrit 41.2 % (36-47); Lymphocytes # 1.1 10^3/uL (0.8-4.8); Lymphocytes % 24.1 %; Mean Corpuscular Hemoglobin 29.3 pg (27-33); Mean Corpuscular Volume 86.2 fl (85-98); Mean Platelet Volume 8.9 fL (7.4-10.4); Monocytes # 0.5 10^3/uL (0.2-0.9); Monocytes % 10.7 %; Neutrophils # 2.86 10^3/uL (1.8-7.7); Nucleated Red Blood Cells % 0 %; Platelet Count 201 10^3/cmm (157-399); Red Blood Count 4.78 10^6/uL (3.85-5.65)
[2024-01-10 05:43] LABS: Cortisol Random 9.38 ug/dL (2.47-19.5)
[2024-01-10 05:58] LABS: Anion Gap 16.9 (5-19); Blood Urea Nitrogen 61 mg/dL (8-23); Calcium 7.9 mg/dL (8.5-10.5); Carbon Dioxide 19 mmol/L (22-29); Chloride 109 mmol/L (98-107); Glucose 144 mg/dL (65-115); Osmolality Calculated 310 mOsm/kg (285-295); Potassium 4.9 mmol/L (3.5-5.1); Sodium 140 mmol/L (136-145)
[2024-01-10] MEDS: atorvastatin 40 mg Tablet 20 MG PO (08:24)
[2024-01-10] MEDS: amiodarone 200 mg Tablet 400 MG PO ×2 (08:24→17:16)
[2024-01-10 09:41] LABS: Lipase 93 U/L (13-60)
[2024-01-10] MEDS: nystatin powder 15 gm Btl 1 APPLIC TOPICAL ×2 (10:09→17:16)
[2024-01-10] MEDS: lactated ringers 1,000 ML 75 ML IV ×2 (10:10→22:41)
--- NOTE | 2024-01-10 12:13 | P.CONIM_ITS ---
Providers/Reason For Consult 2 Consulting Physician/Specialty*: Cardiology Reason for Consult*: Atrial fibrillation Requesting Physician: Dr. Summers Attending Physician: Melina Ward MD Primary Care Provider: Radhika Kaminski MD History of Present Illness History of Present Illness Keyona Chavarria is a 78 year old female with a previous history of hypertension, who presented to the ER with the fatigue and feeling unwell. She was clinically dehydrated and was diagnosed with a likely having a UTI. At the same time she was found to be in tachycardia with irregularly irregular pulse. EKG showed atrial fibrillation with rapid ventricular rate, heart rate up to 120s. Since admission patient has been started on IV amiodarone. Clinically patient denies any symptoms of palpitation, chest pain. However she does get some shortness of air on walking. No history of orthopnea or proximal nocturnal dyspnea. At times she feels some swelling of lower extremities. Currently patient is on IV amiodarone infusion as per protocol. She is comfortable. No chest pain or shortness of air while resting on her bed. She remains in atrial fibrillation heart rate 90-120 per minute. Patient was also managed with IV fluids with improved creatinine from 1.6 to 1.3. Review of Systems 2 Narrative: Detailed 10 point systemic review unremarkable except for as mentioned above in the history of present illness. No history of angina or heart failure symptoms. Patient told her blood pressure is mostly good control. Moderate ambulatory status. Medications/Allergies Home Medications Medication Instructions Recorded Confirmed Last Taken Type lovastatin 10 mg tablet 20 mg PO DAILY 02/07/20 01/09/24 03/13/21 History cyanocobalamin (vitamin B-12) 5,000 mcg sublingual BID 02/17/20 01/09/24 02/17/21 History 5,000 mcg/mL sublingual drops (Vitamin B-12) omega 3-tqk-pur-fish oil 1,000 mg 2 cap PO DAILY 02/17/20 01/09/24 02/17/21 History (120 mg-180 mg) capsule (Fish Oil) lisinopril 10 mg tablet 20 mg PO QAM 03/14/21 01/09/24 03/13/21 History amlodipine 10 mg tablet 10 mg PO QAM #30 tabs 05/07/21 01/09/24 Unknown Rx metoprolol tartrate 25 mg tablet 12.5 mg (1/2 x 25 mg) PO BID 30 05/30/21 01/09/24 Unknown Rx days #30 tabs meloxicam 7.5 mg tablet 15 mg PO DAILY 01/09/24 01/09/24 Unknown History Allergies Allergy/AdvReac Type Severity Reaction Status Date / Time codeine Allergy ALGY-Rash Verified 12/25/21 08:03 Current Medications Generic Name Dose Route Start Last Admin Trade Name Freq PRN Reason Stop Dose Admin Amiodarone HCl 400 mg 01/09/24 21:08 01/10/24 08:24 Amiodarone 200 Mg Tablet PO 400 mg BID VICKY Administration Atorvastatin Calcium 20 mg 01/10/24 09:00 01/10/24 08:24 Atorvastatin 40 Mg Tablet PO 20 mg DAILY VICKY Administration Amiodarone HCl/Dextrose 360 mg in 200 mls @ 0 mls/hr 01/09/24 22:30 01/10/24 05:51 Nexterone IV 0.5 mg/min .Q0M VICKY 16.67 mls/hr Titration Protocol Per Protocol Lactated Ringer's 1,000 mls @ 75 mls/hr 01/10/24 09:15 01/10/24 10:10 Lactated Ringers IV 75 mls/hr .[id number] VICKY Administration Nystatin 1 applic 01/10/24 09:00 01/10/24 10:09 Nystatin Powder 15 Gm Btl TOPICAL 1 applic BID VICKY Administration Pantoprazole Sodium 40 mg 01/09/24 20:15 01/09/24 20:49 Pantoprazole 40 Mg Sdv IVP 40 mg Q24H VICKY Administration Additional Medication Information Medication reviewed. PFSH Acute 2 PFSH: Medical History Cognitive impairment MDD (major depressive disorder) Sinus bradycardia COPD (chronic obstructive pulmonary disease) Asthma 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 with reduced DLCO however total lung capacity is normal increased residual volume GERD (gastroesophageal reflux disease) Coronary disease Osteoarthritis of left knee Surgical History History of knee replacement procedure of left knee Coronary angioplasty status Status post left knee replacement Family History Brother CAD (coronary artery disease) Social History Smoking and tobacco/nicotine status: former use of tobacco/nicotine Alcohol intake: never Substance/Drug Use: never Housing: House Current gender identity: Female Vitals/I&O/Wt Last Vital Signs Temp 98.2 F 01/10/24 08:53 Pulse 122 H 01/10/24 09:14 Resp 18 01/10/24 09:14 BP 119/100 01/10/24 08:53 Pulse Ox 91 01/10/24 09:14 O2 Del Method Room Air 01/10/24 09:14 O2 Flow Rate 2 01/09/24 21:38 01/09/24 01/10/24 01/10/24 22:59 06:59 14:59 Intake Total 1250 / 1250 1501.111 / 2751.111 Balance 1250 / 1250 1501.111 / 2751.111 Weight last 48 hrs Weight 160 lb Weight 156 lb 14.4 oz Physical Exam 2 Narrative: Patient resting comfortably on her bed. No respiratory distress. Vitals revealed irregularly irregular pulse, rate 80 to 120. Her blood pressure currently 118/79. There is no JVD. HEENT exam unremarkable. Chest auscultation reveals good air entry bilaterally. No added sounds. Card examination normal first and second heart sounds. Irregularly irregular heartbeat atrial fibrillation. No added sounds. Extremities. trace bilateral lower extremity edema. Abdomen soft nontender bowel sounds audible. Skin warm and dry. Neuro exam: grossly intact. Data 01/10/24 04:45 01/10/24 04:45 Micro: Microbiology 01/09/24 11:28 Blood Culture - Preliminary Blood NEGATIVE TO DATE 01/09/24 11:32 Blood Culture - Preliminary Blood Staphylococcus sp coag neg A&P Assessment and plan (1) Atrial fibrillation: Plan 78-year-old female patient with history of hypertension now presenting with atrial fibrillation with rapid ventricular rate in the setting of dehydration as well as likely UTI. Clinically and hemodynamically she is stable. No clinical signs symptoms just of angina or heart failure. Plan: 1. Agree to continue IV amiodarone for now. 2. I am going to add Eliquis 2.5 mg twice a day for anticoagulation. 3. Recommend to consider digoxin for atrial fibrillation rate control if blood pressure remains low. 4. I have asked for echocardiogram to assess cardiac functional and structural status.. Coding Level of Care Code Acute Code for [facility] Fwd Diagnoses Atrial fibrillation I48.91 Time Spent (min) 40
[2024-01-10] MEDS: apixaban 5 mg Tablet 2.5 MG PO ×2 (12:34→20:19)
--- NOTE | 2024-01-10 12:48 | P.PN_ITS ---
Subjective 2 Subjective: HR elevated BP soft overnight reports feels better daughter at bedside Vitals/I&O/Wt Last Vital Signs Temp 98.2 F 01/10/24 08:53 Pulse 122 H 01/10/24 09:14 Resp 18 01/10/24 09:14 BP 119/100 01/10/24 08:53 Pulse Ox 91 01/10/24 09:14 O2 Del Method Room Air 01/10/24 09:14 O2 Flow Rate 2 01/09/24 21:38 01/09/24 01/10/24 01/10/24 22:59 06:59 14:59 Intake Total 1250 / 1250 1501.111 / 2751.111 Balance 1250 / 1250 1501.111 / 2751.111 Weight last 48 hrs Weight 160 lb Weight 156 lb 14.4 oz Physical Exam 2 Const: COMMON NORMALS: no acute distress, average body habitus and patient oriented x3 HENMT: COMMON NORMALS: normocephalic HEAD & SCALP: normal to inspection and normocephalic Resp: AUSCULTATION: wheezes Cardio: RATE: tachycardic RHYTHM: abnormal rhythm GI: INSPECTION: Yes normal to inspection Neuro: COMMON NORMALS: patient oriented x3 SPEECH: speech normal Data 01/10/24 04:45 01/10/24 04:45 Micro: Microbiology 01/09/24 11:28 Blood Culture - Preliminary Blood NEGATIVE TO DATE 01/09/24 11:32 Blood Culture - Preliminary Blood Staphylococcus sp coag neg A&P Assessment and plan (1) Urinary tract infection: abnormal UA CT negative for renal stone continue Rocephin (2) Dehydration: IVF repeat labs (3) Acute on chronic renal failure: IVF, repeat labs avoid nephrotoxic medications (4) Atrial fibrillation: with RVR TSH wnl, Mg mild elevated amiodarone drip ordered consider vasopressor, midodrine cardiology consultation check ECHO Attestations 2 Medical Necessity Statement*: Keyona Chavarria's hospital stay will require greater than 2 midnights for iv abx, echo Coding Level of Care Code Acute Code for [facility] Fwd Diagnoses Urinary tract infection N39.0 Dehydration E86.0 Acute on chronic renal failure N17.9; N18.9 Atrial fibrillation I48.91
--- NOTE | 2024-01-10 13:19 | XRR_ITS ---
PROCEDURE INFORMATION: Exam: XR Chest Exam date and time: 01/10/2024 2:20 PM Age: 78 years old Clinical indication: Other: Poss bloo culture; Additional info: Positive blood culture TECHNIQUE: Imaging protocol: Radiologic exam of the chest. Views: 1 view. COMPARISON: CR (CHEST, ) 01/09/2024 10:29 AM FINDINGS: Lungs: Unremarkable. No consolidation or mass. Pleural spaces: Unremarkable. No pleural effusion. No pneumothorax. Heart/Mediastinum: Unremarkable. No cardiomegaly. Bones/joints: Unremarkable. XR/XR chest 1V portable [id number] IMPRESSION: No acute findings.
--- NOTE | 2024-01-10 15:01 | PC.NURSE ---
Dr. Ward is notified that patient heart rate has still been running in the 110-150. Provider requested that nursing staff call cardiology. Dr. Sotelo is notified of patients heart rate and most recent blood pressure of 126/87. He ordered metroprolol 25mg PO once and digoxin 500 mcg IVP once. Orders entered.
[2024-01-10] MEDS: metoprolol tartrate 25 mg Tablet PO (15:20)
[2024-01-10] MEDS: digoxin 250 mcg/ml INJ 2 mL 500 MCG IVP (15:20)
[2024-01-10] MEDS: cefTRIAXone 1,000 MG in sodium chloride 0.9% (plus) 50 ML 100 MG IV (15:20)
[2024-01-10 16:34] LABS: Adenovirus Not Detected (NOT DETECT); Chlamydia Pneumoniae Not Detected (NOT DETECT); Coronavirus 229E,HKU1,NL63,OC4 Not Detected (NOT DETECT); Human Metapneumovirus Not Detected (NOT DETECT); Human Rhinovirus/Enterovirus Not Detected (NOT DETECT); Influenza A Detected (NOT DETECT); Influenza A H1 Not Detected (NOT DETECT); Influenza A H1-2009 Not Detected (NOT DETECT); Influenza A H3 Not Detected (NOT DETECT); Influenza B Not Detected (NOT DETECT); Mycoplasma Pneumoniae Not Detected (NOT DETECT); Parainfluenza Virus Type 1 Not Detected (NOT DETECT); Parainfluenza Virus Type 2 Not Detected (NOT DETECT); Parainfluenza Virus Type 3 Not Detected (NOT DETECT); Parainfluenza Virus Type 4 Not Detected (NOT DETECT); Respiratory Syncytial Virus A Not Detected (NOT DETECT); Respiratory Syncytial Virus B Not Detected (NOT DETECT); SARS-COV-2 Not Detected (NOT DETECT)
--- NOTE | 2024-01-10 17:57 | PC.NURSE ---
Cardiac diet ordered per provider.
[2024-01-10] MEDS: pantoprazole 40 mg SDV IVP (20:21)
[2024-01-11] VITALS (8 sets, daily range): BP systolic 112–162; BP diastolic 73–93; PULSE 107–131; RESP 18–25; TEMP 36.4–36.8; O2SAT 91–94
[2024-01-11] MEDS: acetaminophen 325 mg Tablet 650 MG PO ×2 (02:39→16:34)
[2024-01-11 04:38] LABS: Basophils % 0.1 %; Hematocrit 42.1 % (36-47); Lymphocytes # 3.1 10^3/uL (0.8-4.8); Lymphocytes % 27.4 %; Mean Corpuscular HGB Conc 33.3 g/dL (30-55); Mean Corpuscular Hemoglobin 28.5 pg (27-33); Mean Corpuscular Volume 85.6 fl (85-98); Mean Platelet Volume 9.3 fL (7.4-10.4); Monocytes # 0.9 10^3/uL (0.2-0.9); Monocytes % 8.3 %; Neutrophils # 7.12 10^3/uL (1.8-7.7); Neutrophils % 63.9 %; Nucleated Red Blood Cells % 0 %; Platelet Count 249 10^3/cmm (157-399); Red Blood Count 4.92 10^6/uL (3.85-5.65); Red Cell Distribution Width 13.2 % (12.1-15.1); White Blood Count 11.14 10^3/uL (3.29-11.43)
[2024-01-11 05:03] LABS: Anion Gap 16.4 (5-19); Blood Urea Nitrogen 35 mg/dL (8-23); Calcium 8.4 mg/dL (8.5-10.5); Carbon Dioxide 22 mmol/L (22-29); Chloride 109 mmol/L (98-107); Creatinine Clr Calc Pharmacy 44.5406; Glucose 101 mg/dL (65-115); Osmolality Calculated 304 mOsm/kg (285-295); Potassium 4.4 mmol/L (3.5-5.1); Sodium 143 mmol/L (136-145)
[2024-01-11] MEDS: atorvastatin 40 mg Tablet 20 MG PO (09:06)
[2024-01-11] MEDS: amiodarone 200 mg Tablet 400 MG PO ×2 (09:07→17:46)
[2024-01-11] MEDS: apixaban 5 mg Tablet 2.5 MG PO ×2 (09:07→20:03)
[2024-01-11] MEDS: nystatin powder 15 gm Btl 1 APPLIC TOPICAL ×2 (09:07→17:47)
--- NOTE | 2024-01-11 09:30 | PC.CHAP ---
Pastoral Care Encounter/Spiritual Assessment Type of Contact [] Declined potato chip processing supervisor visit [] Patient/Family/Request visit [] Outpatient visit [] Follow-up visit [] Physician referral [] Code/Alert [x] Routine visit [] Staff referral [] Actively dying [] Patient sleeping [x] Family support [] [] Out of room [] Palliative care [] [] Receiving care in room [] Pre-surgical visit [] Trauma [] Long length of stay [] ICU visit [] Other: Relational/Emotional Strength [] Patient feels connected with others/family/visitors/staff [] Distress [] Loneliness/isolation [] Abandonment Spirituality of Patient [x] Person of Mago [] Attends Tenriism of their Mago [x] Believes in Prayer [] Reads Bible or Worship materials [] There are Spiritual issues to be addressed Channel Layer Interventions [x] Prayer [x Active listening [] Non-anxious presence [] Spiritual/emotional support [] Crisis/trauma care [] Spiritual counseling [] Bereavement support [] Provided bereavement packet [] Provided Bible/devotional materials [] Provided toy/stuffed animal, coloring book to patient or family member [] Provided Communion [] Anointing/[place] [] Salvation [] Completed spiritual assessment [] Other: Impact on Illness or Injury [] Angry [] Fearful [] Anxious [] Often cries [] Exhaustion [] Unable to work [] Unable to attend synagogue [] Unable to walk/stand [] Unable to read [] Unable to drive [] Unable to eat/drink [] Unable to sleep [] Unable to be with family [] Patient intubated [] Other: Summary Time spent with patient 5 min
--- NOTE | 2024-01-11 09:34 | PC.CHAP ---
Pastoral Care Encounter/Spiritual Assessment Type of Contact [] Declined research and insights executive visit [] Patient/Family/Request visit [] Outpatient visit [] Follow-up visit [] Physician referral [] Code/Alert [x] Routine visit [] Staff referral [] Actively dying [] Patient sleeping [x] Family support [] [] Out of room [] Palliative care [] [] Receiving care in room [] Pre-surgical visit [] Trauma [] Long length of stay [] ICU visit [] Other: Relational/Emotional Strength [] Patient feels connected with others/family/visitors/staff [] Distress [] Loneliness/isolation [] Abandonment Spirituality of Patient [x] Person of Mago [] Attends Evangelical of their Mago [x] Believes in Prayer [] Reads Bible or Oriental Orthodox materials [] There are Spiritual issues to be addressed Network Announcer Interventions [x] Prayer [x] Active listening [] Non-anxious presence [] Spiritual/emotional support [] Crisis/trauma care [] Spiritual counseling [] Bereavement support [] Provided bereavement packet [] Provided Bible/devotional materials [] Provided toy/stuffed animal, coloring book to patient or family member [] Provided Communion [] Anointing/[place] [] Salvation [x] Completed spiritual assessment [] Other: Impact on Illness or Injury [] Angry [] Fearful [] Anxious [] Often cries [] Exhaustion [] Unable to work [] Unable to attend methodist [] Unable to walk/stand [] Unable to read [] Unable to drive [] Unable to eat/drink [] Unable to sleep [] Unable to be with family [] Patient intubated [] Other: Summary Time spent with patient 5 min
--- NOTE | 2024-01-11 12:02 | P.PN_ITS ---
Subjective 2 Subjective: poor sleep overnight wants to go home heart rate still fluctuating daughter at bedside Vitals/I&O/Wt Last Vital Signs Temp 98.2 F 01/11/24 11:51 Pulse 124 H 01/11/24 11:51 Resp 18 01/11/24 11:51 BP 132/93 01/11/24 11:51 Pulse Ox 92 01/11/24 11:51 O2 Del Method Room Air 01/11/24 11:51 O2 Flow Rate 2 01/09/24 21:38 01/10/24 01/11/24 01/11/24 22:59 06:59 14:59 Intake Total 1058.889 / 1058.889 200 / 1258.889 120 / 120 Output Total 0 / 0 Balance 1058.889 / 1058.889 200 / 1258.889 120 / 120 Weight last 48 hrs Weight 163 lb 3.2 oz Weight 160 lb Weight 156 lb 14.4 oz Physical Exam 2 Const: COMMON NORMALS: no acute distress, average body habitus and patient oriented x3 HENMT: COMMON NORMALS: normocephalic HEAD & SCALP: normal to inspection and normocephalic Resp: AUSCULTATION: wheezes Cardio: RATE: tachycardic RHYTHM: abnormal rhythm GI: INSPECTION: Yes normal to inspection Neuro: COMMON NORMALS: patient oriented x3 SPEECH: speech normal Data 01/11/24 03:44 01/11/24 03:44 Micro: Microbiology 01/09/24 11:28 Blood Culture - Preliminary Blood NEGATIVE TO DATE 01/09/24 11:32 Blood Culture - Preliminary Blood Staphylococcus sp coag neg A&P Assessment and plan (1) Urinary tract infection: abnormal UA CT negative for renal stone continue Rocephin (2) Dehydration: IVF repeat labs (3) Acute on chronic renal failure: IVF, repeat labs avoid nephrotoxic medications (4) Atrial fibrillation: with RVR TSH wnl, Mg mild elevated amiodarone drip ordered consider vasopressor, midodrine cardiology consultation check ECHO (5) Bacteremia: thought to be 2/2 to contaminant monitor (6) Insomnia: add HS seroquel Attestations 2 Medical Necessity Statement*: Keyona Chavarria requires ongoing inpatient care for abx Coding Level of Care Code 76540 Diagnoses Urinary tract infection N39.0 Dehydration E86.0 Acute on chronic renal failure N17.9; N18.9 Atrial fibrillation I48.91 Bacteremia R78.81 Insomnia G47.00
--- NOTE | 2024-01-11 12:16 | PC.NURSE ---
Provider notified that patient is becoming more anxious about still being in the hospital and is requesting something. Provider entered a order for Seroquel. Provider also ordered to discontinue the LR.
[2024-01-11] MEDS: quetiapine 25 mg Tablet PO ×2 (12:26→20:04)
--- NOTE | 2024-01-11 13:36 | PC.SOCIAL ---
Pg 2 IMM Updated pt & daughter on IMM. No questions voiced. Provided pt a copy. Initialed, dated, & timed a copy & placed in chart.
[2024-01-11] MEDS: cefTRIAXone 1,000 MG in sodium chloride 0.9% (plus) 50 ML 100 MG IV (15:56)
[2024-01-11] MEDS: pantoprazole 40 mg SDV IVP (20:03)
[2024-01-11] MEDS: guaiFENesin 600 mg Tablet PO (21:16)
--- NOTE | 2024-01-11 21:56 | PC.NURSE ---
This nurse asked patient what year it was and patient stated You are trying to trick me you are, get the fuck out of my room you fuck head. Patient was educated that the questions are part of the assessment. Patient stated Go on get out you bitch. Will continue to monitor.
[2024-01-12] VITALS (7 sets, daily range): BP systolic 115–165; BP diastolic 64–92; PULSE 64–119; RESP 16–21; TEMP 36.5–36.6; O2SAT 90–94
[2024-01-12 04:31] LABS: Basophils % 0.1 %; Eosinophils % 0.2 %; Hematocrit 45.2 % (36-47); Lymphocytes # 3.5 10^3/uL (0.8-4.8); Lymphocytes % 34.9 %; Mean Corpuscular HGB Conc 32.5 g/dL (30-55); Mean Corpuscular Hemoglobin 28.8 pg (27-33); Mean Corpuscular Volume 88.5 fl (85-98); Mean Platelet Volume 9.3 fL (7.4-10.4); Monocytes # 0.7 10^3/uL (0.2-0.9); Monocytes % 7.4 %; Neutrophils # 5.73 10^3/uL (1.8-7.7); Neutrophils % 57.2 %; Nucleated Red Blood Cells % 0 %; Platelet Count 223 10^3/cmm (157-399); Red Blood Count 5.11 10^6/uL (3.85-5.65); Red Cell Distribution Width 12.9 % (12.1-15.1); White Blood Count 10.02 10^3/uL (3.29-11.43)
[2024-01-12 04:51] LABS: Anion Gap 17.2 (5-19); Blood Urea Nitrogen 24 mg/dL (8-23); Carbon Dioxide 22 mmol/L (22-29); Chloride 104 mmol/L (98-107); Glucose 135 mg/dL (65-115); Osmolality Calculated 294 mOsm/kg (285-295); Potassium 4.2 mmol/L (3.5-5.1); Sodium 139 mmol/L (136-145)
[2024-01-12 04:54] LABS: Creatinine Clr Calc Pharmacy 40.8714
--- NOTE | 2024-01-12 05:50 | PC.NURSE ---
PSA 1:1 sitter stated that patient wanted her to tape the mobley hole on the closet in patients room because the people in the closet are spying on me PSA also stated that patient hallucinations have escalated within the last hour. Patient has been awake this entire shift.
--- NOTE | 2024-01-12 08:28 | PC.NURSE ---
Patient took her morning medication but spit them out and is refusing to take them. Her mood is worsing, more verbal rambling and seeing things that are not there.
--- NOTE | 2024-01-12 09:30 | USCV_ITS ---
Keyona Chavarria Age: 78 Gender: F : 1945 Exam Date: 01/12/2024 20:36 Ordering Phys: Melina Ward MD Technologist: MELISSA [place] [facility] [place]: afib in [place], dementia, COPD, hx CAD, c/o weakness and cough. BP: 162 / 73 HR: 93 Rhythm: Sinus Technical Quality: Technically difficult c/o constant coughing MEASUREMENTS (Male / Female) Normal Values 2D ECHO LV Diastolic Diameter PLAX 3.2 cm 4.2 - 5.9 / 3.9 - 5.3 cm IVS Diastolic Thickness 2.4 cm 0.6 - 1.0 / 0.6 - 0.9 cm IVS Systolic Thickness 2.6 cm LVPW Diastolic Thickness 1.3 cm 0.6 - 1.0 / 0.6 - 0.9 cm LVPW Systolic Thickness 1.9 cm LVOT Diameter 1.8 cm LV Ejection Fraction 2D Teich 72.3 % LV Ejection Fraction MOD 2C 61.7 % LV Ejection Fraction 2C AL 61.7 % LA Diameter 3.4 cm Aorta at Sinotubular Diameter 2.6 cm IVC Diameter 1.2 cm M-MODE LA Ao Ratio MM 1.4 AV Cusp Separation MM 1.6 cm DOPPLER AV Peak Velocity 143.0 cm/s LVOT Peak Velocity 166.0 cm/s AV Area Cont Eq vti 3.9 cm squared AV Area Cont Eq pk 3.1 cm squared MV Peak Velocity 162.0 cm/s MV Area PHT 2.2 cm squared Mitral E to A Ratio 0.5 TV Peak E Velocity 57.0 cm/s PV Peak Velocity 171.0 cm/s FINDINGS Left Ventricle Moderate left ventricular hypertrophy. No regional wall motion abnormalities. LV ejection fraction of 62%.Grade I/IV diastolic dysfunction (abnormal relaxation filling pattern), normal to mildly elevated filling pressures. Right Ventricle The right ventricle is normal in size and function. Right Atrium The right atrium is normal in size. Left Atrium Mildly increased left atrial size. Mitral Valve Moderate mitral annular calcification. Aortic Valve Mild aortic valve regurgitation. Thickened aortic valve. Tricuspid Valve No gross abnormalities noted Pulmonic Valve No gross abnormalities noted Pericardium Normal pericardium without effusion. Aorta Normal ascending aorta dimension. IVC Normal inferior vena cava. CONCLUSIONS Moderate left ventricular hypertrophy. No regional wall motion abnormalities. LV ejection fraction of 62%.Grade I/IV diastolic dysfunction (abnormal relaxation filling pattern), normal to mildly elevated filling pressures. Mildly increased left atrial size. Mild aortic valve regurgitation. Thickened aortic valve. Moderate mitral annular calcification. There is no pericardial effusion. There are no intracardiac masses. No similar previous studies are available for comparison Dr Jarod José MD [facility] (Electronically Signed) Final Date: 13 Jan 2024 07:18 S
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
[2024-01-12] MEDS: haloperidol inj 5 mg/mL INJ 1 mL 2 MG IM (11:12)
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
--- NOTE | 2024-01-12 12:21 | PC.NURSE ---
Patient is on the phone again with 911 talking to dispatch asking them to come and get her.
--- NOTE | 2024-01-12 12:23 | PC.NURSE ---
Patient was given haldol 2mg IM, medication was pulled from the pixis prior to the order being placed in the MAR. cooking casing and drying supervisor pulled haldol and staff nurse confirmed order. Patient was then restrained and haldol 2mg IM was given.
--- NOTE | 2024-01-12 13:12 | P.PN_ITS ---
Subjective 2 Subjective: Pt agitated and aggressive today refusing medication security called family at bedside HR elevated Vitals/I&O/Wt Last Vital Signs Temp 97.8 F 01/12/24 07:19 Pulse 112 H 01/12/24 07:43 Resp 16 01/12/24 07:43 BP 150/64 01/12/24 07:19 Pulse Ox 93 01/12/24 07:43 O2 Del Method Room Air 01/12/24 07:43 O2 Flow Rate 2 01/09/24 21:38 01/11/24 01/12/24 01/12/24 22:59 06:59 14:59 Intake Total 50 / 1410 240 / 240 Output Total 0 / 0 0 / 0 Balance 50 / 1410 0 / 1410 240 / 240 Weight last 48 hrs Weight 164 lb Weight 163 lb 3.2 oz Physical Exam 2 Const: OTHER: agitated, upset HENMT: COMMON NORMALS: normocephalic HEAD & SCALP: normal to inspection and normocephalic Resp: AUSCULTATION: wheezes Cardio: RATE: tachycardic RHYTHM: abnormal rhythm GI: INSPECTION: Yes normal to inspection Neuro: SPEECH: speech normal Data 01/12/24 04:13 01/12/24 04:13 Micro: Microbiology 01/09/24 11:32 Blood Culture - Preliminary Blood Staphylococcus hominis A&P Assessment and plan (1) Urinary tract infection: abnormal UA CT negative for renal stone continue Rocephin (2) Dehydration: IVF repeat labs (3) Acute on chronic renal failure: IVF, repeat labs avoid nephrotoxic medications (4) Atrial fibrillation: with RVR TSH wnl, Mg mild elevated on oral amiodarone cardiology consultation ECHO done (5) Bacteremia: thought to be 2/2 to contaminant monitor (6) Insomnia: BID Seroquel Trazadone (7) Paranoia: history of behavioral health issues concern for psychosis consult psychiatry Attestations 2 Medical Necessity Statement*: Keyona Chavarria requires ongoing inpatient care for change in mental status Coding Level of Care Code 06242 Diagnoses Urinary tract infection N39.0 Dehydration E86.0 Acute on chronic renal failure N17.9; N18.9 Atrial fibrillation I48.91 Bacteremia R78.81 Insomnia G47.00 Paranoia F22
--- NOTE | 2024-01-12 13:26 | PC.NURSE ---
Patient is complaining that she is having a hard time breathing to the one-on-one sitter that is watching her. Nursing staff with daughter and son-in-law present was allowed to listen to her lungs. Lung sounds were clear. Patient refused all other monitoring at this time.
--- NOTE | 2024-01-12 14:19 | W.PM.PSYCONS ---
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 Plan This is a 78-year-old white female known to psychiatry from a hospitalization back in 2020 where she presented with confusion and at times psychosis at others and reports of aggressive and threatening behaviors who returns with A-fib and a reported UTI with clear psychosis and confusion and a reported diagnosis of dementia. 1. Continue current medication. Would once again consider Risperdal or Invega given past improvement reported with those medications and both of those medications having the ability to be given as injectables. 2. She could benefit from a geriatric psychiatric evaluation to explore her symptoms in an inpatient setting if symptoms do not resolve during this medical stay. 3. We will continue to follow. 4. Significant safety concerns exist with driving and possession of weapons in the home with young children that should be considered and some changes made to address those issues. 5. Recommend Josie after she has had some improvement to identify where she is functioning prior to discharge. 6. Plans moving forward for possible conservatorship should not be ignored. 7. Agree with Haldol increased to 5 mg every 6 hours IM as needed for agitation. Attestations NPU Medical Necessity Statement*: N/A. Please see primary team note for full details but again patient could benefit from a geriatric inpatient stay where she get a full evaluation with geriatric expertise if she does not have resolution of symptoms during this stay. Coding Level of Care Code Acute Code for [facility] Fwd Diagnoses Acute psychosis F23 Homicidal ideation R45.850 MDD (major depressive disorder) F32.9 Paranoia F22 Atrial fibrillation I48.91 Hypertensive crisis, unspecified I16.9 Confusion R41.0 Cognitive impairment R41.89
--- NOTE | 2024-01-12 15:31 | PC.NURSE ---
Patient refused her 1500 ceftriaxone. She said no you are trying to kill me . This is discussed with family who are sitting outside the room. They feel that it is best right now to not force this on her.
--- NOTE | 2024-01-12 18:25 | PC.NURSE ---
Dr. Baxter gave a verbal order for Haldol 5mg Q6hr PRN. Order entered.
--- NOTE | 2024-01-12 19:42 | PC.NURSE ---
Patient refused to wear telemetry during the day shift. She threw the leads on the floor everytime staff attempted to put them back on her. Patient is educated on the need for us to monitor her heart. Patient states I do not have a heart problem and I am not going to wear all these wires. If you come back in and try to put them on I will leave. Patient refused her 1800 medications. shift supervisor film processing nurse will attempt to give these medications.
[2024-01-12] MEDS: pantoprazole 40 mg SDV IVP (20:11)
[2024-01-12] MEDS: trazodone 50 mg Tablet 25 MG PO (20:11)
[2024-01-12] MEDS: apixaban 5 mg Tablet 2.5 MG PO (20:12)
[2024-01-12] MEDS: quetiapine 25 mg Tablet PO (20:12)
[2024-01-12] MEDS: amiodarone 200 mg Tablet 400 MG PO (20:12)
[2024-01-13] VITALS (7 sets, daily range): BP systolic 126–159; BP diastolic 65–85; PULSE 90–96; RESP 20–24; TEMP 36.4–36.8; O2SAT 88–95; BMI 28.1
[2024-01-13] MEDS: amiodarone 200 mg Tablet 400 MG PO ×2 (08:43→17:32)
[2024-01-13] MEDS: apixaban 5 mg Tablet 2.5 MG PO ×2 (08:43→20:12)
[2024-01-13] MEDS: atorvastatin 40 mg Tablet 20 MG PO (08:44)
[2024-01-13] MEDS: quetiapine 25 mg Tablet PO ×2 (08:44→17:32)
--- NOTE | 2024-01-13 11:21 | PC.SOCIAL ---
IMM Update Pg. 2 of IMM updated and reviewed with patient, who verbalized understanding. Copy provided.
--- NOTE | 2024-01-13 12:06 | P.PN_ITS ---
Subjective 2 Subjective: Patient mental status better. Vitals improved. psychiatry consultation completed yesterday. Vitals/I&O/Wt Last Vital Signs Temp 97.5 F L 01/13/24 11:35 Pulse 95 01/13/24 11:35 Resp 20 H 01/13/24 11:35 BP 126/65 01/13/24 11:35 Pulse Ox 91 01/13/24 11:35 O2 Del Method Room Air 01/13/24 11:35 O2 Flow Rate 2 01/09/24 21:38 01/12/24 01/13/24 01/13/24 22:59 06:59 14:59 Intake Total 740 / 980 200 / 1180 200 / 200 Output Total 400 / 400 400 / 400 Balance 340 / 580 200 / 780 -200 / -200 Weight last 48 hrs Weight 164 lb Weight 164 lb Physical Exam 2 Const: OTHER: agitated, upset HENMT: COMMON NORMALS: normocephalic HEAD & SCALP: normal to inspection and normocephalic Resp: AUSCULTATION: wheezes Cardio: RATE: tachycardic RHYTHM: abnormal rhythm GI: INSPECTION: Yes normal to inspection Neuro: SPEECH: speech normal Data 01/12/24 04:13 01/12/24 04:13 Micro: Microbiology 01/09/24 11:32 Blood Culture - Preliminary Blood Staphylococcus hominis A&P Assessment and plan (1) Urinary tract infection: abnormal UA CT negative for renal stone continue Rocephin (2) Dehydration: resolved (3) Acute on chronic renal failure: improved avoid nephrotoxic medications (4) Atrial fibrillation: with RVR TSH wnl, Mg stable BP better on oral amiodarone cardiology consultation ECHO done (5) Bacteremia: thought to be 2/2 to contaminant monitor (6) Insomnia: BID Seroquel Trazadone (7) Paranoia: history of behavioral health issues concern for psychosis consult psychiatry , appreciate recs PRN Haldol consider Risperdal or Invega Attestations 2 Medical Necessity Statement*: Keyona Chavarria requires ongoing inpatient care for heart care, psychiatric issues Coding Level of Care Code 15997 Diagnoses Urinary tract infection N39.0 Dehydration E86.0 Acute on chronic renal failure N17.9; N18.9 Atrial fibrillation I48.91 Bacteremia R78.81 Insomnia G47.00 Paranoia F22
[2024-01-13 12:25] LABS: Methicillin-Resist S.aureu PCR NOT DETECTED (NOT DETECTED)
[2024-01-13] MEDS: cefTRIAXone 1,000 MG in sodium chloride 0.9% (plus) 50 ML 100 MG IV (16:13)
--- NOTE | 2024-01-13 16:29 | PC.NURSE ---
Shift Note Frequent safety and comfort rounds continue. Orders and/or nursing care completed as indicated. Patient monitored for response to intervention and treatment(s). Education provided includes medications, antibiotic treatment, and expected outcomes. Patient and/or player services representative verbalizes understanding however, may need reinforcement. Will continue to monitor.
--- NOTE | 2024-01-13 17:41 | P.NPUPN_ITS ---
Subjective NPU 2 Subjective: Patient presents today continuing to be distracted with her conspiracies. We discussed considering medication which she was unsure of what she wanted to do. Discussed likely need for geriatric psychiatry inpatient bed. Discussed her daughter being guardian which she was not clear of. Mental Status Exam 2 MSE Comments: This is a obese elderly white female in a hospital gown with limited grooming but adequate eye contact. No abnormal movements except for mild psychomotor retardation. Mostly uncooperative with exam in no acute distress. Speech was normal rate and volume. Mood described as fine affect congruent but confused at times. Thought process linear but at times disorganized, thought content: Patient denied suicidal or homicidal ideation, there were no delusions reported but clear delusional and conspiratorial he thinking noted, auditory and visual hallucinations have been reported but she denies today. Attention and concentration appeared intact and memory was mostly unreliable. She is alert and oriented to person and place. Insight and judgment are impaired and impulse control is impaired. Vitals/I&O/Wt Last Vital Signs Temp 97.9 F 01/13/24 20:53 Pulse 96 01/13/24 20:53 Resp 20 H 01/13/24 16:00 BP 129/74 01/13/24 20:53 Pulse Ox 92 01/13/24 20:53 O2 Del Method Room Air 01/13/24 20:53 O2 Flow Rate 2 01/09/24 21:38 01/13/24 01/13/24 01/14/24 14:59 22:59 06:59 Intake Total 680 / 680 50 / 730 Output Total 400 / 400 Balance 280 / 280 50 / 330 Weight last 48 hrs Weight 74.106 kg Weight 74.389 kg Data NPU 01/12/24 04:13 01/12/24 04:13 A&P Assessment and plan (1) Acute psychosis: (2) Homicidal ideation: (3) MDD (major depressive disorder): (4) Paranoia: (5) Atrial fibrillation: (6) Hypertensive crisis, unspecified: (7) Confusion: (8) Cognitive impairment: Plan This is a 78-year-old white female known to psychiatry from a hospitalization back in 2020 where she presented with confusion and at times psychosis at others and reports of aggressive and threatening behaviors who returns with A-fib and a reported UTI with clear psychosis and confusion and a reported diagnosis of dementia. 1. Continue current medication. Would once again consider Risperdal or Invega given past improvement reported with those medications and both of those medications having the ability to be given as injectables. 2. She could benefit from a geriatric psychiatric evaluation to explore her symptoms in an inpatient setting if symptoms do not resolve during this medical stay. 3. We will continue to follow. 4. Significant safety concerns exist with driving and possession of weapons in the home with young children that should be considered and some changes made to address those issues. 5. Recommend Josie after she has had some improvement to identify where she is functioning prior to discharge. 6. Plans moving forward for possible conservatorship should not be ignored. 7. Agree with Haldol increased to 5 mg every 6 hours IM as needed for agitation. Attestations NPU 2 Medical Necessity Statement*: N/A. Please see primary team note for full details but again patient could benefit from a geriatric inpatient stay where she get a full evaluation with geriatric expertise if she does not have resolution of symptoms during this stay. Coding Level of Care Code Acute Code for [facility] Fwd Diagnoses Acute psychosis F23 Homicidal ideation R45.850 MDD (major depressive disorder) F32.9 Paranoia F22 Atrial fibrillation I48.91 Hypertensive crisis, unspecified I16.9 Confusion R41.0 Cognitive impairment R41.89
[2024-01-13] MEDS: pantoprazole 40 mg SDV IVP (20:12)
[2024-01-13] MEDS: trazodone 50 mg Tablet 25 MG PO (20:12)
[2024-01-14] VITALS (8 sets, daily range): BP systolic 116–133; BP diastolic 59–74; PULSE 72–101; RESP 18–23; TEMP 36.4–36.6; O2SAT 92–93; BMI 28.0
[2024-01-14] MEDS: apixaban 5 mg Tablet 2.5 MG PO ×2 (08:22→20:37)
[2024-01-14] MEDS: quetiapine 25 mg Tablet PO ×2 (08:22→18:32)
[2024-01-14] MEDS: atorvastatin 40 mg Tablet 20 MG PO (08:22)
[2024-01-14] MEDS: amiodarone 200 mg Tablet 400 MG PO ×2 (08:22→18:32)
--- NOTE | 2024-01-14 11:55 | P.PN_ITS ---
Subjective 2 Subjective: 78[facility] of fatigue weakness as well as arthralgias. She was also noted to have some dehydration. She was also noted to have a urinary tract infection concern for A-fib with RVR. Her blood pressure was soft. Cardiology was consulted. Her hospitalization has been complicated with psychosis. Psychiatry was consulted. This morning she is having auditory hallucinations. Her behavior is redirectable. She does report some back discomfort. Reports sleeping okay Vitals/I&O/Wt Last Vital Signs Temp 97.6 F 01/14/24 08:00 Pulse 101 H 01/14/24 08:00 Resp 23 H 01/14/24 08:00 BP 116/70 01/14/24 08:00 Pulse Ox 93 01/14/24 06:59 O2 Del Method Room Air 01/14/24 06:59 O2 Flow Rate 2 01/09/24 21:38 01/13/24 01/14/24 01/14/24 22:59 06:59 14:59 Intake Total 50 / 730 240 / 240 Balance 50 / 330 240 / 240 Weight last 48 hrs Weight 163 lb 6 oz Weight 164 lb Physical Exam 2 Const: OTHER: Hearing voices, not in acute distress HENMT: COMMON NORMALS: normocephalic HEAD & SCALP: normal to inspection and normocephalic Resp: AUSCULTATION: wheezes Cardio: RATE: tachycardic RHYTHM: abnormal rhythm GI: INSPECTION: Yes normal to inspection Neuro: SPEECH: speech normal Data 01/12/24 04:13 01/12/24 04:13 Micro: Microbiology 01/09/24 11:28 Blood Culture - Final Blood NO GROWTH AFTER 5 DAYS A&P Assessment and plan (1) Urinary tract infection: abnormal UA CT negative for renal stone continue Rocephin, plan to stop 01/14 (2) Dehydration: resolved (3) Acute on chronic renal failure: improved avoid nephrotoxic medications (4) Atrial fibrillation: with RVR TSH wnl, Mg stable BP better on oral amiodarone cardiology consultation ECHO done (5) Bacteremia: thought to be 2/2 to contaminant monitor (6) Insomnia: BID Seroquel Trazadone (7) Paranoia: history of behavioral health issues concern for psychosis consult psychiatry , appreciate recs PRN Haldol consider Risperdal or Invega per Attestations 2 Medical Necessity Statement*: Keyona Chavarria requires ongoing inpatient care for monitoring mental health, and cardiac status. Coding Level of Care Code 63840 Diagnoses Urinary tract infection N39.0 Dehydration E86.0 Acute on chronic renal failure N17.9; N18.9 Atrial fibrillation I48.91 Bacteremia R78.81 Insomnia G47.00 Paranoia F22
[2024-01-14] MEDS: tizanidine 4 mg Tablet PO (16:03)
[2024-01-14] MEDS: cefTRIAXone 1,000 MG in sodium chloride 0.9% (plus) 50 ML 100 MG IV (16:03)
--- NOTE | 2024-01-14 19:12 | P.NPUPN_ITS ---
Subjective NPU 2 Subjective: Patient presented today reporting that she has been doing fine. Staff reports that she has been sleeping a lot since the Haldol was given a couple days ago. She was easily arousable and open to dialogue. She acknowledged that she does keep knives in her bed at home for safety. When asked the purpose of said knives she reported that she was protecting herself against Christine projections. She was specifically that Ld Mijares, Natali Sanchez and Elizabeth Songe christine project into her home and area. She advised this customs entry writer that he has an Christine projection capacity. When asked how Denis would or could protect the person that gets actual projections. He reported that if the individual projecting his Allied and that as show projection can be cut and injured, thus the use of the knives. She reported that people there Christine projections could not be cut by a physical object. Mental Status Exam 2 MSE Comments: This is a obese elderly white female in a hospital gown with limited grooming but adequate eye contact. No abnormal movements except for mild psychomotor retardation. Mostly uncooperative with exam in no acute distress. Speech was normal rate and volume. Mood described as fine affect congruent but confused at times. Thought process linear but at times disorganized, thought content: Patient denied suicidal or homicidal ideation, there were no delusions reported but clear delusional and conspiratorial he thinking noted, auditory and visual hallucinations have been reported but she denies today. Attention and concentration appeared intact and memory was mostly unreliable. She is alert and oriented to person and place. Insight and judgment are impaired and impulse control is impaired. Vitals/I&O/Wt Last Vital Signs Temp 97.9 F 01/14/24 19:56 Pulse 72 01/14/24 19:56 Resp 19 H 01/14/24 19:56 BP 126/59 01/14/24 19:56 Pulse Ox 92 01/14/24 19:56 O2 Del Method Room Air 01/14/24 19:56 O2 Flow Rate 2 01/09/24 21:38 01/14/24 01/14/24 01/15/24 14:59 22:59 06:59 Intake Total 480 / 480 290 / 770 Balance 480 / 480 290 / 770 Weight last 48 hrs Weight 74.106 kg Weight 74.389 kg Data NPU 01/12/24 04:13 01/12/24 04:13 Micro: Microbiology 01/09/24 11:28 Blood Culture - Final Blood NO GROWTH AFTER 5 DAYS Microbiology 01/09/24 11:28 Blood Blood Culture - Final NO GROWTH AFTER 5 DAYS A&P Assessment and plan (1) Acute psychosis: (2) Homicidal ideation: (3) MDD (major depressive disorder): (4) Paranoia: (5) Atrial fibrillation: (6) Hypertensive crisis, unspecified: (7) Confusion: (8) Cognitive impairment: Plan This is a 78-year-old white female known to psychiatry from a hospitalization back in 2020 where she presented with confusion and at times psychosis at others and reports of aggressive and threatening behaviors who returns with A-fib and a reported UTI with clear psychosis and confusion and a reported diagnosis of dementia. 1. Continue current medication. Would once again consider Risperdal or Invega given past improvement reported with those medications and both of those medications having the ability to be given as injectables. 2. She could benefit from a geriatric psychiatric evaluation to explore her symptoms in an inpatient setting if symptoms do not resolve during this medical stay. 3. We will continue to follow. 4. Significant safety concerns exist with driving and possession of weapons in the home with young children that should be considered and some changes made to address those issues. 5. Recommend Josie after she has had some improvement to identify where she is functioning prior to discharge. 6. Plans moving forward for possible conservatorship should not be ignored. 7. Agree with Haldol increased to 5 mg every 6 hours IM as needed for agitation. Attestations NPU 2 Medical Necessity Statement*: N/A. Please see primary team note for full details but again patient could benefit from a geriatric inpatient stay where she get a full evaluation with geriatric expertise if she does not have resolution of symptoms during this stay. Coding Level of Care Code Acute Code for [facility] Fwd Diagnoses Acute psychosis F23 Homicidal ideation R45.850 MDD (major depressive disorder) F32.9 Paranoia F22 Atrial fibrillation I48.91 Hypertensive crisis, unspecified I16.9 Confusion R41.0 Cognitive impairment R41.89
[2024-01-14] MEDS: trazodone 50 mg Tablet 25 MG PO (20:37)
[2024-01-14] MEDS: pantoprazole 40 mg SDV IVP (20:37)
[2024-01-15] VITALS (8 sets, daily range): BP systolic 133–148; BP diastolic 67–81; PULSE 28–84; RESP 18–20; TEMP 36.6–37; O2SAT 90–97
[2024-01-15] MEDS: acetaminophen 325 mg Tablet 650 MG PO (01:30)
[2024-01-15 05:13] LABS: Basophils % 0.2 %; Eosinophils # 0.2 10^3/uL (0.0-0.8); Eosinophils % 1.9 %; Hematocrit 42.6 % (36-47); Lymphocytes # 3.1 10^3/uL (0.8-4.8); Lymphocytes % 37.2 %; Mean Corpuscular HGB Conc 33.1 g/dL (30-55); Mean Corpuscular Hemoglobin 29.1 pg (27-33); Mean Corpuscular Volume 87.8 fl (85-98); Mean Platelet Volume 9.4 fL (7.4-10.4); Monocytes # 0.9 10^3/uL (0.2-0.9); Monocytes % 10.2 %; Neutrophils # 4.19 10^3/uL (1.8-7.7); Neutrophils % 50.1 %; Nucleated Red Blood Cells % 0 %; Platelet Count 228 10^3/cmm (157-399); Red Blood Count 4.85 10^6/uL (3.85-5.65); Red Cell Distribution Width 12.8 % (12.1-15.1); White Blood Count 8.36 10^3/uL (3.29-11.43)
[2024-01-15 05:43] LABS: Alanine Aminotransferase 21 U/L (0-33); Albumin Level 3.3 g/dL (3.5-5.2); Alkaline Phosphatase 65 U/L (35-105); Aspartate Amino Transferase 18 U/L (0-32); Blood Urea Nitrogen 17 mg/dL (8-23); Calcium 8.8 mg/dL (8.5-10.5); Carbon Dioxide 25 mmol/L (22-29); Chloride 102 mmol/L (98-107); Globulin 2.7 g/dL (1.3-4.6); Glucose 98 mg/dL (65-115); Lipase 60 U/L (13-60); Osmolality Calculated 286 mOsm/kg (285-295); Sodium 137 mmol/L (136-145); Total Bilirubin 0.4 mg/dL (0.15-1.2)
[2024-01-15 05:47] LABS: Creatinine Clr Calc Pharmacy 37.3349
[2024-01-15] MEDS: quetiapine 25 mg Tablet PO (07:52)
[2024-01-15] MEDS: apixaban 5 mg Tablet 2.5 MG PO ×2 (07:52→21:47)
[2024-01-15] MEDS: atorvastatin 40 mg Tablet 20 MG PO (07:52)
[2024-01-15] MEDS: amiodarone 200 mg Tablet 400 MG PO ×2 (07:53→21:47)
[2024-01-15] MEDS: ipratropium-albuterol 3 mL Neb INHALATION (11:35)
--- NOTE | 2024-01-15 15:00 | P.NPUPN_ITS ---
Subjective NPU 2 Subjective: Patient presented today reporting that she is doing fine and in charge of this process. Staff presented for evaluation via the Josie and she refused to do the evaluation. We discussed our needs to do this to get a better sense of her functioning and she reported that she had every right to refuse. She denied any side effects to the medication and reported wanting to go home. Mental Status Exam 2 MSE Comments: This is a obese elderly white female in a hospital gown with limited grooming but adequate eye contact. No abnormal movements except for mild psychomotor retardation. Mostly uncooperative with exam in no acute distress. Speech was normal rate and volume. Mood described as fine affect irritable. Thought process linear but at times disorganized, thought content: Patient denied suicidal or homicidal ideation, there were no delusions reported but clear delusional and conspiratorial he thinking noted, auditory and visual hallucinations have been reported but she denies today. Attention and concentration appeared intact and memory was mostly unreliable. She is alert and oriented to person and place. Insight and judgment are impaired and impulse control is impaired. Vitals/I&O/Wt Last Vital Signs Temp 97.8 F 01/15/24 12:00 Pulse 71 01/15/24 12:00 Resp 18 01/15/24 11:38 BP 144/67 01/15/24 12:00 Pulse Ox 91 01/15/24 12:00 O2 Del Method Room Air 01/15/24 12:00 O2 Flow Rate 2 01/09/24 21:38 01/15/24 01/15/24 01/15/24 06:59 14:59 22:59 Intake Total 600 / 1370 240 / 240 Balance 600 / 1370 240 / 240 Weight last 48 hrs Weight 73.482 kg Weight 74.106 kg Data NPU 01/15/24 04:14 01/15/24 04:14 Micro: Microbiology 01/09/24 11:28 Blood Culture - Final Blood NO GROWTH AFTER 5 DAYS Microbiology 01/09/24 11:28 Blood Blood Culture - Final NO GROWTH AFTER 5 DAYS A&P Assessment and plan (1) Acute psychosis: (2) Homicidal ideation: (3) MDD (major depressive disorder): (4) Paranoia: (5) Atrial fibrillation: (6) Hypertensive crisis, unspecified: (7) Confusion: (8) Cognitive impairment: Plan This is a 78-year-old white female known to psychiatry from a hospitalization back in 2020 where she presented with confusion and at times psychosis at others and reports of aggressive and threatening behaviors who returns with A-fib and a reported UTI with clear psychosis and confusion and a reported diagnosis of dementia. 1. Continue current medication. Discontinue Seroquel. Start Zyprexa 2.5 mg p.o. nightly. Additionally discontinue Haldol as needed and start Zyprexa as needed p.o. and IM. 2. She could benefit from a geriatric psychiatric evaluation to explore her symptoms in an acute inpatient setting. 3. We will continue to follow. 4. Significant safety concerns exist with driving and possession of weapons in the home with young children that should be considered and some changes made to address those issues. 5. Recommend Josie after she has had some improvement to identify where she is functioning prior to discharge. 6. Plans moving forward for possible conservatorship should not be ignored. Attestations NPU 2 Medical Necessity Statement*: N/A. Please see primary team note for full details but again patient could benefit from a geriatric inpatient stay where she get a full evaluation with geriatric expertise. Coding Level of Care Code Acute Code for [facility] Fwd Diagnoses Acute psychosis F23 Homicidal ideation R45.850 MDD (major depressive disorder) F32.9 Paranoia F22 Atrial fibrillation I48.91 Hypertensive crisis, unspecified I16.9 Confusion R41.0 Cognitive impairment R41.89
--- NOTE | 2024-01-15 15:05 | P.PN_ITS ---
Subjective 2 Subjective: Patient overall seems to be comfortable today. She still obviously confused. Still having some hallucinations. No fevers or chills. No chest pain or shortness of breath. Psych is recommending we add Risperdal to her regimen. No fevers or chills. Medications: Reviewed: Yes Medication Review Details: Current Medications Acetaminophen (Acetaminophen 325 Mg Tablet) 650 mg PO Q6H PRN PRN Reason: Mild/Mod Pain Or Temp >/= 101 Last Admin: 01/15/24 01:30 Dose: 650 mg Albuterol/Ipratropium (Ipratropium-Albuterol 3 Ml Neb) 3 ml INHALATION Q6H.RESP PRN PRN Reason: SHORTNESS OF BREATH Last Admin: 01/15/24 11:35 Dose: 3 ml Amiodarone HCl (Amiodarone 200 Mg Tablet) 400 mg PO BID [facility] Last Admin: 01/15/24 07:53 Dose: 400 mg Apixaban (Apixaban 5 Mg Tablet) 2.5 mg PO BID@0900,2100 [facility] Last Admin: 01/15/24 07:52 Dose: 2.5 mg Atorvastatin Calcium (Atorvastatin 40 Mg Tablet) 20 mg PO DAILY [facility] Last Admin: 01/15/24 07:52 Dose: 20 mg Ceftriaxone Sodium 1,000 mg/ (Sodium Chloride) 50 mls @ 100 mls/hr IV 1500 [facility]; Protocol Last Infusion: 01/14/24 16:47 Dose: Infused Amiodarone HCl/Dextrose (Nexterone) 360 mg in 200 mls @ 0 mls/hr IV .Q0M [facility]; Protocol Last Titration: 01/11/24 05:41 Dose: Infused Lanolin (Lanolin Oint 7 Gm) 1 applic TOPICAL PRN PRN PRN Reason: DRYNESS Nystatin (Nystatin Powder 15 Gm Btl) 1 applic TOPICAL BID [facility] Last Admin: 01/15/24 07:53 Dose: Not Given Olanzapine (Olanzapine 5 Mg Tablet) 2.5 mg PO BEDTIME [facility] Olanzapine (Olanzapine 10 Mg Vial) 5 mg IM Q6H PRN PRN Reason: SEVERE AGITATION Olanzapine (Olanzapine 5 Mg Tablet) 2.5 mg PO TID PRN PRN Reason: AGITATION Ondansetron HCl (Ondansetron 2 Mg/Ml Sdv 2 Ml) 4 mg IVP Q8H PRN PRN Reason: vomiting, or N/V if npo Pantoprazole Sodium (Pantoprazole 40 Mg Sdv) 40 mg IVP Q24H [facility] Last Admin: 01/14/24 20:37 Dose: 40 mg Risperidone (Risperidone 0.25 Mg Tablet) 0.25 mg PO BID [facility] Tizanidine HCl (Tizanidine 4 Mg Tablet) 4 mg PO ONCE [facility] Last Admin: 01/14/24 16:03 Dose: 4 mg Trazodone HCl (Trazodone 50 Mg Tablet) 25 mg PO BEDTIME [facility] Last Admin: 01/14/24 20:37 Dose: 25 mg Vitals/I&O/Wt Last Vital Signs Temp 97.8 F 01/15/24 12:00 Pulse 71 01/15/24 12:00 Resp 18 01/15/24 11:38 BP 144/67 01/15/24 12:00 Pulse Ox 91 01/15/24 12:00 O2 Del Method Room Air 01/15/24 12:00 O2 Flow Rate 2 01/09/24 21:38 01/15/24 01/15/24 01/15/24 06:59 14:59 22:59 Intake Total 600 / 1370 240 / 240 Balance 600 / 1370 240 / 240 Weight last 48 hrs Weight 162 lb Weight 163 lb 6 oz Physical Exam 2 Narrative: General: No acute distress, Alert. Well nourished. Heart: Regular rate and rhythm. No murmurs, rubs or gallops. Normal capillary refill. Lungs: Clear to auscultation. No wheezes, rhonchi or rales. Abdomen: Positive bowel sounds. Non-tender, non-distended. No hepatosplenomegaly. No gaurding. Extremities: No clubbing, cyanosis, or edema. Negative Cade's Data 01/15/24 04:14 01/15/24 04:14 Micro: Microbiology 01/09/24 11:28 Blood Culture - Final Blood NO GROWTH AFTER 5 DAYS A&P Assessment and plan (1) Acute psychosis: This continues to be a problem for her. We will add Risperdal per psych recommendations. Awaiting placement in [facility]. (2) Paranoia: Same as above. (3) Hypertensive crisis, unspecified: This has resolved. (4) Acute on chronic renal failure: Overall this is improved but creatinine is still little bit elevated at 1.2. (5) Urinary tract infection: Appears to be resolved. Stopping antibiotics today. Attestations 2 Medical Necessity Statement*: Patient has acute medical problems and acute psychosis requiring placement in a [facility] unit. We are currently waiting on that placement. Coding Level of Care Code Acute Code for [facility] Fwd Diagnoses Acute psychosis F23 Paranoia F22 Hypertensive crisis, unspecified I16.9 Acute on chronic renal failure N17.9; N18.9 Urinary tract infection N39.0
[2024-01-15] MEDS: OLANZapine 5 mg TABLET 2.5 MG PO (15:10)
[2024-01-15] MEDS: ondansetron 2 mg/ML SDV 2 mL 4 MG IVP (15:10)
[2024-01-15] MEDS: cefTRIAXone 1,000 MG in sodium chloride 0.9% (plus) 50 ML 100 MG IV (15:10)
--- NOTE | 2024-01-15 16:18 | PC.OT ---
Attempted OT TREY eval with pt declining and becoming agitated. Pt states I don't need a stupid test that will make me feel stupid. Will attempt again at later time.
--- NOTE | 2024-01-15 17:50 | PC.NURSE ---
Keyona is refusing her medications at this time. She said that she would rather sleep at this time. This nurse will report this to scene shifter so they may try again.
[2024-01-15] MEDS: trazodone 50 mg Tablet 25 MG PO (21:46)
[2024-01-15] MEDS: risperiDONE 0.25 mg Tablet PO (21:47)
[2024-01-15] MEDS: pantoprazole 40 mg SDV IVP (21:48)
[2024-01-16] MEDS: ondansetron 2 mg/ML SDV 2 mL 4 MG IVP (01:50)
--- NOTE | 2024-01-16 06:50 | PC.NURSE ---
patient refused telemetry and vitals
[2024-01-16] MEDS: apixaban 5 mg Tablet 2.5 MG PO ×2 (07:58→20:20)
[2024-01-16] MEDS: amiodarone 200 mg Tablet 400 MG PO ×2 (07:58→17:05)
[2024-01-16] MEDS: risperiDONE 0.25 mg Tablet PO ×2 (07:58→17:05)
[2024-01-16] MEDS: atorvastatin 40 mg Tablet 20 MG PO (07:58)
--- NOTE | 2024-01-16 08:22 | P.NPUPN_ITS ---
Subjective NPU 2 Subjective: Patient presents today reporting that she is doing fine with continued reports of psychosis. She continues to be resistant to examination and recommendations. She is taking medication as prescribed. She denied any side effects to medication but did appear tired per staff reports and direct observation. Mental Status Exam 2 MSE Comments: This is a obese elderly white female in a hospital gown with limited grooming but adequate eye contact. No abnormal movements except for mild psychomotor retardation. Mostly uncooperative with exam in no acute distress. Speech was normal rate and volume. Mood described as fine affect irritable. Thought process linear but at times disorganized, thought content: Patient denied suicidal or homicidal ideation, there were no delusions reported but clear delusional and conspiratorial he thinking noted, auditory and visual hallucinations have been reported but she denies today. Attention and concentration appeared intact and memory was mostly unreliable. She is alert and oriented to person and place. Insight and judgment are impaired and impulse control is impaired. Vitals/I&O/Wt Last Vital Signs Temp 98.4 F 01/15/24 16:00 Pulse 84 01/15/24 16:00 Resp 18 01/15/24 11:38 BP 141/81 01/15/24 16:00 Pulse Ox 90 01/15/24 15:59 O2 Del Method Room Air 01/15/24 15:59 O2 Flow Rate 2 01/09/24 21:38 01/15/24 01/16/24 01/16/24 22:59 06:59 14:59 Intake Total 250 / 490 Balance 250 / 490 Weight last 48 hrs Weight 73.482 kg Data NPU 01/17/24 03:23 01/17/24 03:23 Micro: Microbiology 01/09/24 11:32 Blood Culture - Final Blood Staphylococcus hominis Microbiology 01/09/24 11:32 Blood Blood Culture - Final Staphylococcus hominis A&P Assessment and plan (1) Acute psychosis: (2) Homicidal ideation: (3) MDD (major depressive disorder): (4) Paranoia: (5) Atrial fibrillation: (6) Hypertensive crisis, unspecified: (7) Confusion: (8) Cognitive impairment: Plan This is a 78-year-old white female known to psychiatry from a hospitalization back in 2020 where she presented with confusion and at times psychosis at others and reports of aggressive and threatening behaviors who returns with A-fib and a reported UTI with clear psychosis and confusion and a reported diagnosis of dementia. 1. Continue current medication. Discontinue Seroquel. Start Zyprexa 2.5 mg p.o. nightly. Additionally discontinue Haldol as needed and start Zyprexa as needed p.o. and IM. Recommend discontinuation of vet is resolved and increase of Zyprexa 2.5 mg p.o. twice daily. 2. She could benefit from a geriatric psychiatric evaluation to explore her symptoms in an acute inpatient setting. 3. We will continue to follow. 4. Significant safety concerns exist with driving and possession of weapons in the home with young children that should be considered and some changes made to address those issues. 5. Recommend Josie after she has had some improvement to identify where she is functioning prior to discharge. 6. Plans moving forward for possible conservatorship should not be ignored. Attestations NPU 2 Medical Necessity Statement*: N/A. Please see primary team note for full details but again patient could benefit from a geriatric inpatient stay where she get a full evaluation with geriatric expertise. Coding Level of Care Code Acute Code for Chg Fwd Diagnoses Acute psychosis F23 Homicidal ideation R45.850 MDD (major depressive disorder) F32.9 Paranoia F22 Atrial fibrillation I48.91 Hypertensive crisis, unspecified I16.9 Confusion R41.0 Cognitive impairment R41.89
[2024-01-16 09:38] VITALS: PULSE 85; RESP 18; O2SAT 91
--- NOTE | 2024-01-16 11:41 | PC.OT ---
Patient refused to perform TREY. OT did not press patient to perform.
--- NOTE | 2024-01-16 12:36 | P.PN_ITS ---
Subjective 2 Subjective: The patient has been stable since yesterday. She continues to have hallucinations and has had to have a sitter to prevent her from having problems. She currently denies any chest pains or other problems. Vitals/I&O/Wt Last Vital Signs Temp 98.4 F 01/15/24 16:00 Pulse 85 01/16/24 09:38 Resp 18 01/16/24 09:38 BP 141/81 01/15/24 16:00 Pulse Ox 91 01/16/24 09:38 O2 Del Method Room Air 01/16/24 09:38 O2 Flow Rate 2 01/09/24 21:38 01/15/24 01/16/24 01/16/24 22:59 06:59 14:59 Intake Total 250 / 490 Balance 250 / 490 Weight last 48 hrs Weight 162 lb Physical Exam 2 Narrative: General: Alert, not oriented to time or place. Talking to herself and occasionally interacting with me. Mouth: No erythema or tonsilar enlargement. No masses noted. Neck: No thyromegaly. No lymphadenopathy. Heart: Regular rate and rhythm. No murmurs. Lungs: Decreased air entry bilaterally with mild to moderate bilateral wheezes without significant crackles or rhonchi. Abdomen: Soft, non-tender. No hepatosplenomegaly. Extremities: No pitting edema. Psych: Patient talking to herself. She is difficult to understand and her words frequently do not form complete sentences. Data 01/15/24 04:14 01/15/24 04:14 Micro: Microbiology 01/09/24 11:32 Blood Culture - Final Blood Staphylococcus hominis A&P Assessment and plan (1) Acute psychosis: The patient continues to have delusional thinking and is hallucinating. She had homicidal ideation and was started on Risperdal. I have not seen a significant improvement yet. We are currently awaiting placement at geriatric psychiatry. (2) Homicidal ideation: (3) Acute on chronic renal failure: The patient's creatinine has increased slightly to 1.2. This is a slight increase, however still at her baseline. Continue with current medications. (4) Urinary tract infection: Resolved at this time. Attestations 2 Medical Necessity Statement*: The patient will be here for greater than 2 midnights due to treatment of her psychosis and acute on chronic renal failure. The patient will be transferred to geriatric psychiatry once a bed is available. Coding Level of Care Code Acute Code for Chg Fwd Diagnoses Acute psychosis F23 Homicidal ideation R45.850 Acute on chronic renal failure N17.9; N18.9 Urinary tract infection N39.0
[2024-01-16] MEDS: cefTRIAXone 1,000 MG in sodium chloride 0.9% (plus) 50 ML 100 MG IV (14:29)
[2024-01-16] MEDS: pantoprazole 40 mg SDV IVP (20:20)
[2024-01-16] MEDS: OLANZapine 5 mg TABLET 2.5 MG PO (20:21)
[2024-01-16] MEDS: trazodone 50 mg Tablet 25 MG PO (20:21)
[2024-01-16 21:53] VITALS: BP 136/65; PULSE 101; RESP 18; O2SAT 97
[2024-01-17] VITALS (7 sets, daily range): BP systolic 108–132; BP diastolic 49–64; PULSE 58–96; RESP 16; TEMP 36.7–37.1; O2SAT 82–95
[2024-01-17 04:17] LABS: Basophils % 0.1 %; Eosinophils % 0.1 %; Hematocrit 45.8 % (36-47); Lymphocytes # 0.8 10^3/uL (0.8-4.8); Lymphocytes % 11.7 %; Mean Corpuscular HGB Conc 31.2 g/dL (30-55); Mean Corpuscular Hemoglobin 29.2 pg (27-33); Mean Corpuscular Volume 93.5 fl (85-98); Mean Platelet Volume 8.9 fL (7.4-10.4); Monocytes # 1.3 10^3/uL (0.2-0.9); Monocytes % 18.5 %; Neutrophils # 4.71 10^3/uL (1.8-7.7); Neutrophils % 69.2 %; Nucleated Red Blood Cells % 0 %; Platelet Count 260 10^3/cmm (157-399); Red Cell Distribution Width 13.3 % (12.1-15.1); White Blood Count 6.82 10^3/uL (3.29-11.43)
[2024-01-17 04:38] LABS: Alanine Aminotransferase 26 U/L (0-33); Albumin Level 3.6 g/dL (3.5-5.2); Alkaline Phosphatase 60 U/L (35-105); Anion Gap 12.2 (5-19); Aspartate Amino Transferase 30 U/L (0-32); Blood Urea Nitrogen 22 mg/dL (8-23); Calcium 8.1 mg/dL (8.5-10.5); Carbon Dioxide 27 mmol/L (22-29); Chloride 103 mmol/L (98-107); Globulin 2.9 g/dL (1.3-4.6); Glucose 85 mg/dL (65-115); Osmolality Calculated 289 mOsm/kg (285-295); Potassium 4.2 mmol/L (3.5-5.1); Sodium 138 mmol/L (136-145); Total Bilirubin 0.2 mg/dL (0.15-1.2); Total Protein 6.5 g/dL (6.6-8.7)
--- NOTE | 2024-01-17 06:56 | P.NPUPN_ITS ---
Subjective NPU 2 Subjective: Patient presented today reporting that she is feeling better. She then started reporting that she was feeling worse. She endorsed seeing Timoteo de la torre's Jay projection around the room today. She spoke about what the projections were trying to do. When asked about previous and other Jya projections, she reported there were not any right now but then began speaking about each of our projections. She denied any side effects to the medication. Mental Status Exam 2 MSE Comments: This is a obese elderly white female in a hospital gown with limited grooming but adequate eye contact. No abnormal movements except for mild psychomotor retardation. Mostly uncooperative with exam in no acute distress. Speech was normal rate and volume. Mood described as fine affect irritable. Thought process linear but at times disorganized, thought content: Patient denied suicidal or homicidal ideation, there were no delusions reported but clear delusional and conspiratorial he thinking noted, auditory and visual hallucinations have been reported but she denies today. Attention and concentration appeared intact and memory was mostly unreliable. She is alert and oriented to person and place. Insight and judgment are impaired and impulse control is impaired. Vitals/I&O/Wt Last Vital Signs Temp 98.4 F 01/15/24 16:00 Pulse 96 01/17/24 03:26 Resp 16 01/17/24 03:26 BP 110/64 01/17/24 03:26 Pulse Ox 97 01/16/24 21:53 O2 Del Method Room Air 01/16/24 21:53 O2 Flow Rate 2 01/09/24 21:38 01/16/24 01/16/24 01/17/24 14:59 22:59 06:59 Intake Total 250 / 250 100 / 350 Output Total 300 / 300 Balance 250 / 250 -200 / 50 Weight last 48 hrs Weight 72.393 kg Data NPU 01/18/24 02:44 01/18/24 02:44 A&P Assessment and plan (1) Acute psychosis: (2) Homicidal ideation: (3) MDD (major depressive disorder): (4) Paranoia: (5) Atrial fibrillation: (6) Hypertensive crisis, unspecified: (7) Confusion: (8) Cognitive impairment: Plan This is a 78-year-old white female known to psychiatry from a hospitalization back in 2020 where she presented with confusion and at times psychosis at others and reports of aggressive and threatening behaviors who returns with A-fib and a reported UTI with clear psychosis and confusion and a reported diagnosis of dementia. 1. Continue current medication. Discontinue Seroquel. Start Zyprexa 2.5 mg p.o. nightly. Additionally discontinue Haldol as needed and start Zyprexa as needed p.o. and IM. Discontinue risperidone and increase of Zyprexa 2.5 mg p.o. twice daily. 2. She could benefit from a geriatric psychiatric evaluation to explore her symptoms in an acute inpatient setting. 3. We will continue to follow. 4. Significant safety concerns exist with driving and possession of weapons in the home with young children that should be considered and some changes made to address those issues. 5. Recommend Josie after she has had some improvement to identify where she is functioning prior to discharge. 6. Plans moving forward for possible conservatorship should not be ignored. Attestations NPU 2 Medical Necessity Statement*: N/A. Please see primary team note for full details but again patient could benefit from a geriatric inpatient stay where she get a full evaluation with geriatric expertise. Coding Level of Care Code Acute Code for Chg Fwd Diagnoses Acute psychosis F23 Homicidal ideation R45.850 MDD (major depressive disorder) F32.9 Paranoia F22 Atrial fibrillation I48.91 Hypertensive crisis, unspecified I16.9 Confusion R41.0 Cognitive impairment R41.89
--- NOTE | 2024-01-17 07:03 | PC.NURSE ---
Patient with auditory and visual hallucination, states she sees spirits all around her, who tell her to do things she doesn't want to do. Two large liquid bowel movements today, states she takes imodium at home due to not having gall bladder removed. Allow this nurse to check vitals during this shift.
--- NOTE | 2024-01-17 08:10 | P.PN_ITS ---
Subjective 2 Subjective: The patient has been having diarrhea since last night. She does have a history of diarrhea in the past due to having her gallbladder out. It seems to be worse yesterday and today. She has abdominal cramps with it. She continues to be confused at times. Still awaiting placement with [facility]. Vitals/I&O/Wt Last Vital Signs Temp 98.4 F 01/15/24 16:00 Pulse 96 01/17/24 07:36 Resp 16 01/17/24 07:36 BP 110/64 01/17/24 03:26 Pulse Ox 95 01/17/24 07:36 O2 Del Method Room Air 01/17/24 07:36 O2 Flow Rate 2 01/09/24 21:38 01/16/24 01/17/24 01/17/24 22:59 06:59 14:59 Intake Total 250 / 250 190 / 440 Output Total 301 / 301 Balance 250 / 250 -111 / 139 Weight last 48 hrs Weight 159 lb 9.6 oz Physical Exam 2 Narrative: General: Alert, not oriented to time or place. More interactive today. Mouth: No erythema or tonsilar enlargement. No masses noted. Neck: No thyromegaly. No lymphadenopathy. Heart: Regular rate and rhythm. No murmurs. Lungs: Decreased air entry bilaterally with mild to moderate bilateral wheezes without significant crackles or rhonchi. Abdomen: Soft, non-tender. No hepatosplenomegaly. Extremities: No pitting edema. Psych: Patient more interactive today and speaking in short sentences. Concerned about her diarrhea. Data 01/17/24 03:23 01/17/24 03:23 A&P Assessment and plan (1) Homicidal ideation: We are still waiting [facility] placement. The patient is stable from medical standpoint once her stool study comes back. The patient was started on Risperdal which seems to be helping to some degree, however not completely. (2) Acute psychosis: (3) Atrial fibrillation: The patient had pulled off all of her monitors and continues to be confused. Her A-fib seems to be under decent control at this point otherwise. (4) Diarrhea: The patient has had diarrhea that may be due to her not having a gallbladder as she has a history of this, however it seems to be worsening acutely, so we will check a C. difficile to be sure that this is not present. This will need to be checked prior to transfer. Attestations 2 Medical Necessity Statement*: The patient continues to need inpatient care as we monitor her stool homicidal ideations and acute psychosis. We are currently awaiting placement with geriatric psychiatry. Her stay will cross 2 midnights. Coding Level of Care Code Acute Code for Chg Fwd Diagnoses Homicidal ideation R45.850 Acute psychosis F23 Atrial fibrillation I48.91 Diarrhea R19.7
[2024-01-17] MEDS: apixaban 5 mg Tablet 2.5 MG PO ×2 (10:18→20:46)
[2024-01-17] MEDS: nystatin powder 15 gm Btl 1 APPLIC TOPICAL (10:19)
[2024-01-17] MEDS: risperiDONE 0.25 mg Tablet PO (10:19)
[2024-01-17] MEDS: atorvastatin 40 mg Tablet 20 MG PO (10:19)
[2024-01-17] MEDS: amiodarone 200 mg Tablet 400 MG PO ×2 (10:19→18:58)
[2024-01-17 14:19] LABS: C.Diff PCR (Lab) POSITIVE (Negative)
[2024-01-17 14:46] LABS: Clostridioides Difficile Toxin POSITIVE (Negative)
[2024-01-17] MEDS: vancomycin 125 mg Capsule PO ×2 (18:58→20:46)
[2024-01-17] MEDS: OLANZapine 5 mg TABLET 2.5 MG PO (18:59)
[2024-01-17] MEDS: pantoprazole 40 mg SDV IVP (20:45)
[2024-01-17] MEDS: trazodone 50 mg Tablet 25 MG PO (20:46)
[2024-01-18] VITALS (7 sets, daily range): BP systolic 119–144; BP diastolic 53–73; PULSE 55–66; RESP 16–17; TEMP 36.3–36.9; O2SAT 91–95
[2024-01-18 00:21] LABS: Iron 36 ug/dL (37-145); Total Iron Binding Capacity 180 mcg/dl; Unsaturated Iron Binding 144 ug/dL (112-347)
[2024-01-18 00:43] LABS: Vitamin B12 > 2000 pg/mL (232-1245)
[2024-01-18 04:06] LABS: Basophils % 0.2 %; Eosinophils % 0.5 %; Hematocrit 43.9 % (36-47); Lymphocytes # 1.9 10^3/uL (0.8-4.8); Lymphocytes % 30.2 %; Mean Corpuscular HGB Conc 31.9 g/dL (30-55); Mean Corpuscular Hemoglobin 28.9 pg (27-33); Mean Corpuscular Volume 90.7 fl (85-98); Monocytes # 0.9 10^3/uL (0.2-0.9); Monocytes % 14.4 %; Neutrophils # 3.32 10^3/uL (1.8-7.7); Neutrophils % 54.2 %; Nucleated Red Blood Cells % 0 %; Platelet Count 269 10^3/cmm (157-399); Red Blood Count 4.84 10^6/uL (3.85-5.65); Red Cell Distribution Width 13.3 % (12.1-15.1); White Blood Count 6.12 10^3/uL (3.29-11.43)
[2024-01-18 04:17] LABS: Estmated Average Glucose 120; Hemoglobin A1C 5.8 % (4.0-6.0)
[2024-01-18 04:22] LABS: Alanine Aminotransferase 21 U/L (0-33); Albumin Level 3.5 g/dL (3.5-5.2); Alkaline Phosphatase 63 U/L (35-105); Anion Gap 11.8 (5-19); Aspartate Amino Transferase 24 U/L (0-32); Blood Urea Nitrogen 22 mg/dL (8-23); Calcium 7.9 mg/dL (8.5-10.5); Carbon Dioxide 29 mmol/L (22-29); Chloride 99 mmol/L (98-107); Chol HDL Ratio 2.66 mg/dL (0.0-4.40); Cholesterol 93 mg/dL (0-200); Creatinine Clr Calc Pharmacy 40.4438; Globulin 2.7 g/dL (1.3-4.6); Glucose 87 mg/dL (65-115); HDL Cholesterol 35 mg/dL (60-100); LDL Cholesterol Calculated 40 mg/dL (50-129); Magnesium 2.2 mg/dL (1.7-2.3); Osmolality Calculated 285 mOsm/kg (285-295); Potassium 3.8 mmol/L (3.5-5.1); Sodium 136 mmol/L (136-145); Total Bilirubin 0.3 mg/dL (0.15-1.2); Total Protein 6.2 g/dL (6.6-8.7); Triglycerides 92 mg/dL (0-150); VLDL Cholestrol Calculation 18 mg/dL (0-30)
[2024-01-18 04:40] LABS: Folate Level > 20.0 ng/mL (4.8-37.3)
[2024-01-18] MEDS: amiodarone 200 mg Tablet 400 MG PO (08:40)
[2024-01-18] MEDS: apixaban 5 mg Tablet 2.5 MG PO (08:40)
[2024-01-18] MEDS: OLANZapine 5 mg TABLET 2.5 MG PO ×2 (08:41→17:03)
[2024-01-18] MEDS: vancomycin 125 mg Capsule PO ×4 (08:41→21:15)
[2024-01-18] MEDS: nystatin powder 15 gm Btl 1 APPLIC TOPICAL (08:42)
[2024-01-18] MEDS: atorvastatin 40 mg Tablet 20 MG PO (08:42)
--- NOTE | 2024-01-18 11:34 | P.NPUPN_ITS ---
Subjective NPU 2 Subjective: Patient presented today reporting that she is feeling okay. She is being moved to [facility] and we discussed this being a good sign that she is having some increased stability. We discussed a continued plan to consider geriatric psychiatry to get a better appreciation of her mental health challenges and develop a long-term plan for treatment and follow-up. She denied any side effects of the medication. Mental Status Exam 2 MSE Comments: This is a obese elderly white female in a hospital gown with limited grooming but adequate eye contact. No abnormal movements except for mild psychomotor retardation. Mostly uncooperative with exam in no acute distress. Speech was normal rate and volume. Mood described as fine affect irritable. Thought process linear but at times disorganized, thought content: Patient denied suicidal or homicidal ideation, there were no delusions reported but clear delusional and conspiratorial he thinking noted, auditory and visual hallucinations have been reported but she denies today. Attention and concentration appeared intact and memory was mostly unreliable. She is alert and oriented to person and place. Insight and judgment are impaired and impulse control is impaired. Vitals/I&O/Wt Last Vital Signs Temp 98.0 F 01/18/24 03:54 Pulse 57 L 01/18/24 07:45 Resp 16 01/18/24 07:45 BP 119/53 01/18/24 07:25 Pulse Ox 92 01/18/24 07:45 O2 Del Method Room Air 01/18/24 07:45 O2 Flow Rate 5 01/17/24 16:00 01/17/24 01/18/24 01/18/24 22:59 06:59 14:59 Intake Total 240 / 240 Output Total 0 / 301 Balance 0 / -211 240 / 240 Weight last 48 hrs Weight 69.853 kg Weight 72.393 kg Data NPU 01/18/24 02:44 01/18/24 02:44 A&P Assessment and plan (1) Acute psychosis: (2) Homicidal ideation: (3) MDD (major depressive disorder): (4) Paranoia: (5) Atrial fibrillation: (6) Hypertensive crisis, unspecified: (7) Confusion: (8) Cognitive impairment: Plan This is a 78-year-old white female known to psychiatry from a hospitalization back in 2020 where she presented with confusion and at times psychosis at others and reports of aggressive and threatening behaviors who returns with A-fib and a reported UTI with clear psychosis and confusion and a reported diagnosis of dementia. 1. Continue current medication. Discontinued Seroquel. Started Zyprexa 2.5 mg p.o. nightly. Additionally discontinue Haldol as needed and start Zyprexa as needed p.o. and IM. Discontinued risperidone and increased of Zyprexa 2.5 mg p.o. twice daily. 2. She could benefit from a geriatric psychiatric evaluation to explore her symptoms in an acute inpatient setting. 3. We will continue to follow. 4. Significant safety concerns exist with driving and possession of weapons in the home with young children that should be considered and some changes made to address those issues. 5. Recommend Josie after she has had some improvement to identify where she is functioning prior to discharge. 6. Plans moving forward for possible conservatorship should not be ignored. Attestations NPU 2 Medical Necessity Statement*: N/A. Please see primary team note for full details but again patient could benefit from a geriatric inpatient stay where she get a full evaluation with geriatric expertise. Coding Level of Care Code Acute Code for Chg Fwd Diagnoses Acute psychosis F23 Homicidal ideation R45.850 MDD (major depressive disorder) F32.9 Paranoia F22 Atrial fibrillation I48.91 Hypertensive crisis, unspecified I16.9 Confusion R41.0 Cognitive impairment R41.89
--- NOTE | 2024-01-18 11:59 | PC.SOCIAL ---
IMM Update Pg. 2 of IMM updated and reviewed with patient and daughter who verbalized understanding. Copy provided.
--- NOTE | 2024-01-18 15:18 | P.PN_ITS ---
Subjective 2 Subjective: Hospital course, labs appreciated. Today morning seen with daughter at bedside. Patient is awake, alert to self otherwise seems confused. Denies any nausea, vomiting. As per patient he has had multiple episodes of diarrhea but Nursing staff and sitter she has not had any further diarrhea since yesterday evening. Vitals/I&O/Wt Last Vital Signs Temp 98.0 F 01/18/24 03:54 Pulse 57 L 01/18/24 07:45 Resp 16 01/18/24 07:45 BP 119/53 01/18/24 07:25 Pulse Ox 92 01/18/24 07:45 O2 Del Method Room Air 01/18/24 07:45 O2 Flow Rate 5 01/17/24 16:00 01/18/24 01/18/24 01/18/24 06:59 14:59 22:59 Intake Total 240 / 240 Balance 240 / 240 Weight last 48 hrs Weight 69.853 kg Weight 72.393 kg Data 01/18/24 02:44 01/18/24 02:44 A&P Assessment and plan (1) C. difficile diarrhea: Continue with oral vancomycin 125 4 times daily. Monitor for further diarrhea. Hold off on Lomotil. Patient will need at least 14-day course of oral vancomycin. (2) Paranoia: Appreciate psychiatric recommendations. Plan for admission to [facility]. Patient's daughter is the DPOA. One-to-one sitter. (3) Atrial fibrillation: On admission with rapid ventricular response. Currently rate controlled to bradycardia. Switch amiodarone to 200 mg twice daily. Patient has already received more than 7 days of 40 mg twice daily dose. Switch Eliquis to 5 mg twice daily as per creatinine, age and body weight criteria. Appreciate echocardiogram results. (4) Acute on chronic renal failure: Baseline creatinine 1.1-1.3. MARY on admission. Most likely in setting of dehydration. Creatinine down to 1.1 today. Monitor renal functions daily. Patient does not have a IV line so we will hold off on IV fluids. Continue with oral hydration. Avoid nephrotoxic drugs. CT on pelvis done on admission ruled out obstructive nephropathy. (5) Bacteremia: Most likely contaminant. 1 out of 4 blood sets positive on admission. For now continue to monitor. Patient is afebrile. (6) Urinary tract infection: Abnormal UA on admission. Finished course of IV antibiotics on 01/14. (7) Insomnia: BID Seroquel Trazadone (8) Dehydration: Resolved. Plan Transfer to [facility] floor. Care discussed in detail with patient's daughter at bedside. Daughter is DPOA as well. Full code. Cardiac diet Eliquis will be sufficient for DVT prophylaxis Famotidine for PUD prophylaxis. Attestations 2 Medical Necessity Statement*: Requires further hospitalization while safe discharge planning to [facility] is done in a patient who was initially admitted for A-fib with RVR, dehydration due to MARY, currently having C. difficile in setting of baseline paranoia and agitation Diagnoses C. difficile diarrhea A04.72 Paranoia F22 Atrial fibrillation I48.91 Acute on chronic renal failure N17.9; N18.9 Bacteremia R78.81 Urinary tract infection N39.0 Insomnia G47.00 Dehydration E86.0
--- NOTE | 2024-01-18 15:24 | PC.NURSE ---
transferred to room 272 via w/c.report given to stella.
[2024-01-18] MEDS: famotidine 20 mg Tablet PO (17:03)
[2024-01-18] MEDS: amiodarone 200 mg Tablet PO (17:04)
[2024-01-18] MEDS: apixaban 5 mg Tablet PO (21:14)
[2024-01-18] MEDS: trazodone 50 mg Tablet 25 MG PO (21:14)
[2024-01-18] MEDS: acetaminophen 325 mg Tablet 650 MG PO (22:22)
[2024-01-19 03:38] VITALS: BP 168/68; PULSE 62; RESP 17; TEMP 37; O2SAT 92
--- NOTE | 2024-01-19 05:42 | PC.NURSE ---
pt refused IV placement, stated only if you give me strong tranquilizer no IV access, unable to administer IV solution
[2024-01-19 07:35] VITALS: BP 130/55; PULSE 61; RESP 18; TEMP 36.6; O2SAT 94
[2024-01-19 08:14] VITALS: PULSE 77; RESP 16; O2SAT 95
[2024-01-19] MEDS: amiodarone 200 mg Tablet PO ×2 (08:37→17:19)
[2024-01-19] MEDS: vancomycin 125 mg Capsule PO ×4 (08:37→19:52)
[2024-01-19] MEDS: nystatin powder 15 gm Btl 1 APPLIC TOPICAL (08:38)
[2024-01-19] MEDS: apixaban 5 mg Tablet PO ×2 (08:38→19:52)
[2024-01-19] MEDS: famotidine 20 mg Tablet PO ×2 (08:38→17:19)
[2024-01-19] MEDS: atorvastatin 40 mg Tablet 20 MG PO (08:38)
[2024-01-19] MEDS: OLANZapine 5 mg TABLET 2.5 MG PO ×2 (08:38→17:19)
[2024-01-19 10:27] LABS: Basophils % 0.2 %; Eosinophils % 0.4 %; Hematocrit 46.5 % (36-47); Lymphocytes % 24.2 %; Mean Corpuscular HGB Conc 32.9 g/dL (30-55); Mean Corpuscular Hemoglobin 28.9 pg (27-33); Mean Corpuscular Volume 87.7 fl (85-98); Mean Platelet Volume 8.5 fL (7.4-10.4); Monocytes # 0.8 10^3/uL (0.2-0.9); Monocytes % 9.8 %; Nucleated Red Blood Cells % 0 %; Platelet Count 284 10^3/cmm (157-399); White Blood Count 8.15 10^3/uL (3.29-11.43)
[2024-01-19 10:52] LABS: Alanine Aminotransferase 21 U/L (0-33); Albumin Level 3.9 g/dL (3.5-5.2); Alkaline Phosphatase 69 U/L (35-105); Aspartate Amino Transferase 20 U/L (0-32); Blood Urea Nitrogen 17 mg/dL (8-23); Calcium 8.3 mg/dL (8.5-10.5); Carbon Dioxide 24 mmol/L (22-29); Chloride 99 mmol/L (98-107); Creatinine Clr Calc Pharmacy 45.6021; Globulin 2.9 g/dL (1.3-4.6); Glucose 94 mg/dL (65-115); Osmolality Calculated 281 mOsm/kg (285-295); Sodium 135 mmol/L (136-145); Total Bilirubin 0.5 mg/dL (0.15-1.2); Total Protein 6.8 g/dL (6.6-8.7)
[2024-01-19 10:58] LABS: Anion Gap 15.9 (5-19); Potassium 3.9 mmol/L (3.5-5.1)
[2024-01-19 11:20] VITALS: BP 132/67; PULSE 68; RESP 16; O2SAT 93
--- NOTE | 2024-01-19 15:28 | P.PN_ITS ---
Subjective 2 Subjective: No acute vents overnight. Today morning examination patient sleeping comfortably in bed. Sitter at bedside. Patient's oral intake has improved. No further bowel movements documented. As per nursing staff patient has not had any further diarrhea. Vitals/I&O/Wt Last Vital Signs Temp 97.9 F 01/19/24 07:35 Pulse 68 01/19/24 11:20 Resp 16 01/19/24 11:20 BP 132/67 01/19/24 11:20 Pulse Ox 93 01/19/24 11:20 O2 Del Method Room Air 01/19/24 11:20 O2 Flow Rate 5 01/17/24 16:00 01/19/24 01/19/24 01/19/24 06:59 14:59 22:59 Intake Total 0 / 290 240 / 240 Balance 0 / 290 240 / 240 Weight last 48 hrs Weight 76.26 kg Weight 69.853 kg Physical Exam 2 Narrative: General: No acute distress, AO x 1-2, confused, tangential thoughts HEENT: PERRLA, pupils bilaterally equal and reactive Chest: Normal vesicular breath sounds, no added sounds, equal good air entry bilaterally CVS: S1-S2 regular, no murmurs, no tachycardia, no gallops, no rubs Abdomen: Soft, nontender, no organomegaly, bowel sounds present Neuro: No focal deficits, no facial deformity, power 5/5 in all limbs Data 01/19/24 10:14 01/19/24 10:14 A&P Assessment and plan (1) C. difficile diarrhea: Continue with oral vancomycin 125 4 times daily. Monitor for further diarrhea. Hold off on Lomotil. Patient will need at least 14-day course of oral vancomycin. (2) Paranoia: Appreciate psychiatric recommendations. Plan for admission to [facility]. Patient's daughter is the DPOA. One-to-one sitter. (3) Atrial fibrillation: On admission with rapid ventricular response. Currently rate controlled to bradycardia. Continue with amiodarone 200 mg twice daily for next 7 days followed by 200 mg daily. Continue with Eliquis 5 mg twice daily. Appreciate echocardiogram results. (4) Acute on chronic renal failure: Baseline creatinine 1.1-1.3. MARY on admission. Most likely in setting of dehydration. Creatinine currently stable. Monitor renal functions daily. Patient does not have a IV line so we will hold off on IV fluids. Continue with oral hydration. Avoid nephrotoxic drugs. CT on pelvis done on admission ruled out obstructive nephropathy. (5) Bacteremia: Most likely contaminant. 1 out of 4 blood sets positive on admission. For now continue to monitor. Patient is afebrile. (6) Urinary tract infection: Abnormal UA on admission. Finished course of IV antibiotics on 01/14. (7) Insomnia: BID Seroquel Trazadone (8) Dehydration: Resolved. Plan Care discussed in detail with patient's daughter at bedside. Daughter is DPOA as well. Mild hyponatremia: Continue to monitor. Repeat BMP in AM. Diet changed to regular diet. Full code. Switch to regular diet. Eliquis will be sufficient for DVT prophylaxis Famotidine for PUD prophylaxis. Discharge plan: Plan to discharge to [facility] as per recommendations from neuropsych team given concerns for paranoia leading to homicidal and suicidal ideation. Attestations 2 Medical Necessity Statement*: Requires further hospitalization while safe discharge planning is sought to [facility], C. difficile, rate controlled A-fib Diagnoses C. difficile diarrhea A04.72 Paranoia F22 Atrial fibrillation I48.91 Acute on chronic renal failure N17.9; N18.9 Bacteremia R78.81 Urinary tract infection N39.0 Insomnia G47.00 Dehydration E86.0
[2024-01-19 16:00] VITALS: BP 128/63; PULSE 61; RESP 18; TEMP 36.7; O2SAT 91
--- NOTE | 2024-01-19 16:38 | P.NPUPN_ITS ---
Subjective NPU 2 Subjective: Patient presented today reporting that she is feeling okay. She continued to have conspiracy theories and strange thoughts per staff report and direct observation. It appears that she has been medically cleared and would benefit from inpatient psychiatric care which we discussed. She is very focused on wanting to go home instead. She denied any side effects of the medications and appears to have adjusted to the early sleepiness it caused. Mental Status Exam 2 MSE Comments: This is a obese elderly white female in a hospital gown with limited grooming but adequate eye contact. No abnormal movements except for mild psychomotor retardation. Mostly uncooperative with exam in no acute distress. Speech was normal rate and volume. Mood described as fine affect irritable. Thought process linear but at times disorganized, thought content: Patient denied suicidal or homicidal ideation, there were no delusions reported but clear delusional and conspiratorial he thinking noted, auditory and visual hallucinations have been reported but she denies today. Attention and concentration appeared intact and memory was mostly unreliable. She is alert and oriented to person and place. Insight and judgment are impaired and impulse control is impaired. Vitals/I&O/Wt Last Vital Signs Temp 98.1 F 01/19/24 16:00 Pulse 61 01/19/24 16:00 Resp 18 01/19/24 16:00 BP 128/63 01/19/24 16:00 Pulse Ox 91 01/19/24 16:00 O2 Del Method Room Air 01/19/24 16:00 O2 Flow Rate 5 01/17/24 16:00 01/19/24 01/19/24 01/19/24 06:59 14:59 22:59 Intake Total 0 / 290 240 / 240 Balance 0 / 290 240 / 240 Weight last 48 hrs Weight 76.26 kg Weight 69.853 kg Data NPU 01/19/24 10:14 01/19/24 16:32 A&P Assessment and plan (1) Acute psychosis: (2) Homicidal ideation: (3) MDD (major depressive disorder): (4) Paranoia: (5) Atrial fibrillation: (6) Hypertensive crisis, unspecified: (7) Confusion: (8) Cognitive impairment: Plan This is a 78-year-old white female known to psychiatry from a hospitalization back in 2020 where she presented with confusion and at times psychosis at others and reports of aggressive and threatening behaviors who returns with A-fib and a reported UTI with clear psychosis and confusion and a reported diagnosis of dementia. 1. Continue current medication. Discontinued Seroquel. Started Zyprexa 2.5 mg p.o. nightly. Additionally discontinue Haldol as needed and start Zyprexa as needed p.o. and IM. Discontinued risperidone and increased of Zyprexa 2.5 mg p.o. twice daily. 2. She would benefit from a geriatric psychiatric evaluation to explore her symptoms in an acute inpatient setting. 3. We will continue to follow. 4. Significant safety concerns exist with driving and possession of weapons in the home with young children that should be considered and some changes made to address those issues. 5. Recommend Josie after she has had some improvement to identify where she is functioning prior to discharge. 6. Plans moving forward for possible conservatorship should not be ignored. Attestations NPU 2 Medical Necessity Statement*: N/A. Please see primary team note for full details but again patient could benefit from a geriatric inpatient stay where she get a full evaluation with geriatric expertise. Coding Level of Care Code Acute Code for Chg Fwd Diagnoses Acute psychosis F23 Homicidal ideation R45.850 MDD (major depressive disorder) F32.9 Paranoia F22 Atrial fibrillation I48.91 Hypertensive crisis, unspecified I16.9 Confusion R41.0 Cognitive impairment R41.89
[2024-01-19 17:41] LABS: Alanine Aminotransferase 18 U/L (0-33); Albumin Level 3.6 g/dL (3.5-5.2); Alkaline Phosphatase 64 U/L (35-105); Blood Urea Nitrogen 16 mg/dL (8-23); Calcium 8.2 mg/dL (8.5-10.5); Carbon Dioxide 22 mmol/L (22-29); Chloride 101 mmol/L (98-107); Creatinine Clr Calc Pharmacy 45.6021; Globulin 2.8 g/dL (1.3-4.6); Glucose 96 mg/dL (65-115); Osmolality Calculated 281 mOsm/kg (285-295); Sodium 135 mmol/L (136-145); Total Bilirubin 0.4 mg/dL (0.15-1.2); Total Protein 6.4 g/dL (6.6-8.7)
[2024-01-19 18:07] LABS: Anion Gap 16.3 (5-19); Aspartate Amino Transferase 23 U/L (0-32); Potassium 4.3 mmol/L (3.5-5.1)
[2024-01-19] MEDS: trazodone 50 mg Tablet 25 MG PO (19:51)
[2024-01-19 19:55] VITALS: BP 134/65; PULSE 62; RESP 18; TEMP 36.4; O2SAT 93
[2024-01-20] VITALS (9 sets, daily range): BP systolic 108–161; BP diastolic 61–78; PULSE 59–78; RESP 16–19; TEMP 36.3–36.4; O2SAT 91–94
[2024-01-20] MEDS: saline nasal spray 44mL Btl 1 SPRAY NASAL (03:30)
[2024-01-20] MEDS: OLANZapine 5 mg TABLET 2.5 MG PO ×3 (09:31→19:58)
[2024-01-20] MEDS: famotidine 20 mg Tablet PO ×2 (09:31→17:58)
[2024-01-20] MEDS: nystatin powder 15 gm Btl 1 APPLIC TOPICAL ×2 (09:32→17:58)
[2024-01-20] MEDS: vancomycin 125 mg Capsule PO ×4 (09:32→19:59)
[2024-01-20] MEDS: amiodarone 200 mg Tablet PO ×2 (09:32→17:58)
[2024-01-20] MEDS: atorvastatin 40 mg Tablet 20 MG PO (09:32)
[2024-01-20] MEDS: apixaban 5 mg Tablet PO ×2 (09:38→19:59)
[2024-01-20] MEDS: fexofenadine 60 mg Tablet 120 MG PO (11:59)
--- NOTE | 2024-01-20 14:27 | PC.NURSE ---
Addendum entered by Brooke Engle LPN 01/20/24 14:31: Physical copy of EKG, not in chart. Report only. Original Note: This nurse gave Janie with [facility] an update regarding her care. Janie requested for EKG strip to be faxed to her at [phone].
--- NOTE | 2024-01-20 14:50 | P.PN_ITS ---
Subjective 2 Subjective: No new complaints. No acute events overnight. Patient has not had any further episodes of diarrhea. States appetite is improving. Trying to eat more yogurt as per the patient. Asking if Lida can be added back to her medication list. States she takes Lida daily at home. Vitals/I&O/Wt Last Vital Signs Temp 97.6 F 01/20/24 11:50 Pulse 65 01/20/24 11:50 Resp 16 01/20/24 11:50 BP 108/61 01/20/24 11:50 Pulse Ox 91 01/20/24 11:35 O2 Del Method Room Air 01/20/24 11:35 O2 Flow Rate 5 01/17/24 16:00 01/19/24 01/20/24 01/20/24 22:59 06:59 14:59 Intake Total 100 / 340 500 / 840 240 / 240 Balance 100 / 340 500 / 840 240 / 240 Weight last 48 hrs Weight 72.121 kg Weight 76.26 kg Physical Exam 2 Narrative: General: No acute distress, AO x 1-2, confused, tangential thoughts HEENT: PERRLA, pupils bilaterally equal and reactive Chest: Normal vesicular breath sounds, no added sounds, equal good air entry bilaterally CVS: S1-S2 regular, no murmurs, no tachycardia, no gallops, no rubs Abdomen: Soft, nontender, no organomegaly, bowel sounds present Neuro: No focal deficits, no facial deformity, power 5/5 in all limbs Data 01/19/24 10:14 01/19/24 16:32 A&P Assessment and plan (1) C. difficile diarrhea: Continue with oral vancomycin 125 4 times daily. Monitor for further diarrhea. Hold off on Lomotil. Patient will need at least 14-day course of oral vancomycin. (2) Paranoia: Appreciate psychiatric recommendations. Plan for admission to [facility]. Patient's daughter is the DPOA. One-to-one sitter. (3) Atrial fibrillation: On admission with rapid ventricular response. Currently rate controlled to bradycardia. Continue with amiodarone 200 mg twice daily for next 7 days followed by 200 mg daily. Continue with Eliquis 5 mg twice daily. Appreciate echocardiogram results. (4) Acute on chronic renal failure: Baseline creatinine 1.1-1.3. MARY on admission. Most likely in setting of dehydration. Creatinine currently stable. Monitor renal functions daily. Patient does not have a IV line so we will hold off on IV fluids. Continue with oral hydration. Avoid nephrotoxic drugs. CT on pelvis done on admission ruled out obstructive nephropathy. (5) Bacteremia: Most likely contaminant. 1 out of 4 blood sets positive on admission. For now continue to monitor. Patient is afebrile. (6) Urinary tract infection: Abnormal UA on admission. Finished course of IV antibiotics on 01/14. (7) Insomnia: BID Seroquel Trazadone (8) Dehydration: Resolved. Plan Care discussed in detail with patient's daughter at bedside. Daughter is DPOA as well. Mild hyponatremia: Continue to monitor. Repeat BMP in AM. Diet changed to regular diet. Full code. Switch to regular diet. Eliquis will be sufficient for DVT prophylaxis Famotidine for PUD prophylaxis. Plan for the day: Continue with current medications. Continue with oral vancomycin for overall 14-day course. Repeat CBC and CMP in AM. Monitoring electrolytes and renal functions given MARY on admission. Discussed in detail with Dr. Baxter from [facility] Unit. Patient still seems to be having psychotic breakdown and would benefit from [facility]. Discharge plan: Plan to discharge to [facility] as per recommendations from neuropsych team given concerns for paranoia leading to homicidal and suicidal ideation. Attestations 2 Medical Necessity Statement*: Requires further hospitalization while transfer to [facility] is sought. Diagnoses C. difficile diarrhea A04.72 Paranoia F22 Atrial fibrillation I48.91 Acute on chronic renal failure N17.9; N18.9 Bacteremia R78.81 Urinary tract infection N39.0 Insomnia G47.00 Dehydration E86.0
--- NOTE | 2024-01-20 17:32 | ECG_ITS ---
[facility] Test Date: 2024-01-20 Pat Name: Keyona Chavarria Department: Room: 272 Gender: Female Gis Technician: : [id number] Requested By: Barry Blanchard Order Number: [id number] Gee MD: Abimael Soto M.D. Measurements Intervals [place] Rate: 66 P: 35 CO: 170 QRS: -38 QRSD: 83 T: 65 QT: 401 QTc: 422 Interpretive Statements SINUS RHYTHM LEFT AXIS DEVIATION [QRS AXIS < -30] PATTERN CONSISTENT WITH PULMONARY DISEASE Compared to ECG 01/09/2024 16:50:33 Left-axis deviation now present Atrial fibrillation no longer present T-wave abnormality no longer present Electronically Signed On 01-20-2024 18:14:59 CDT by Abimael Soto M.D. [email or web address]
--- NOTE | 2024-01-20 18:00 | P.TS_ITS ---
Transfer Summary Providers Date of Admission: 01/09/24 15:19 Date of Discharge/Transfer: 01/20/24 Attending Provider at Admission: Melina Ward MD Attending Provider at Transfer: Barry Blanchard MD Consults: Neuropsych: Dr. Baxter Cardiology: Dr. Felix Primary Care Provider: Radhika Kaminski MD Transfer Plans: Anticipated date of transfer: 01/20/24 . Receiving Facility: [facility] . Diagnoses at Discharge Discharge Diagnosis (1) C. difficile diarrhea: Status: Acute (2) Paranoia: Status: Acute (3) Atrial fibrillation: Status: Acute (4) Acute on chronic renal failure: Status: Acute (5) Bacteremia: Status: Acute (6) Urinary tract infection: Status: Acute (7) Insomnia: Status: Acute (8) Dehydration: Status: Acute Reason for Visit Reason for Visit dizzy, left side hip pain Brief History: History as per HPI: Keyona Chavarria is a 78 year old female With past medical history of hypertension Presented to the emergency room this evening with complaints of feeling fatigued, weakness. In the ED she was noted to have an elevated creatinine. Concern for possible urinary tract infection. The patient subsequently was noted to have atrial fibrillation. She denied any chest pain, dyspnea, fevers. Hospital Course Hospital Course Patient was admitted to the hospital further evaluation and management of A-fib with RVR with concerns for dehydration was started on IV fluids and broad-spectrum antibiotics for the possibility of UTI along with influenza. She was started on supportive treatment for influenza. Cardiology was consulted and she was started on IV amiodarone to which she responded well and heart rate has been well-controlled on oral amiodarone. She was continued on broad-spectrum IV antibiotics. On admission she had 1 out of 4 sets positive for Staph Hominis which are thought to be contamination. Repeat blood culture have been negative. During hospitalization patient had episode of paranoia and agitation with suicidal and homicidal ideation for which neuropsych team was consulted and she was diagnosed with acute psychosis. Patient's A-fib has been stable and rate controlled, patient has remained afebrile. Patient continues to have episodes of psychosis for which [facility] was advised from neuropsych team. Her hospitalization was complicated by patient developing episodes of diarrhea for which she was found to be positive for C. difficile. She is currently on oral vancomycin and is not having any further diarrhea for last 48 hours. Patient has been transferred to [facility] in hemodynamically stable condition on oral vancomycin till 01/30. Physical Exam Narrative: General: No acute distress, AO x 1-2, confused, tangential thoughts HEENT: PERRLA, pupils bilaterally equal and reactive Chest: Normal vesicular breath sounds, no added sounds, equal good air entry bilaterally CVS: S1-S2 regular, no murmurs, no tachycardia, no gallops, no rubs Abdomen: Soft, nontender, no organomegaly, bowel sounds present Neuro: No focal deficits, no facial deformity, power 5/5 in all limbs TS Data Studies Completed and Pending Pending at discharge Category Date Time Status Complete Blood Count w/Auto AM LABS Lab 01/21/24 04:00 Ordered Comprehensive Metabolic Panel AM LABS Lab 01/21/24 04:00 Ordered Completed Studies During Hospitalization Category Date Time Status CT abdomen pelvis wo con [id number] Stat Cat Scan 01/09/24 15:[address] head wo con* [id number] Stat Cat Scan 01/09/24 13:06 Completed XR chest 1V portable [id number] Routine Exams 01/10/24 13:19 Completed XR chest 1V portable [id number] Stat Exams 01/09/24 10:13 Completed CV. echo complete* [id number] Routine Ultrasound 01/12/24 09:30 Completed Laboratory Last Values WBC 8.15 10^3/uL (3.29-11.43) 01/19/24 10:14 RBC 5.30 10^6/uL (3.85-5.65) 01/19/24 10:14 Hgb 15.30 g/dL (11.27-16.99) 01/19/24 10:14 Hct 46.5 % (36-47) 01/19/24 10:14 MCV 87.7 fl (85-98) 01/19/24 10:14 MCH 28.9 pg (27-33) 01/19/24 10:14 MCHC 32.9 g/dL (30-55) 01/19/24 10:14 RDW 13.0 % (12.1-15.1) 01/19/24 10:14 Plt Count 284 10^3/cmm (157-399) 01/19/24 10:14 MPV 8.5 fL (7.4-10.4) 01/19/24 10:14 Neut % (Auto) 65.0 % 01/19/24 10:14 Lymph % (Auto) 24.2 % 01/19/24 10:14 [place] % (Auto) 9.8 % 01/19/24 10:14 Eos % (Auto) 0.4 % 01/19/24 10:14 Baso % (Auto) 0.2 % 01/19/24 10:14 Neut # (Auto) 5.30 10^3/uL (1.8-7.7) 01/19/24 10:14 Lymph # (Auto) 2.0 10^3/uL (0.8-4.8) 01/19/24 10:14 [place] # (Auto) 0.8 10^3/uL (0.2-0.9) 01/19/24 10:14 Eos # (Auto) 0.0 10^3/uL (0.0-0.8) 01/19/24 10:14 Baso # (Auto) 0.0 10^3/uL (0.0-0.1) 01/19/24 10:14 Nucleated RBC % (auto) 0 % 01/19/24 10:14 Nucleated RBCs # 0.0 /100WBC 01/19/24 10:14 Sodium 135 mmol/L (136-145) L 01/19/24 16:32 Potassium 4.3 mmol/L (3.5-5.1) 01/19/24 16:32 Chloride 101 mmol/L (98-107) 01/19/24 16:32 Carbon Dioxide 22 mmol/L (22-29) 01/19/24 16:32 Anion Gap 16.3 (5-19) 01/19/24 16:32 BUN 16 mg/dL (8-23) 01/19/24 16:32 Creatinine 1.0 mg/dL (0.5-0.9) H 01/19/24 16:32 GFR Calculation Not Reportable 01/19/24 16:32 Glucose 96 mg/dL (65-115) 01/19/24 16:32 POC Glucose 189 mg/dL (70-110) H 01/10/24 02:12 Estimat Average Glucose 120 01/18/24 02:44 Hemoglobin A1c 5.8 % (4.0-6.0) 01/18/24 02:44 Calculated Osmolality 281 mOsm/kg (285-295) L 01/19/24 16:32 Lactic Acid 3.6 mmol/L (0.5-2.2) H 01/09/24 11:28 Lactic Acid (Sepsis) 2.1 mmol/L (0.5-2.2) 01/09/24 15:16 Calcium 8.2 mg/dL (8.5-10.5) L 01/19/24 16:32 Magnesium 2.2 mg/dL (1.7-2.3) 01/18/24 02:44 Iron 36 ug/dL (37-145) L 01/18/24 00:00 TIBC 180 mcg/dl 01/18/24 00:00 % Saturation 20.0 % (20-50) 01/18/24 00:00 Unsat Iron Binding 144 ug/dL (112-347) 01/18/24 00:00 Total Bilirubin 0.4 mg/dL (0.15-1.2) 01/19/24 16:32 AST 23 U/L (0-32) 01/19/24 16:32 ALT 18 U/L (0-33) 01/19/24 16:32 Alkaline Phosphatase 64 U/L (35-105) 01/19/24 16:32 Creatine Kinase 131 U/L (26-192) 01/09/24 13:20 Troponin T Baseline 32 ng/L (0-10) H 01/09/24 11:28 Troponin T 120 Minute 32.29 ng/L (0-10) H 01/09/24 13:20 Delta Troponin T 0.29 ABS# (0-10) 01/09/24 13:20 Troponin T Hi Sens 6Hr 25.28 ng/L (0-10) H 01/09/24 17:47 Troponin T Hi Sens 6Hr Delta -6.72 ng/L (0-12) L 01/09/24 17:47 C-Reactive Protein 3.3 mg/L (0.0-4.9) 01/09/24 13:20 C-React Prot High Sens 0.280 mg/dL (0.0-0.3) 01/18/24 02:44 Total Protein 6.4 g/dL (6.6-8.7) L 01/19/24 16:32 Albumin 3.6 g/dL (3.5-5.2) 01/19/24 16:32 Globulin 2.8 g/dL (1.3-4.6) 01/19/24 16:32 Triglycerides 92 mg/dL (0-150) 01/18/24 02:44 Cholesterol 93 mg/dL (0-200) 01/18/24 02:44 LDL Cholesterol, Calc 40 mg/dL (50-129) L 01/18/24 02:44 Total VLDL Cholesterol 18 mg/dL (0-30) 01/18/24 02:44 HDL Cholesterol 35 mg/dL (60-100) L 01/18/24 02:44 Cholesterol/HDL Ratio 2.66 mg/dL (0.0-4.40) 01/18/24 02:44 Lipase 60 U/L (13-60) 01/15/24 04:14 Vitamin B12 > 2000 pg/mL (232-1245) H 01/18/24 00:00 Folate > 20.0 ng/mL (4.8-37.3) 01/18/24 02:44 TSH 0.70 uIU/mL (0.27-4.20) 01/09/24 13:20 Random Cortisol 9.38 ug/dL (2.47-19.5) 01/10/24 04:45 Urine Color Yellow (Yellow) 01/09/24 13:50 Urine Appearance Hazy (CLEAR) A 01/09/24 13:50 Urine pH 5 (5-7) 01/09/24 13:50 Ur Specific [place]nell 1.020 (1.005-1.030) 01/09/24 13:50 Urine Protein Trace (Negative) 01/09/24 13:50 Urine Glucose (UA) Norm (Normal) 01/09/24 13:50 Urine Ketones 1+ (Negative) H 01/09/24 13:50 Urine Blood Neg (Negative) 01/09/24 13:50 Urine Nitrate Negative (Negative) 01/09/24 13:50 Urine Bilirubin 1+ (Negative) H 01/09/24 13:50 Urine Urobilinogen Norm mg/dL (Negative) 01/09/24 13:50 Ur Leukocyte Esterase Trace (Negative) H 01/09/24 13:50 Urine RBC None /hpf (0-2) 01/09/24 13:50 Urine WBC 5-10 /hpf (0-5) H 01/09/24 13:50 Ur Squamous Epith Cells 10-15 /hpf (0-5) H 01/09/24 13:50 Amorphous Sediment Not Reportable 01/09/24 13:50 Urine Bacteria 2+ /hpf (NONE) H 01/09/24 13:50 Adenovirus (PCR) Not detected (NOT DETECT) 01/10/24 14:24 C. pneumoniae DNA (PCR) Not detected (NOT DETECT) 01/10/24 14:24 C. difficile (PCR) Positive (Negative) H 01/17/24 10:23 C.difficile Tox Confrm Positive (Negative) H 01/17/24 10:23 Coronavirus 229E (PCR) Not detected (NOT DETECT) 01/10/24 14:24 Human Metapneumovir PCR Not detected (NOT DETECT) 01/10/24 14:24 Influenza A (H1) PCR Not detected (NOT DETECT) 01/10/24 14:24 Influ A (H1/09) PCR Not detected (NOT DETECT) 01/10/24 14:24 Influenza A (H3) PCR Not detected (NOT DETECT) 01/10/24 14:24 Influenza Type A (PCR) Detected (NOT DETECT) A 01/10/24 14:24 Influenza Type B (PCR) Not detected (NOT DETECT) 01/10/24 14:24 M. pneumoniae (PCR) Not detected (NOT DETECT) 01/10/24 14:24 Parainfluenza 1 (PCR) Not detected (NOT DETECT) 01/10/24 14:24 Parainfluenza 2 (PCR) Not detected (NOT DETECT) 01/10/24 14:24 Parainfluenza 3 (PCR) Not detected (NOT DETECT) 01/10/24 14:24 Parainfluenza 4 (PCR) Not detected (NOT DETECT) 01/10/24 14:24 RSV Type A (PCR) Not detected (NOT DETECT) 01/10/24 14:24 RSV Type B (PCR) Not detected (NOT DETECT) 01/10/24 14:24 Entero/Rhino (PCR) Not detected (NOT DETECT) 01/10/24 14:24 SARS-CoV-2 (PCR) Not detected (NOT DETECT) 01/10/24 14:24 MRSA (PCR) Not detected (NOT DETECTED) 01/10/24 14:[address] 01/09/24 13:06 IMPRESSION: No acute intracranial findings. Abdomen/Pelvis CT 01/09/24 15:05 IMPRESSION: 1. No calcified urolithiasis or obstructive uropathy. 2. Common duct dilatation may be on the basis of prior cholecystectomy. 3. Additional chronic and incidental findings as above, to include atherosclerosis and colonic diverticulosis. Chest X-Ray 01/10/24 13:19 IMPRESSION: No acute findings. Microbiology 01/09/24 11:32 Blood Blood Culture - Final Staphylococcus hominis 01/09/24 11:28 Blood Blood Culture - Final NO GROWTH AFTER 5 DAYS Recent Clincial Data Last Vital Signs Temp 97.4 F L 01/20/24 15:20 Pulse 59 L 01/20/24 15:20 Resp 18 01/20/24 15:20 BP 161/73 01/20/24 15:20 Pulse Ox 94 01/20/24 15:20 O2 Del Method Room Air 01/20/24 15:20 O2 Flow Rate 5 01/17/24 16:00 Vital Signs Temp Pulse Resp BP Pulse Ox O2 Del Method 01/20/24 15:20 97.4 F L 59 L 18 161/73 94 Room Air 01/20/24 11:50 97.6 F 65 16 108/61 01/20/24 11:35 97.6 F 65 16 108/61 91 Room Air 01/20/24 08:41 76 16 93 Room Air 01/20/24 08:00 76 16 01/20/24 07:37 62 16 128/71 94 Room Air Intake & Output/Weight 01/18/24 01/19/24 01/20/24 01/21/24 06:59 06:59 06:59 06:59 Intake Total 90 / 90 290 / 290 840 / 840 360 / 360 Output Total 301 / 301 Balance -211 / -211 290 / 290 840 / 840 360 / 360 Weight 69.853 kg 76.26 kg 72.121 kg Vitals Last Vital Signs Temp 97.4 F L 01/20/24 15:20 Pulse 59 L 01/20/24 15:20 Resp 18 01/20/24 15:20 BP 161/73 01/20/24 15:20 Pulse Ox 94 01/20/24 15:20 O2 Del Method Room Air 01/20/24 15:20 O2 Flow Rate 5 01/17/24 16:00 TS Medications Medications Acetaminophen (Acetaminophen 325 Mg Tablet) 650 mg PO Q6H PRN PRN Reason: Mild/Mod Pain Or Temp >/= 101 Last Admin: 01/18/24 22:22 Dose: 650 mg Albuterol/Ipratropium (Ipratropium-Albuterol 3 Ml Neb) 3 ml INHALATION Q6H.RESP PRN PRN Reason: SHORTNESS OF BREATH Last Admin: 01/15/24 11:35 Dose: 3 ml Amiodarone HCl (Amiodarone 200 Mg Tablet) 200 mg PO BID [facility] Last Admin: 01/20/24 17:58 Dose: 200 mg Apixaban (Apixaban 5 Mg Tablet) 5 mg PO BID@0900,2100 [facility] Last Admin: 01/20/24 09:38 Dose: 5 mg Atorvastatin Calcium (Atorvastatin 40 Mg Tablet) 20 mg PO DAILY [facility] Last Admin: 01/20/24 09:32 Dose: 20 mg Famotidine (Famotidine 20 Mg Tablet) 20 mg PO BID [facility] Last Admin: 01/20/24 17:58 Dose: 20 mg Fexofenadine HCl (Fexofenadine 60 Mg Tablet) 120 mg PO DAILY [facility] Last Admin: 01/20/24 11:59 Dose: 120 mg Lanolin (Lanolin Oint 7 Gm) 1 applic TOPICAL PRN PRN PRN Reason: DRYNESS Nystatin (Nystatin Powder 15 Gm Btl) 1 applic TOPICAL BID [facility] Last Admin: 01/20/24 17:58 Dose: 1 applic Olanzapine (Olanzapine 10 Mg Vial) 5 mg IM Q6H PRN PRN Reason: SEVERE AGITATION Olanzapine (Olanzapine 5 Mg Tablet) 2.5 mg PO TID PRN PRN Reason: AGITATION Olanzapine (Olanzapine 5 Mg Tablet) 2.5 mg PO BID [facility] Last Admin: 01/20/24 17:57 Dose: 2.5 mg Ondansetron HCl (Ondansetron 2 Mg/Ml Sdv 2 Ml) 4 mg IVP Q8H PRN PRN Reason: vomiting, or N/V if npo Last Admin: 01/16/24 01:50 Dose: 4 mg Sodium Chloride (Saline Nasal [place] 44ml Btl) 1 spray NASAL PRN PRN PRN Reason: DRYNESS Last Admin: 01/20/24 03:30 Dose: 1 spray Tizanidine HCl (Tizanidine 4 Mg Tablet) 4 mg PO ONCE [facility] Last Admin: 01/14/24 16:03 Dose: 4 mg Trazodone HCl (Trazodone 50 Mg Tablet) 25 mg PO BEDTIME [facility] Last Admin: 01/19/24 19:51 Dose: 25 mg Vancomycin HCl (Vancomycin 125 Mg Capsule) 125 mg PO QID [facility] Stop: 01/31/24 16:59 Last Admin: 01/20/24 17:57 Dose: 125 mg Discontinued Medications Albuterol Sulfate (Albuterol 2.5 Mg/3 Ml Neb) 2.5 mg INHALATION ONCE ONE Stop: 01/09/24 10:14 Last Admin: 01/09/24 10:39 Dose: 2.5 mg Albuterol/Ipratropium (Ipratropium-Albuterol 3 Ml Neb) 3 ml INHALATION ONCE ONE Stop: 01/09/24 10:14 Last Admin: 01/09/24 10:39 Dose: 3 ml Amiodarone HCl (Amiodarone 200 Mg Tablet) 400 mg PO BID [facility] Last Admin: 01/18/24 08:40 Dose: 400 mg Apixaban (Apixaban 5 Mg Tablet) 2.5 mg PO BID@0900,2100 [facility] Last Admin: 01/18/24 08:40 Dose: 2.5 mg Digoxin (Digoxin 250 Mcg/Ml Inj 2 Ml) 500 mcg IVP NOW ONE Stop: 01/10/24 15:01 Last Admin: 01/10/24 15:20 Dose: 500 mcg Guaifenesin (Guaifenesin 600 Mg Tablet) 600 mg PO ONCE ONE Stop: 01/11/24 21:05 Last Admin: 01/11/24 21:16 Dose: 600 mg Haloperidol Lactate (Haloperidol Inj 5 Mg/Ml Inj 1 Ml) 2 mg IM NOW ONE Stop: 01/12/24 11:05 Last Admin: 01/12/24 11:12 Dose: 2 mg Haloperidol Lactate (Haloperidol Inj 5 Mg/Ml Inj 1 Ml) Confirm Administered Dose 5 mg .ROUTE .STK-MED ONE Stop: 01/12/24 11:06 Last Admin: 01/12/24 12:23 Dose: Not Given Haloperidol Lactate (Haloperidol Inj 5 Mg/Ml Inj 1 Ml) 5 mg IM Q6H PRN PRN Reason: AGITATION Hydroxyzine Pamoate (Hydroxyzine 25 Mg Capsule) 25 mg PO NOW ONE Stop: 01/09/24 21:10 Last Admin: 01/09/24 22:32 Dose: 25 mg Sodium Chloride (Sodium Chloride 0.9%) 1,000 mls @ 999 mls/hr IV .Q1H1M ONE Stop: 01/09/24 11:36 Last Infusion: 01/09/24 15:47 Dose: Infused Ceftriaxone Sodium 1,000 mg/ (Sodium Chloride) 50 mls @ 100 mls/hr IV ONCE ONE; Protocol Stop: 01/09/24 14:53 Last Infusion: 01/09/24 18:21 Dose: Infused Sodium Chloride (Sodium Chloride 0.9%) 500 mls @ 999 mls/hr IV .Q31M ONE Stop: 01/09/24 21:40 Last Infusion: 01/09/24 23:13 Dose: Infused Ceftriaxone Sodium 1,000 mg/ (Sodium Chloride) 50 mls @ 100 mls/hr IV 1500 [facility]; Protocol Last Admin: 01/17/24 15:34 Dose: Not Given Amiodarone HCl/Dextrose (Nexterone) 150 mg in 100 mls @ 400 mls/hr IV ONCE ONE Stop: 01/09/24 22:41 Last Infusion: 01/09/24 23:25 Dose: Infused Amiodarone HCl/Dextrose (Nexterone) 360 mg in 200 mls @ 0 mls/hr IV .Q0M [facility]; Protocol Last Titration: 01/11/24 05:41 Dose: Infused Sodium Chloride (Sodium Chloride 0.9%) 500 mls @ 500 mls/hr IV ONCE ONE Stop: 01/09/24 23:27 Last Infusion: 01/10/24 00:28 Dose: Infused Lactated Ringer's (Lactated Ringers) 1,000 mls @ 75 mls/hr IV .[id number] [facility] Last Admin: 01/11/24 12:19 Dose: Not Given Sodium Chloride (Sodium Chloride 0.9%) 1,000 mls @ 50 mls/hr IV .Q20H [facility] Stop: 01/19/24 09:59 Last Admin: 01/19/24 05:42 Dose: Not Given Loperamide HCl (Loperamide 2 Mg Capsule) 2 mg PO QID PRN PRN Reason: DIARRHEA Methylprednisolone Sodium Succinate (Methylprednisolone Sod Succ 125 Mg/2 Ml Inj) 125 mg IVP ONCE ONE Stop: 01/09/24 10:14 Last Admin: 01/09/24 11:27 Dose: 125 mg Metoprolol Tartrate (Metoprolol Tartrate 25 Mg Tablet) 25 mg PO ONCE ONE Stop: 01/10/24 14:59 Last Admin: 01/10/24 15:20 Dose: 25 mg Olanzapine (Olanzapine 5 Mg Tablet) 2.5 mg PO BEDTIME [facility] Last Admin: 01/16/24 20:21 Dose: 2.5 mg Ondansetron HCl (Ondansetron 2 Mg/Ml Sdv 2 Ml) 4 mg IVP ONCE ONE Stop: 01/09/24 10:37 Last Admin: 01/09/24 11:27 Dose: 4 mg Pantoprazole Sodium (Pantoprazole 40 Mg Sdv) 40 mg IVP Q24H [facility] Last Admin: 01/17/24 20:45 Dose: 40 mg Quetiapine Fumarate (Quetiapine 25 Mg Tablet) 25 mg PO BEDTIME [facility] Last Admin: 01/11/24 20:04 Dose: 25 mg Quetiapine Fumarate (Quetiapine 25 Mg Tablet) 25 mg PO ONCE ONE Stop: 01/11/24 12:16 Last Admin: 01/11/24 12:26 Dose: 25 mg Quetiapine Fumarate (Quetiapine 25 Mg Tablet) 25 mg PO BID [facility] Last Admin: 01/15/24 07:52 Dose: 25 mg Risperidone (Risperidone 0.25 Mg Tablet) 0.25 mg PO BID [facility] Last Admin: 01/17/24 10:19 Dose: 0.25 mg Allergies codeine Allergy (Verified 12/25/21 08:03) ALGY-Rash Home Medications lovastatin 10 mg tablet 20 mg PO DAILY 02/07/20 [History Confirmed 01/09/24] cyanocobalamin (vitamin B-12) 5,000 mcg/mL sublingual drops (Vitamin B-12) 5,000 mcg sublingual BID 02/17/20 [History Confirmed 01/09/24] omega 0-[id number]-fish oil 1,000 mg (120 mg-180 mg) capsule (Fish Oil) 2 cap PO DAILY 02/17/20 [History Confirmed 01/09/24] lisinopril 10 mg tablet 20 mg PO QA 03/14/21 [History Confirmed 01/09/24] amlodipine 10 mg tablet 10 mg PO QAM #30 tabs 05/07/21 [Rx Confirmed 01/09/24] metoprolol tartrate 25 mg tablet 12.5 mg (1/2 x 25 mg) PO BID 30 days #30 tabs 05/30/21 [Rx Confirmed 01/09/24] meloxicam 7.5 mg tablet 15 mg PO DAILY 01/09/24 [History Confirmed 01/09/24] Discharge Plan Discharge Patient Disposition: Home Condition: Stable Prescriptions: No Action amlodipine 10 mg tablet 10 mg PO QAM Qty: 30 0RF lovastatin 10 mg tablet 20 mg PO DAILY metoprolol tartrate 25 mg tablet 12.5 mg PO BID 30 Days Qty: 30 0RF omega [id number]-wlr-fish oil [Fish Oil] 1,000 mg (120 mg-180 mg) Capsule 2 cap PO DAILY Vitamin B-12 5,000 mcg/mL Drops 5,000 mcg SUBLINGUAL BID lisinopril 10 mg tablet 20 mg PO QAM meloxicam 7.5 mg tablet 15 mg PO DAILY Discharge Orders: Transfer Out of Facility (Order); Ordered 01/20/24 Ordered By: Barry Blanchard Referrals: Radhika Kaminski MD [Primary Care Provider] - Discharge Diet: Regular Discharge Activity: Resume usual activity and Increase activity as tolerated Patient Instructions: Opioid Safety Transfer Attestations Time Spent in Transfer Care: greater than 30 min Specific Discharge Activities: educating and/or supporting family/caregiver, discussing with pcp/other providers, discussing with pillowcase cleaner/social workers/dc planners, documenting/other paperwork and evaluating patient/reviewing data Status at Transfer: Cognitive status at transfer: severely impaired cognition ; Behavioral status at transfer: cooperative ; Functional status at transfer: independent ambulation ; Overall status at transfer: patient has a new base line Quality Metrics Clinical Quality Measures [ No reported AMI, CVA or VTE this stay] Coding Level of Care Code 52665 Total time (in minutes) for Discharge: 50 Diagnoses C. difficile diarrhea A04.72 Paranoia F22 Atrial fibrillation I48.91 Acute on chronic renal failure N17.9; N18.9 Bacteremia R78.81 Urinary tract infection N39.0 Insomnia G47.00 Dehydration E86.0
--- NOTE | 2024-01-20 18:32 | PC.NURSE ---
This nurse called report to THANH Lima at [facility] at 1830. [phone]
[2024-01-20] MEDS: acetaminophen 325 mg Tablet 650 MG PO (19:57)
[2024-01-20] MEDS: trazodone 50 mg Tablet 25 MG PO (19:58)
--- NOTE | 2024-01-20 21:58 | PC.NURSE ---
2100 EMS here to transfer patient to [facility]. [facility] and daughter notified.
== END 2024-01-20 21:00 | DRG 309 ==
LOC: ER 15:30 → CSU 17:15 → MEDSURG 01-18 15:00
PROVIDERS: Family Medicine; Admitting Provider Internal Medicine; Emergency Provider Emergency Medicine; PCP Family Medicine; Visit Provider Student in an Organized Health Care Education/Training Program
DX: I48.91 Unspecified atrial fibrillation (principal); A04.72 Enterocolitis due to Clostridium difficile, not specified as recurrent; N17.9 Acute kidney failure, unspecified; N39.0 Urinary tract infection, site not specified; J10.1 Influenza due to other identified influenza virus with other respiratory manifestations; Z11.52 Encounter for screening for COVID-19; F22 Delusional disorders; I12.9 Hypertensive chronic kidney disease with stage 1 through stage 4 chronic kidney disease, or unspecified chronic kidney disease; N18.9 Chronic kidney disease, unspecified; G47.00 Insomnia, unspecified; E86.0 Dehydration; M25.552 Pain in left hip; R45.850 Homicidal ideations; F29 Unspecified psychosis not due to a substance or known physiological condition; F32.9 Major depressive disorder, single episode, unspecified; J44.9 Chronic obstructive pulmonary disease, unspecified; K21.9 Gastro-esophageal reflux disease without esophagitis; I25.10 Atherosclerotic heart disease of native coronary artery without angina pectoris; Z96.652 Presence of left artificial knee joint; Z87.891 Personal history of nicotine dependence; E66.9 Obesity, unspecified; Z68.27 Body mass index [BMI] 27.0-27.9, adult; F03.90 Unspecified dementia, unspecified severity, without behavioral disturbance, psychotic disturbance, mood disturbance, and anxiety; Z75.1 Person awaiting admission to adequate facility elsewhere
CPT/HCPCS: 36415; 36416; 70450; 71045; 74176; 80048; 80053; 80061; 81001; 82533; 82550; 82607; 82746; 82962; 83036; 83540; 83550; 83605; 83690; 83735; 84443; 84484; 85025; 86140; 86141; 87040; 87077; 87150; 87186; 87205; 87324; 87486; 87493; 87581; 87633; 87641; 93005; 93306; 94640; 94664; 96365; 96372; 96375; 96376; 97116; 97161; 97167; 99285; A4222; C9113; J0283; J0696; J1160; J1630; J2405; J2919; J7030; J7040; J7120; J7613